=== PATIENT | female | born 1955 | race Caucasian/White ===

== ENCOUNTER 2019-11-17 12:00 | Outpatient (RCR) | payer MEDICARE, OTHER, SELFPAY ==
--- NOTE | 2019-11-17 13:41 | OTOPEVAL ---
OCCUPATIONAL THERAPY INITIAL EVALUATION 11/17/2019 Thank you for referring this patient to [facility]. La will benefit from skilled OT 1x/week for 6 weeks for deficits outlined below. Please review, sign, date and return this plan of care WHITNEY. I agree with and certify that the following plan of care is medically necessary. Referring Physician Date Referring Provider: Anjel Vail MD *OT Outpatient Evaluation Start: 11/17/19 12:37 Freq: Status: Active Protocol: Document 11/17/19 12:37 ROGER (Rec: 11/17/19 13:33 ROGER [email or web address]) Therapy Assessment Status Assessment Status Assessment Status Evaluation Outpatient Past Medical History Neurological History Hx Other Neurological Disorders Yes Cardiovascular History Hx Cardiac Catheterization Yes: 2004 Genitourinary History Hx Kidney Stones Yes Musculoskeletal History Hx Arthritis Yes: cervical and thoracic spine, left hip, B hands Hx Joint Replacement Yes: B TKA 2015 Reproductive History Hx Hysterectomy Yes: 1994 Pain History Has Past Pain Affected Your Daily Life Yes: Fibromyalgia Evaluation Information Problem Diagnosis 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 Onset 11/03/19 Prior Level of Function Activity Level (Last 3 Months) Hand Dominance Right Activity of Daily Living Ability Independent Cooking Yes Cleaning Yes Laundry Yes Shopping Yes Driving Yes Pain Assessment Timing of Pain Assessment Timing of Pain Assessment Assessment Pain Scale Pain Scale Used Numeric (1 - 10) Self Report Pain Assessment Left Thumb(s) Reported Pain Level 2 Pain Description Aching,Dull Greatest Pain Intensity 6 Pain Score Pain Score 2: Self Report Upper Extremity Range of Motion Elbow/Forearm Range of Motion Bilateral Forearm Supination - Active 85 Forearm Pronation - Active 85 Elbow/Forearm Range of Motion None Limitations Wrist Range of Motion Right Wrist Flexion - Active 65 Wrist Extension - Active 70 Wrist Radial Deviation - Active 22 Wrist Ulnar Deviation - Active 40 Left Wrist Flexion - Active 50 Wrist Extension - Active 60 Wrist Radial Deviation - Active 15 Wrist Ulnar Deviation - Active 40 Thumb Range of Motion Right Thumb MCP Flexion - Active 50 Thumb IP Flexion - Active 85 Thumb CMC Radial Abduction - Active 55 Thumb CMC Palmar Abduction - Active 50 Opposition to 5th Digit Base 0 Left
--- NOTE | 2019-12-29 15:05 | OTOPEVAL ---
OCCUPATIONAL THERAPY RE-EVALUATION AND DISCHARGE REPORT 12/29/2019 Thank you for referring La Heck to [facility]. As described below, La has achieved normal ROM and is independent with strengthening. She demonstrates good understanding of HEP. Please review, sign, date and return this D/C WHITNEY. I agree with and certify that the following plan of care is medically necessary. 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 She has progressed well with therapy, achieving normal ROM values, which are symmetrical or greater than the right side. She continues to have decreased pinch strengths, but a this time is independent with home exercises to continue to gently improve her strength over time. Subjective Information Patient reports improved Query Text:As Reported By Patient/ ability to open a jar, tie Family bows, opening containers/bags, and holding her phone. She reports being very pleased with her progress and is in agreement with discharge. She understands to continue her graded strengthening program for at least another 3 weeks. Pain Assessment Timing of Pain Assessment Timing of Pain Assessment Re-assessment Pain Scale Pain Scale Used Numeric (1 - 10) Self Report Pain Assessment Left Thumb(s) Reported Pain Level 0 Pain Score Pain Score 0: Self Report Additional Pain Score Comments No pain at rest Pain increases to 3/10 with ADLs and with home exercises Pt is independent with non- medication pain mgmt Upper Extremity Range of Motion Elbow/Forearm Range of Motion Left Reason Not Measured WNL/Left Elbow/Forearm Range of Motion Comments (L) elbow and forearm AROM remained WNL Wrist Range of Motion Left Wrist Flexion - Active 65 Wrist Extension - Active 70 Wr
== END 2019-12-29 15:33 | disposition home or self-care (01) ==
LOC: ANHOT 12:00
PROVIDERS: PCP Internal Medicine
DX: M18.0 Bilateral primary osteoarthritis of first carpometacarpal joints (principal)
CPT/HCPCS: 97018; 97110; 97140; 97165

== ENCOUNTER 2020-02-02 10:24 | Emergency (ER) | payer MEDICARE, OTHER, SELFPAY ==
[2020-02-02 10:42] VITALS: BP 172/87; PULSE 103; RESP 16; TEMP 36.8; O2SAT 97
--- NOTE | 2020-02-02 11:46 | ED.FEMALEGU ---
HPI - Female Genitourinary General Chief complaint: Urogenital-Female Stated complaint: possile UTI Time Seen by Provider: 02/02/20 11:47 Source: patient and RN notes reviewed Mode of arrival: ambulatory Limitations: no limitations History of Present Illness HPI Narrative: This is a 64 years old female presented office for evaluation of possible UTI. Symptoms began a couple days ago with lower back aches and then this morning she woke up with urinary retention, urgency, and painful with urinating. Denies fever, vomiting, abnormal vaginal discharge. Admits to history of UTI many years ago with similar symptoms. Related Data Home Medications Medication Instructions Recorded Confirmed albuterol sulfate 90 mcg/actuation 2 puff INHALATION Q4-6H PRN gm 07/25/19 02/02/20 aerosol inhaler blood sugar diagnostic #10 each 07/25/19 02/02/20 blood-glucose meter #1 each 07/25/19 02/02/20 cholecalciferol (vitamin D3) 50 2,000 unit PO DAILY 07/25/19 02/02/20 mcg (2,000 unit) tablet ferrous sulfate 325 mg (65 mg 325 mg PO DAILY 07/25/19 02/02/20 iron) tablet hydroxyzine HCl 50 mg tablet 50 mg PO TID PRN 07/25/19 02/02/20 lancets 33 gauge #100 each 07/25/19 02/02/20 multivitamin 1 tablet PO DAILY 07/25/19 02/02/20 syringe with needle, safety 3 mL #50 each 07/25/19 02/02/20 25 gauge x 1 cyanocobalamin (vitamin B-12) 1,000 mcg IM .[id number] ml 08/21/19 02/02/20 1,000 mcg/mL injection solution losartan 50 mg tablet 50 mg PO DAILY 12/30/19 02/02/20 Allergies Allergy/AdvReac Type Severity Reaction Status Date / Time No Known Allergies Allergy Verified 02/02/20 10:31 lisinopril AdvReac Intermediate Cough Verified 02/02/20 10:31 Review of Systems Review of Systems: Narrative: CONSTITUTIONAL: Denies fever or feeling ill. ENT: Denies congestion CARDIOVASCULAR: Denies chest pain RESPIRATORY: Denies dyspnea GASTROINTESTINAL: Denies abdominal pain, nausea, vomiting, diarrhea. GENITOURINARY: reports urinary pain,frequency, urgency and suprabupic pain SKIN: Denies rash MUSCULOSKELETAL: Reports lower back pain without any injury NEUROLOGIC: Denies lightheaded PMFSH Past Medical History Medical History Anxiety B12 deficiency Cholecystectomy planned Depression Diabetes mellitus Fibromyalgia GERD (gastroesophageal reflux disease) Hypercholesterolemia Hypertension Hypokalemia Insomnia RLS (restless legs syndrome) Syncope Surgical History Surgical History H/O abdominal hysterectomy H/O section H/O elbow surgery right Nerve release H/O gastric bypass H/O knee surgery Family History Family History Sibling Diabetes mellitus Mother Hypertension Father Family history of cardiovascular disease Heart disease Social History Social History Smoking status: Never smoker Alcohol intake: never Substance use: current Substance use type: marijuana Other substance usage details: Pt uses MMJ Gender identity (if verbalized by the patient): Female Comments At time of signature, I agree with nursing past medical, surgical, social and family history. There is no relevant family history pertinent to the presenting complaint. Exam Narrative: Exam Narrative: GENERAL: This is a well-nourished, well-developed patient, in no apparent distress. CARDIOVASCULAR: Regular rate and rhythm without murmurs, gallops, or rubs. RESPIRATORY: Clear to auscultation. Breath sounds equal bilaterally. No wheezes, rales, or rhonchi. GASTROINTESTINAL: Abdomen soft, non-tender, nondistended. Bowel sounds are active. No hepato-splenomegaly, or palpable masses. No guarding. SKIN: warm, intact with no suspicious lesions or rash, good texture and turgor. NEURO: awake, alert, and oriented to person, place and
== END 2020-02-02 11:55 | disposition home or self-care (01) ==
PROVIDERS: Emergency Provider Nurse Practitioner; PCP Internal Medicine
DX: N39.0 Urinary tract infection, site not specified (principal); E53.8 Deficiency of other specified B group vitamins; E11.9 Type 2 diabetes mellitus without complications; M79.7 Fibromyalgia; K21.9 Gastro-esophageal reflux disease without esophagitis; E78.00 Pure hypercholesterolemia, unspecified; G25.81 Restless legs syndrome; Z98.84 Bariatric surgery status
CPT/HCPCS: 81003; 87077; 87086; 87088; 87186; 99213; G0463

== ENCOUNTER 2020-04-12 09:11 | Outpatient (NON) | payer MEDICARE, OTHER, SELFPAY ==
[2020-04-12 19:46] LABS: SARS-CoV-2 RNA PCR Negative
== END 2020-04-12 09:12 ==
PROVIDERS: Visit Provider Clinical Nurse Specialist
DX: R53.83 Other fatigue (principal); Z20.828 Contact with and (suspected) exposure to other viral communicable diseases
CPT/HCPCS: 87635; C9803; U0003

== ENCOUNTER 2020-07-10 06:47 | Outpatient (NON) | payer MEDICARE, OTHER, SELFPAY ==
[2020-07-10 22:14] LABS: SARS-CoV-2 RNA PCR Negative
== END 2020-07-10 06:48 ==
PROVIDERS: PCP Internal Medicine; Visit Provider Nurse Practitioner
DX: Z20.828 Contact with and (suspected) exposure to other viral communicable diseases (principal); R05 Cough
CPT/HCPCS: 87635; C9803; U0003

== ENCOUNTER → 2020-07-22 14:44 | Outpatient (CLI) | payer MEDICARE, OTHER, SELFPAY ==
--- NOTE | ~2020-07-22 | XR_ITS ---
XR chest 2V DATE: 07/22/2020 15:06 INDICATION: Cough for 2 weeks TECHNIQUE: 2 views COMPARISON: 04/27/2019 portable AP chest at 2248 hours FINDINGS: There is cardiomegaly. There is rightward convex soft tissue prominence overlying the right suprahilar area on the frontal view, which may represent some prominence of the ascending aorta, pos sibly due to rotation; ascending aortic aneurysm is not excluded. Consider repeat PA chest without ro tation and CT thorax if necessary. Cardiomegaly. No pulmonary vascular congestion or pleural effusion or pneumothorax. The lungs are mod erately hyperinflated but clear of infiltrate or consolidation. Diffuse osteopenia. Degenerative spurring of the thoracic and lumbar spine. IMPRESSION: The ascending aorta appears prominent, possibly due to rotation; ascending aortic aneurys m is not excluded. Consider repeat PA chest without rotation, and CT thorax if necessary Cardiomegaly Moderate hyperinflation Diffuse osteopenia; degenerative spurring of the thoracic and lumbar spine Reviewed, dictated and finalized at location A. ETING AUTOMATION ANALYST IMPRESSION: The ascending aorta appears prominent, possibly due to rotation; as cending aortic aneurysm is not excluded. Consider repeat PA chest without rotat ion, and CT thorax if necessary Cardiomegaly Moderate hyperinflation Diffuse osteopenia; degenerative spurring of the thoracic and lumbar spine
== END ==
PROVIDERS: PCP Internal Medicine; Visit Provider Clinical Nurse Specialist
DX: R05 Cough (principal); M85.88 Other specified disorders of bone density and structure, other site; I51.7 Cardiomegaly
CPT/HCPCS: 71046

== ENCOUNTER → 2020-07-23 07:10 | Outpatient (CLI) | payer MEDICARE, OTHER, SELFPAY ==
--- NOTE | ~2020-07-23 | XR_ITS ---
EXAMINATION: XR chest 2V EXAM DATE: 07/23/2020 07:35 INDICATION: Cough. Rotation reported on yesterday's chest x-ray. TECHNIQUE: Frontal and lateral projections of the chest obtained and reviewed, no charge due to repea t from yesterday's exam. Comparison is made to prior examination from 07/22/2020, 04/27/2019. FINDINGS: The lungs are clear. There are no pleural effusions. The cardiomediastinal silhouette is within normal limits. There is no pneumothorax suspected. Patient has diffuse idiopathic skeletal h yperostosis (DISH). Mild to moderate thoracolumbar scoliosis. IMPRESSION: No acute cardiopulmonary findings. Reviewed, dictated and finalized at location A. MANAGER
== END ==
PROVIDERS: PCP Internal Medicine; Visit Provider Clinical Nurse Specialist
DX: R05 Cough (principal)
CPT/HCPCS: 99199

== ENCOUNTER 2021-06-15 09:00 | Outpatient (RCR) | payer MEDICARE, OTHER, SELFPAY ==
--- NOTE | 2021-05-25 11:40 | OTOPEVAL ---
OCCUPATIONAL THERAPY INITIAL EVALUATION 05/25/21 La presents today ~9 weeks following right thumb LRTI procedure. She has been completing active ROM with excellent compliance and has near normal ROM with some end-range deficits in the wrist and thumb. Today she was instructed in some gentle passive ROM exercises as well as progressed to light resistive singe machine operator/pinch strengthening. She demonstrates excellent understanding of the new HEP. Plan to have the patient follow up in 2 weeks to assess progress and continue to progress her resistive HEP as tolerated. It was not deemed necessary to follow up weekly as she is very compliant with all materials. Thank you for referring La Heck to [facility].? The patient is scheduled to be seen for therapy? 0-1x/week for 4 weeks. Please review, sign, date and return this plan of care WHITNEY. I agree with and certify that the following plan of care is medically necessary. Referring Physician Date Referring Provider: Dr. Anjel Vail *OT Outpatient Evaluation Start: 05/25/21 10:34 Therapy Assessment Status Assessment Status Assessment Status Evaluation Outpatient Past Medical History Neurological History Hx Other Neurological Disorders Yes: restless leg syndrome Cardiovascular History Hx Angina Yes Hx Cardiac Catheterization Yes: 2004 Hx Hypercholesterolemia Yes Hx Hypertension Yes Hx Mitral Valve Prolapse Yes Respiratory History Hx Asthma Yes Hx Sleep Apnea Yes Gastrointestinal History Hx Cholecystectomy Yes Hx Gastric Bypass Surgery Yes Hx Gastroesophageal Reflux Disease Yes Hx Gastrointestinal Bleed Yes Hx Irritable Bowel Yes Genitourinary History Hx Kidney Stones Yes Hx Other Genitourinary Disorders Yes: 2 blader suspensions and implant/removal of bladder implant Musculoskeletal History Hx Arthritis Yes: cervical and thoracic spine, left hip, B hands Hx Back Pain Yes Hx Degenerative Disk Disease Yes Hx Fibromyalgia Yes Hx Joint Replacement Yes: B TKA 2015 Hx Orthopedic Surgery Yes: elbow tendon release X 3 and left hand repair Hx Other Musculoskeletal Disorders Yes: Bilat LRTI procedures to thumbs Hematological History Hx Hematological Disorders No Significant History Endocrine History Hx Diabetes Yes: controlled with diet HEENT History Hx Sinus Problems Yes Integumentary History Hx Skin Disorders No Significant History Reproductive History Hx Section Yes Hx Hysterectomy Yes: 1994 Psychosocial History Hx Depression Yes Pain History Has Past Pain Affected Your Daily Life Yes: Fibromyalgia-uses medical marijuana
--- NOTE | 2021-06-15 10:59 | OTOPEVAL ---
OCCUPATIONAL THERAPY REASSESSMENT AND DISCHARGE SUMMARY 06/15/21 La presents today, 12 weeks post op, with return to normal ROM. She has functional strength, but does have some residual weakness for which she has HEP to continue to complete independently. Plan to d/c today with HEP. Patient is in agreement with this plan and is happy with her outcomes. Thank you for referring La Heck to [facility].? Please review, sign, date and return this Discharge Summary WHITNEY. I agree with and certify that the following plan of care is medically necessary. Referring Physician Date Referring Provider: Dr. Anjel Vail *OT Outpatient Re-Evaluation Start: 05/25/21 10:34 Diagnosis Right thumb CMC s/p LRTI procedure Onset 03/21/21 Subjective Information Patient reports that in the Query Text:As Reported By Patient/ last three weeks she has made Family a lot of progress with functional use of the hand. Noting no difficulties with ADLs and she has returned to making cards again. She does feel some soreness in the hand after prolonged use, but no pain. Pain Assessment Timing of Pain Assessment Timing of Pain Assessment Pre-Treatment Pain Scale Pain Scale Used Numeric (1 - 10) Self Report Pain Assessment Right Thumb(s) Reported Pain Level 0 Pain Description Soreness Lowest Pain Intensity 0 Greatest Pain Intensity 0 Pain Score Pain Score 0: Self Report Additional Pain Score Comments No reports of pain in the last week, just some muscle soreness from working the hand /wrist. Upper Extremity Range of Motion Wrist Range of Motion Right Wrist Flexion - Active 70 Wrist Extension - Active 70 Wrist Radial Deviation - Active 25 Wrist Ulnar Deviation - Active 40 Wrist Range of Motion Comments Wrist ROM returned to normal limits. Finger Range of Motion Right Reason Not Measured WNL/Right Finger Range of Motion Comments Hook fist, full fist, lumbricals, and interossei are WNL. Thumb Range of Motion Right Thumb MCP Flexion - Active 45 Thumb IP Flexion - Active 65 Thumb CMC Radial Abduction - Active 45 Thumb CMC Palmar Abduction - Active 50 Opposition to 2nd Digit Tip 0 Opposition to 3rd Digit Tip 0 Opposition to 4th Digit Tip 0 Opposition to 5th Digit Tip 0 Opposition to 5th Digit Base 0 Thumb Range of Motion Comments Right thumb ROM is
== END 2021-06-15 15:29 | disposition home or self-care (01) ==
LOC: ANHOT 09:00
PROVIDERS: PCP Internal Medicine
DX: M18.11 Unilateral primary osteoarthritis of first carpometacarpal joint, right hand (principal)
CPT/HCPCS: 97018; 97110; 97140; 97165

== ENCOUNTER 2021-07-17 12:44 | Emergency (ER) | payer MEDICARE, OTHER, SELFPAY ==
[2021-07-17 12:56] VITALS: BP 130/71; PULSE 105; RESP 16; TEMP 37.3; O2SAT 98
--- NOTE | 2021-07-17 13:24 | ED.URI ---
HPI - URI/Sore Throat General Chief Complaint: Upper Respiratory Infection Stated Complaint: Congestion Time Seen by Provider: 07/17/21 13:07 Source: patient and RN notes reviewed Mode of arrival: ambulatory Limitations: no limitations History of Present Illness HPI Narrative: Patient presents today with a 10-day history of cough with mild shortness of breath and fatigue. Symptoms have been worsening over the last 2 days. Denies headache, sore throat, ear pain, fever. She took a rapid COVID-19 test at home that was negative a few days ago. She has been taking some Robitussin severe without relief. History of diabetes. MD elicited complaint: cough Related Data Home Medications Medication Instructions Recorded Confirmed blood sugar diagnostic #10 each 07/25/19 07/17/21 blood-glucose meter #1 each 07/25/19 07/17/21 ferrous sulfate 325 mg (65 mg 325 mg PO DAILY 07/25/19 07/17/21 iron) tablet lancets 33 gauge #100 each 07/25/19 07/17/21 multivitamin 1 tablet PO DAILY 07/25/19 07/17/21 magnesium 30 mg tablet 30 mg PO DAILY 03/02/21 07/17/21 potassium chloride 10 mEq 10 meq PO DAILY 03/02/21 07/17/21 tablet,extended release bupropion HCl 100 mg tablet 100 mg PO BID 06/08/21 07/17/21 metformin 500 mg tablet,extended 500 mg PO BID 06/08/21 07/17/21 release 24 hr sertraline 50 mg PO DAILY 07/17/21 07/17/21 Allergies Allergy/AdvReac Type Severity Reaction Status Date / Time lisinopril AdvReac Intermediate Cough Verified 07/17/21 13:04 Review of Systems Review of Systems: CONSTITUTIONAL: Denies body aches, fever, chills, or sweats.+ Fatigue EYES: Denies visual changes, redness, or discharge. ENT: Denies rhinorrhea, sore throat, or otalgia.+ Congestion CARDIOVASCULAR: Denies chest pain, palpitations, or edema. RESPIRATORY: + Cough, mild shortness of breath GASTROINTESTINAL: Denies abdominal pain, nausea, vomiting, or diarrhea. GENITOURINARY: Denies dysuria or hematuria. SKIN: Denies rash, itching, or wounds. MUSCULOSKELETAL: Denies back pain, joint pain, or myalgia. NEUROLOGIC: Denies headache, numbness, tingling, or weakness. PSYCH: Denies depression or anxiety. [facility] Past Medical History Medical History Anxiety B12 deficiency Cholecystectomy planned Diabetes mellitus Fibromyalgia GERD (gastroesophageal reflux disease) Hypercholesterolemia Hypertension Hypokalemia Insomnia RLS (restless legs syndrome) Syncope Surgical History Surgical History H/O abdominal hysterectomy H/O section H/O elbow surgery right Nerve release H/O gastric bypass H/O knee surgery History of hand surgery left hand 10/2019 Family History Family History Sibling Diabetes mellitus Mother Hypertension Father Family history of cardiovascular disease Heart disease Social History Social History Smoking status: Never smoker Alcohol intake: current Alcohol use details: very rarely Substance use: current Substance use type: marijuana Other substance usage details: Pt uses MMJ Gender identity (if verbalized by the patient): Female Comments At time of signature, I have reviewed and agree with nursing past medical, surgical, social and family history unless otherwise noted. Please see nursing chart for further information. There is no relevant family history pertinent to the presenting complaint Exam Narrative: GENERAL: Well-appearing, well-nourished, and in no acute distress. HEAD: Normocephalic, atraumatic. EYES: EOMI. No redness or drainage. Conjunctivae normal. ENT: Mucous membranes pink and moist. Nares clear. No rhinorrhea. TMs normal bilaterally. Throat normal. Uvula midline. NECK: Normal AROM. Supple. No lymphadenopathy. CHEST: No respiratory
== END 2021-07-17 13:40 | disposition home or self-care (01) ==
PROVIDERS: Emergency Provider Nurse Practitioner; PCP Internal Medicine
DX: J40 Bronchitis, not specified as acute or chronic (principal); J01.90 Acute sinusitis, unspecified; E11.9 Type 2 diabetes mellitus without complications; M79.7 Fibromyalgia; K21.9 Gastro-esophageal reflux disease without esophagitis; E78.00 Pure hypercholesterolemia, unspecified; I10 Essential (primary) hypertension; G25.81 Restless legs syndrome; F41.9 Anxiety disorder, unspecified
CPT/HCPCS: 99213; G0463

== ENCOUNTER → 2021-08-01 14:22 | Outpatient (CLI) | payer MEDICARE, OTHER, SELFPAY ==
--- NOTE | ~2021-08-01 | XR_ITS ---
EXAMINATION: XR hip LT min 2V DATE: 08/01/2021 14:40 INDICATION: Left hip pain. TECHNIQUE: 2 views of left hip were obtained. COMPARISON: Pelvis radiographs 11/13/2014 FINDINGS: Bone alignment is normal. No acute fracture. There is an old healed fracture of left parasy mphyseal pubis. Left hip joint space is normal. IMPRESSION: 1. Normal left hip. Reviewed, dictated and finalized at location B. NING DEVELOPMENT MANAGER IMPRESSION: 1. Normal left hip.
== END ==
PROVIDERS: PCP Internal Medicine; Visit Provider Clinical Nurse Specialist
DX: M25.559 Pain in unspecified hip (principal); W19.XXXA Unspecified fall, initial encounter
CPT/HCPCS: 73502

== ENCOUNTER 2021-08-12 08:07 | Outpatient (CLI) | payer MEDICARE, OTHER, SELFPAY ==
--- NOTE | 2021-08-15 11:30 | WPDSLEEPSTUD ---
Sleep Study Date of Study: 08/12/21 <Aminah Garay, DO - Last Filed: 08/15/21 12:55> Ordering Provider: Bonilla WalkerMD <Aminah Garay, DO - Last Filed: 08/15/21 12:55> Interpreting Physician: Aminah Garay DO <Aminah Garay, DO - Last Filed: 08/15/21 12:55> Sleep Study Type: Polysomnogram <Aminah Garay DO - Last Filed: 08/15/21 12:55> Height: 1.68 m <Aminah Garay DO - Last Filed: 08/15/21 12:55> Weight: 113.398 kg <Aminah Garay DO - Last Filed: 08/15/21 12:55> Body Mass Index: 40.3 <Aminah Garay DO - Last Filed: 08/15/21 12:55> Neck Circumference (inches): 17 <Aminah Garay DO - Last Filed: 08/15/21 12:55> Florien: 9 <Aminah Garay DO - Last Filed: 08/15/21 12:55> Reason for Sleep Study The patient has a history of JENNIFER. Had gastric bypass and lost a significant amount of weight. Has started gaining weight and has poor sleep. <Aminah Garay DO - Last Filed: 08/15/21 12:55> Sleep History The patient is a 66 y/o female with HTN, Type 2 DM, RLS, Anxiety, Depression, and previously diagnosed JENNIFER that had a PSG ordered by her psychiatrist for unrefreshing sleep. The patient sleeps in a recliner. at home. She is currently on ropinirole 2 mg tid for RLS. the patient occasionally awakens from sleep short of breath. She denies awakening at night with heartburn, belching or cough. She occasionally snores but is rarely loud enough that others complain. She occasionally has trouble sleeping when she has a cold. She denies waking up gasping for air throughout the night. She denies having breathing problems at night observed by others. She denies sweating excessively at night. She occasionally has heart palpitations or irregular heartbeats during the night. She frequently falls asleep during the day but never while driving. She denies sleep paralysis, cataplexy and hypnagogic / hypnopompic hallucinations. She occasionally has thoughts racing through her mind. She frequently feels sad or depressed. She frequently feels anxious. She frequently notices parts of her body jerk. She occasionally kicks during the night. She frequently experiences crawling and aching feelings in her legs as well as leg pain during the night. She denies grinding her teeth during the night and awakening with jaw pain in the morning. She is constantly bothered by pain during the day and frequently awakened by pain during the night. She constantly wakes up feeling stiff in the morning with sore and achy muscles. She goes to bed at 11:00 p.m. on weekdays as well as weekends. It takes her 10 minutes to fall asleep. She wakes up between 3 and 4 times a night. When she awakens, she will change positions and watch television. She wakes up at 4:00 a.m. on both weekdays and weekends. She typically gets 2-3 hours of sleep per night. She does not stay in bed after awakening in the morning. She currently lives with her . She denies consuming any caffeinated beverages within 2 hours of bedtime. She does not engage in physical exercise before bedtime. He will watch television before falling asleep. She does take naps in the afternoon or the evening but they are not refreshing. She does not consume any caffeinated beverages during the day. She denies tobacco, alcohol and recreational drug use. She does use medical marijuana. <Aminah Garay DO - Last Filed: 08/15/21 12:55> [facility] Past Medical History Medical History: Medical History Anxiety B12 deficiency Cholecystectomy planned Diabetes mellitus Fibromyalgia GERD (gastroesophageal reflux disease) Hypercholesterolemia Hypertension Hypokalemia Insomnia RLS (restless legs syndrome) Syncope <Aminah Garay DO - Last Filed: 08/15/21 12:55> Surgical History Surgical History: Surgical
[2021-08-15 11:36] VITALS: BMI 40.3
== END 2021-08-13 07:18 | disposition home or self-care (01) ==
LOC: ANHCSM 08:13
PROVIDERS: PCP Internal Medicine; Visit Provider Psychiatry & Neurology Psychiatry
DX: G47.33 Obstructive sleep apnea (adult) (pediatric) (principal); G47.9 Sleep disorder, unspecified; G47.61 Periodic limb movement disorder; I47.2 Ventricular tachycardia
CPT/HCPCS: 95810

== ENCOUNTER 2022-01-05 01:03 | Day surgery (SDC) | payer MEDICARE, OTHER, SELFPAY ==
[2021-12-23 12:47] VITALS: BMI 36.3
--- NOTE | 2022-01-05 07:59 | WPDANESEPPF ---
Anes - Initial Pre Proc Eval Procedure: Operation Date: 01/05/22 10:30 Proposed Procedures p Screening Colonoscopy - Nithin Marmolejo MD Date/Time: 01/05/22 07:59 Surgeon: Nithin Marmolejo MD Pre Op Diagnosis: neoplasm screening Patient Data Age: 66 Gender: F Height: 1.68 m Weight: 102.3 kg Allergies Allergy/AdvReac Type Severity Reaction Status Date / Time lisinopril AdvReac Intermediate Cough Verified 01/05/22 09:51 Home Medications Medication Instructions Recorded Confirmed Type blood sugar diagnostic #10 each 07/25/19 12/07/21 History blood-glucose meter #1 each 07/25/19 12/07/21 History ferrous sulfate 325 mg (65 mg 325 mg PO DAILY 07/25/19 01/05/22 History iron) tablet lancets 33 gauge #100 each 07/25/19 12/07/21 History multivitamin 1 tablet PO DAILY 07/25/19 01/05/22 History albuterol sulfate 90 mcg/actuation 2 puff INHALATION Q4-6H PRN #8.5 g 07/12/20 01/05/22 Rx aerosol inhaler cholecalciferol (vitamin D3) 1,250 1,250 mcg PO WEEKLY #8 cap 08/18/20 01/05/22 Rx mcg (50,000 unit) capsule hydroxyzine HCl 50 mg tablet 50 mg PO TID PRN #90 tablet 12/01/20 01/05/22 Rx magnesium 30 mg tablet 30 mg PO DAILY 03/02/21 01/05/22 History syringe with needle, safety 3 mL #50 each 04/28/21 12/07/21 Rx 25 gauge x 1 buspirone 10 mg tablet 10 mg PO BID #180 tablet 05/23/21 01/05/22 Rx metformin 500 mg tablet,extended 500 mg PO BID 06/08/21 01/05/22 History release 24 hr cyclobenzaprine 10 mg tablet 10 mg PO BID PRN #30 tablet 08/01/21 01/05/22 Rx hydrochlorothiazide 25 mg tablet 25 mg PO DAILY 08/01/21 01/05/22 History potassium chloride 10 mEq 10 meq PO DAILY #1 cap 08/01/21 01/05/22 Rx capsule,extended release arginine HCl (L-arginine) 1,000 mg 1,000 mg PO BID tablet 09/26/21 01/05/22 History tablet furosemide 40 mg tablet 40 mg PO QAM PRN 09/26/21 01/05/22 History nitroglycerin 0.2 mg/hr 1 patch TRANSDERMAL DAILY 09/26/21 01/05/22 History transdermal 24 hour patch sacubitril 49 mg-valsartan 51 mg 1 tablet PO BID 09/26/21 01/05/22 History tablet sertraline 50 mg tablet 100 mg PO DAILY tablet 09/26/21 01/05/22 History ropinirole 2 mg tablet 2 mg PO TID #90 tablet 10/27/21 01/05/22 Rx cyanocobalamin (vitamin B-12) 1,000 mcg IM .[id number] #25 ml 12/07/21 01/05/22 Rx 1,000 mcg/mL injection solution gabapentin 300 mg capsule 300 mg PO TID #270 cap 12/07/21 01/05/22 Rx metoprolol tartrate 25 mg tablet 25 mg PO BID tablet 12/07/21 01/05/22 History rosuvastatin 10 mg tablet 10 mg PO DAILY #90 tablet 12/07/21 01/05/22 Rx trazodone 50 mg tablet 50 mg PO QHS PRN tablet 12/07/21 01/05/22 History Patient hx anesthesia problems: none Family hx anesthesia problems: none Results Review: All pre-operative results and documents have been reviewed as part of the pre-operative evaluation. FORMERLY [facility] Past Medical History Medical History (Updated 01/05/22 @ 08:01 by Wilmar Diaz MD) Anxiety Asthma B12 deficiency CAD (coronary artery disease) Cholecystectomy planned Depression Diabetes mellitus Fibromyalgia GERD (gastroesophageal reflux disease) Hypercholesterolemia Hypertension Hypokalemia Insomnia Left ventricular hypertrophy Obesity JENNIFER (obstructive sleep apnea) RLS (restless legs syndrome) Syncope Systolic heart failure ef 45% Surgical History Surgical History (Updated 01/05/22 @ 09:50 by Nithin Marmolejo MD) H/O abdominal hysterectomy H/O section H/O elbow surgery right Nerve release H/O gastric bypass H/O knee surgery History of hand surgery left hand 10/2019 Family History Family History Sibling Diabetes mellitus Mother Hypertension Father Family history of cardiovascular disease Heart disease Social History Social History Smoking status: Never smoker Alcohol intake: never Alcohol use details: very rarely Substance use: current
--- NOTE | 2022-01-05 09:48 | WPDGICN ---
Assessment and Plan Assessment and plan (1) Screening for colon cancer: Code(s): Z12.11 - Encounter for screening for malignant neoplasm of colon Status: Acute Assessment and Plan: Patient presents for screening colonoscopy. Appears to be at average risk for colon polyps. Further recommendations will be given after endoscopy. (2) Change in bowel habit: Code(s): R19.4 - Change in bowel habit Status: Acute Assessment and Plan: Patient reports occasional episodes of diarrhea after eating this may represent dumping syndrome although irritable bowel syndrome is also likely. Plan is to add fiber to her diet. (3) H/O gastric bypass: Code(s): Z98.84 - Bariatric surgery status Status: Acute GI Consult Note Consult date/time: 01/05/22 09:48 HPI: La Heck is a 66 year old female Presents for screening colonoscopy. Patient current weight appetite bowel movements are normal. She denies abdominal pain. She has had no bleeding. Patient does give a history of prior gastric bypass. She reports that occasionally after eating she will have an urgent diarrhea stool. This is improved on recently adding fiber to her diet. She denies any weight loss or abdominal pain. Family history is noncontributory. Review of Systems Review of Systems: All systems reviewed & are unremarkable except as noted in HPI and below PMFSH Past Medical History Medical History (Updated 01/05/22 @ 08:01 by Wilmar Diaz MD) Anxiety Asthma B12 deficiency CAD (coronary artery disease) Cholecystectomy planned Depression Diabetes mellitus Fibromyalgia GERD (gastroesophageal reflux disease) Hypercholesterolemia Hypertension Hypokalemia Insomnia Left ventricular hypertrophy Obesity JENNIFER (obstructive sleep apnea) RLS (restless legs syndrome) Syncope Systolic heart failure ef 45% Surgical History Surgical History (Updated 01/05/22 @ 09:50 by Nithin Marmolejo MD) H/O abdominal hysterectomy H/O section H/O elbow surgery right Nerve release H/O gastric bypass H/O knee surgery History of hand surgery left hand 10/2019 Family History Family History Sibling Diabetes mellitus Mother Hypertension Father Family history of cardiovascular disease Heart disease Social History Social History Smoking status: Never smoker Alcohol intake: never Alcohol use details: very rarely Substance use: current Substance use type: marijuana Other substance usage details: medical marijuana as needed Living arrangements: with family Gender identity (if verbalized by the patient): Female Spiritual care concerns: No Meds Home Medications and Allergies Home Medications Medication Instructions Recorded Confirmed Type blood sugar diagnostic #10 each 07/25/19 12/07/21 History blood-glucose meter #1 each 07/25/19 12/07/21 History ferrous sulfate 325 mg (65 mg 325 mg PO DAILY 07/25/19 12/23/21 History iron) tablet lancets 33 gauge #100 each 07/25/19 12/07/21 History multivitamin 1 tablet PO DAILY 07/25/19 12/23/21 History albuterol sulfate 90 mcg/actuation 2 puff INHALATION Q4-6H PRN #8.5 g 07/12/20 12/23/21 Rx aerosol inhaler cholecalciferol (vitamin D3) 1,250 1,250 mcg PO WEEKLY #8 cap 08/18/20 12/23/21 Rx mcg (50,000 unit) capsule hydroxyzine HCl 50 mg tablet 50 mg PO TID PRN #90 tablet 12/01/20 12/23/21 Rx magnesium 30 mg tablet 30 mg PO DAILY 03/02/21 12/23/21 History syringe with needle, safety 3 mL #50 each 04/28/21 12/07/21 Rx 25 gauge x 1 buspirone 10 mg tablet 10 mg PO BID #180 tablet 05/23/21 12/23/21 Rx metformin 500 mg tablet,extended 500 mg PO BID 06/08/21 12/23/21 History release 24 hr cyclobenzaprine 10 mg tablet 10 mg PO BID PRN #30 tablet 08/01/21 12/23/21 Rx hydrochlorothiazide 25 mg tablet 25 mg PO DAILY 08/01/21 12/23/21 H
[2022-01-05 09:53] VITALS: BP 114/66; PULSE 80; RESP 18; TEMP 36.2; O2SAT 100; BMI 35.0
[2022-01-05 09:53] LABS: Glucose Point of Care 113 mg/dl (65-105)
--- NOTE | 2022-01-05 09:57 | SUR.PREOP ---
Notified Dr. Daiz that patient is wearing a Nitrodur patch on her left chest.
[2022-01-05] MEDS: LACTATED RINGERS 1,000 ML 150 ML IV CONT (10:14)
[2022-01-05 11:11] VITALS: BP 87/49; PULSE 83; RESP 24; O2SAT 100
[2022-01-05 11:21] VITALS: BP 106/58; PULSE 80; RESP 20; O2SAT 100
[2022-01-05 11:31] VITALS: BP 98/55; PULSE 80; RESP 22; O2SAT 100
== END 2022-01-05 11:48 | disposition home or self-care (01) ==
PROVIDERS: PCP Internal Medicine; Visit Provider Internal Medicine Gastroenterology
PROC: 0DJD8ZZ Inspection of Lower Intestinal Tract, Via Natural or Artificial Opening Endoscopic (ICD-10-PCS; CPT 45378; principal; 2022-01-05 10:30)
DX: Z12.11 Encounter for screening for malignant neoplasm of colon (principal); D12.2 Benign neoplasm of ascending colon; K64.8 Other hemorrhoids; K57.30 Diverticulosis of large intestine without perforation or abscess without bleeding; R19.4 Change in bowel habit; Z98.84 Bariatric surgery status; I11.0 Hypertensive heart disease with heart failure; I50.20 Unspecified systolic (congestive) heart failure; I25.10 Atherosclerotic heart disease of native coronary artery without angina pectoris; E11.9 Type 2 diabetes mellitus without complications; E78.00 Pure hypercholesterolemia, unspecified; F41.8 Other specified anxiety disorders; J45.909 Unspecified asthma, uncomplicated; M79.7 Fibromyalgia; G47.33 Obstructive sleep apnea (adult) (pediatric); G25.81 Restless legs syndrome; E53.8 Deficiency of other specified B group vitamins; F12.90 Cannabis use, unspecified, uncomplicated; Z79.51 Long term (current) use of inhaled steroids; Z79.84 Long term (current) use of oral hypoglycemic drugs; E66.9 Obesity, unspecified; Z68.35 Body mass index [BMI] 35.0-35.9, adult
CPT/HCPCS: 45385; 82948; 88305; J2704; J7120

== ENCOUNTER → 2022-02-27 11:08 | Outpatient (CLI) | payer MEDICARE, OTHER, SELFPAY ==
--- NOTE | ~2022-02-27 | XR_ITS ---
XR lumbar spine min 4V DATE: 02/27/2022 11:32 INDICATION: Back pain TECHNIQUE: AP, lateral, bilateral oblique views and coned lateral lumbosacral projection COMPARISON: 08/04/2013 lumbar spine FINDINGS: Mild thoracolumbar dextroscoliosis. Prominent bridging osteophytes are noted throughout the lower thoracic and lumbar spine. There is moderate loss of interspace height at L3-4, L4-5 and L5-S1. There is degenerative changes apophyseal joints with associated grade 1 anterolisthesis at L4-5. No lumbar spine fracture or bone destruction, spondylolysis. The sacroiliac joints are intact. Surgical clips, right upper quadrant, likely due to cholecystectomy. Distal abdominal aortic, common iliac artery calcification IMPRESSION: Mild thoracolumbar dextro scoliosis Osteopenia Bridging osteophytes throughout the lower thoracic and lumbar spine Moderate degenerative disc disease mid and lower lumbar spine Grade 1 anterolisthesis at L4-5 due to degenerative change at the apophyseal joints Reviewed, dictated and finalized at location A. IMPRESSION: Mild thoracolumbar dextro scoliosis Osteopenia Bridging osteophytes throughout the lower thoracic and lumbar spine Moderate degenerative disc disease mid and lower lumbar spine Grade 1 anterolisthesis at L4-5 due to degenerative change at the apophyseal elyssa ints
== END ==
PROVIDERS: PCP Family Medicine; Visit Provider Family Medicine
DX: M54.9 Dorsalgia, unspecified (principal); G89.29 Other chronic pain; M41.85 Other forms of scoliosis, thoracolumbar region; M25.78 Osteophyte, vertebrae; M51.36 Other intervertebral disc degeneration, lumbar region; M43.16 Spondylolisthesis, lumbar region
CPT/HCPCS: 72110

== ENCOUNTER → 2022-05-01 13:18 | Outpatient (CLI) | payer MEDICARE, OTHER, SELFPAY ==
--- NOTE | ~2022-05-01 | MM_ITS ---
EXAMINATION: MM screening ev BI w giorgi HISTORY: Screening TECHNIQUE: Craniocaudal and mediolateral oblique 3-D tomosynthesis images were obtained and synthetic 2-D images were generated. CAD analysis was submitted and interpreted. COMPARISON: No prior mammogram is available for comparison at this institution. BREAST PARENCHYMAL COMPOSITION: The breasts are almost entirely fatty. FINDINGS: There is no evidence of suspicious mass, calcification, or architectural distortion to sugg est malignancy in either breast. There has been no suspicious interval change. IMPRESSION: 1. No mammographic evidence of malignancy. 2. Recommend routine screening mammography in one year. BI-RADS Category 1: Negative Reviewed, dictated and finalized at location A.
== END ==
PROVIDERS: PCP Family Medicine; Visit Provider Family Medicine
DX: Z12.31 Encounter for screening mammogram for malignant neoplasm of breast (principal)
CPT/HCPCS: 77063; 77067

== ENCOUNTER → 2022-05-30 13:53 | Outpatient (CLI) | payer MEDICARE, OTHER, SELFPAY ==
--- NOTE | ~2022-05-30 | XR_ITS ---
XR_[id number]_CR DATE: 05/30/2022 14:08 INDICATION: Stubbed fifth toe. Pain and swelling. TECHNIQUE: Standing 4 view examination COMPARISON: None FINDINGS: There is prominent posterior and minimal plantar calcaneal enthesopathy. There is prominent osteoarthritis at the first metatarsophalangeal joint. There is osteoarthritis at multiple additional interphalangeal joints. No erosive change is noted. No fracture, dislocation, periosteal reaction or bone destruction is detected. IMPRESSION: Multifocal osteophyte is Calcaneal enthesopathy No recent fracture or dislocation Reviewed, dictated and finalized at Location A. Reviewed, dictated and finalized at location B.
== END ==
PROVIDERS: PCP Family Medicine; Visit Provider Family Medicine
DX: M19.071 Primary osteoarthritis, right ankle and foot (principal); M77.31 Calcaneal spur, right foot
CPT/HCPCS: 73630

== ENCOUNTER → 2022-05-31 10:28 | Outpatient (CLI) | payer MEDICARE, OTHER, SELFPAY ==
--- NOTE | ~2022-05-31 | DEXA_ITS ---
Bone Density Report Name: QUANG SPIVEY Age: 66 Sex: Female Ethnicity: White Date of : 1955 Indication: postmenopausal; screening for osteoporosis; height loss; asthma or emphysema; end stage renal disease; hysterectomy; Referring Provider: NARGIS DOUGLAS Study: Bone densitometry was performed. Exam Date: May 31, 2022 Accession number: [id number] Bone Density: Region BMD T-score Z-score Classification AP Spine (L1, L2) 1.006 0.2 2.0 Normal Femoral Neck (Left) 0.763 -0.8 0.8 Normal Total Hip (Left) 0.978 0.3 1.6 Normal Femoral Neck (Right) 0.774 -0.7 0.9 Normal Total Hip (Right) 0.989 0.4 1.7 Normal Total Hip Mean 0.984 0.4 1.7 Normal World Health Organization criteria for BMD impression classify patients as: Normal (T-score at or above -1.0), Osteopenia (T-score between -1.0 and -2.5), or Osteoporosis (T-score at or below -2.5). 10-year Fracture Risk: FRAX not reported because: All T-scores for Spine Total, Hip Total, Femoral Neck at or above -1.0 Previous Exams: Region Exam Age BMD T-score BMD Change BMD Change Date g/cm2 vs Baseline vs Previous AP Spine(L1, L2) 05/31/2022 66 1.006 0.2 0.010 0.010 10/16/2011 56 0.996 0.2 Total Hip(Left) 05/31/2022 66 0.978 0.3 -0.041 -0.041 10/16/2011 56 1.019 0.6 Total Hip(Right) 05/31/2022 66 0.989 0.4 -0.032 -0.032 10/16/2011 56 1.021 0.6 *Denotes significance at 95% confidence level, LSC for AP Spine = 0.022 g/cm2, LSC for Total Hip = 0.027 g/cm2 Clinical Information Provided by Patient: Has used the following medications: Vitamin D, Calcium Has the following medical conditions: Asthma or Emphysema, End stage renal disease, Hysterectomy, Stage 3 kidney disease Patient maximum height was 67 Menopause Age: 54 No regular weight bearing exercise Does not regularly consume dairy products Onset of menses at age 11 Number of children 2 Impression: The patient has normal bone mass. No significant bone loss was observed. Discussion: BONE DENSITY IS ABOVE THE MINIMUM DESIRABLE LEVEL AT ALL SKELETAL SITES TESTED. This patient?s bone mineral density is above the minimum desirable level (T-score -1.0 or better) at all sites measured. The patient should follow a healthful lifestyle (good nutrition with adequate calcium and vitamin D, and appropriate weight-bearing exercise). Follow-Up: Consider repeating this s
== END ==
PROVIDERS: PCP Family Medicine; Visit Provider Family Medicine
DX: Z78.0 Asymptomatic menopausal state (principal)
CPT/HCPCS: 77080

== ENCOUNTER → 2022-06-12 10:20 | Outpatient (CLI) | payer MEDICARE, OTHER, SELFPAY ==
--- NOTE | ~2022-06-12 | MR_ITS ---
EXAMINATION: MR lumbar spine wo con DATE: 06/12/2022 10:52 INDICATION: Low back pain. TECHNIQUE: Magnetic resonance imaging (MRI) of the lumbar spine was performed without intravenous con trast. Sequences included sagittal T2-weighted FSE, sagittal T2-weighted FS FSE, sagittal T1-weighted FSE, and axial T2-weighted FSE. COMPARISON: Lumbar spine radiograph 02/27/2022 FINDINGS: There is 5 mm anterolisthesis of L4 on L5. Vertebral body heights are normal. There is mild ly decreased disc height at L2-L3, moderately decreased disc height at L3-L4, and mildly decreased di sc height at L4-L5 and L5-S1. The distal spinal cord signal intensity is normal. The conus medullaris is at T12-L1. The following disc levels are specifically discussed: L1-L2: The disc does not extend beyond the endplate margin. There is mild bilateral facet joint osteo arthritis. There is no neural foraminal stenosis. There is no central canal stenosis. L2-L3: The disc is bulging. There is mild bilateral facet joint osteoarthritis. There is mild bilater al neural foraminal stenosis. There is mild central canal stenosis. L3-L4: The disc is bulging. There is severe bilateral facet joint osteoarthritis. There is mild bilat eral neural foraminal stenosis. There is mild central canal stenosis. L4-L5: The disc does not extend beyond the endplate margin. There is severe bilateral facet joint ost eoarthritis. There is mild bilateral neural foraminal stenosis. There is mild central canal stenosis. L5-S1: The disc is bulging and has an annular fissure. There is severe bilateral facet joint osteoart hritis. There is mild right neural foraminal stenosis. There is mild central canal stenosis. IMPRESSION: 1. Moderate lumbar spondylosis. Reviewed, dictated and finalized at location B.
== END ==
PROVIDERS: PCP Family Medicine; Visit Provider Family Medicine
DX: M47.817 Spondylosis without myelopathy or radiculopathy, lumbosacral region (principal); M48.07 Spinal stenosis, lumbosacral region; G89.29 Other chronic pain
CPT/HCPCS: 72148

== ENCOUNTER 2022-07-27 19:40 | Emergency (ER) | payer MEDICARE, OTHER, SELFPAY ==
--- NOTE | ~2022-07-27 | XR_ITS ---
EXAMINATION: XR knee LT 3V DATE: 07/27/2022 20:49 INDICATION: Left knee pain, initial encounter TECHNIQUE: Three views of the left knee were obtained. COMPARISON: None. FINDINGS: There are changes of total knee arthroplasty. There is a transverse, comminuted fractures o f the distal femoral shaft just above the arthroplasty. There is varus angulation at the fracture sit e the distal fracture fragment is laterally displaced approximately 10 mm. IMPRESSION: 1. Comminuted and displaced transverse fracture of the distal femur. Reviewed, dictated and finalized at location F. F TENDER
--- NOTE | ~2022-07-27 | XR_ITS ---
EXAMINATION: XR hip LT 2V w AP pelvis INDICATION: Left hip pain after fall TECHNIQUE: AP view the pelvis and two views of the left hip are obtained. COMPARISON: 08/01/2020 FINDINGS: Bone alignment is normal. There is no fracture. There is mild osteoarthritis of the hips. IMPRESSION: 1. No acute osseous abnormality. Reviewed, dictated and finalized at location F. ALL OPERATOR
[2022-07-27 19:35] VITALS: BP 160/87; PULSE 96; RESP 22; TEMP 36.6; O2SAT 100
--- NOTE | 2022-07-27 19:55 | ED.LOWEXIN ---
HPI - Extremity Injury (Lower) General Chief Complaint: Extremity Injury, Lower Stated Complaint: FALL, KNEE INJURY Time Seen by Provider: 07/27/22 19:43 History of Present Illness HPI Narrative: 67-year-old female here for evaluation of left knee pain after a fall earlier today. Patient states that she was carrying several boxes going down steps when she lost her footing, causing her to land directly on the left knee. Patient was unable to get up off the ground by herself and required EMS assistance. Since then she is complaining of left knee and left hip pain. Patient states she was in her usual state of health prior to the fall and denied preceding dizziness no nausea or emesis, fevers, chest pain or shortness of breath. Has not taken any medicine for her pain. Has a history of knee replacement. Sees Dr. Riley, orthpedist at [facility]. Related Data Home Medications Medication Instructions Recorded Confirmed blood sugar diagnostic #10 ea 07/25/19 07/12/22 blood-glucose meter #1 ea 07/25/19 07/12/22 ferrous sulfate 325 mg (65 mg 325 mg PO DAILY 07/25/19 07/12/22 iron) tablet lancets 33 gauge (BD Ultra Fine #100 ea 07/25/19 07/12/22 Lancets) multivitamin 1 tablet PO DAILY 07/25/19 07/12/22 magnesium 30 mg tablet 30 mg PO DAILY 03/02/21 07/12/22 arginine HCl (L-arginine) 1,000 mg 1,000 mg PO BID 09/26/21 07/12/22 tablet nitroglycerin 0.2 mg/hr 1 patch transdermal DAILY 09/26/21 07/12/22 transdermal 24 hour patch sacubitril 49 mg-valsartan 51 mg 1 tablet PO BID 09/26/21 07/12/22 tablet (Entresto) sertraline 50 mg tablet 100 mg PO DAILY 09/26/21 07/12/22 metoprolol tartrate 25 mg tablet 12.5 mg PO BID 02/22/22 07/12/22 trazodone 50 mg tablet 100 mg PO QHS PRN Insomnia 02/22/22 07/12/22 vibegron 75 mg tablet (Gemtesa) 75 mg PO DAILY 04/20/22 07/12/22 Allergies Allergy/AdvReac Type Severity Reaction Status Date / Time lisinopril AdvReac Intermediate Cough Verified 07/27/22 19:52 NSAIDS (Non-Steroidal AdvReac Kidney Verified 07/27/22 19:52 Anti-Inflamma damage Review of Systems Review of Systems: Gen: Denies fevers or chills Eyes: Denies eye pain or visual change ENT: Denies congestion Respiratory: Denies shortness of breath or cough CV: Denies chest pain or palpitations GI: Denies abdominal pain nausea, emesis or diarrhea : denies burning, urgency, frequency or hematuria Musculoskeletal: Reports right knee pain and hip pain. Neuro: Denies numbness, tingling, weakness or focal weakness Skin: Denies rash Except as documented, all other systems reviewed and negative FOR[facility]LY [facility] Past Medical History Medical History Anxiety Asthma B12 deficiency CAD (coronary artery disease) Cholecystectomy planned Depression Diabetes mellitus Fibromyalgia GERD (gastroesophageal reflux disease) Hypercholesterolemia Hypertension Hypokalemia Insomnia Left ventricular hypertrophy Obesity JENNIFER (obstructive sleep apnea) RLS (restless legs syndrome) Syncope Systolic heart failure ef 45% Surgical History Surgical History H/O abdominal hysterectomy H/O section H/O elbow surgery right Nerve release H/O gastric bypass H/O knee surgery History of hand surgery left hand 10/2019 Family History Family History Sibling Diabetes mellitus Mother Hypertension Father Family history of cardiovascular disease Heart disease Social History Social History Smoking status: Never smoker Alcohol intake: never Alcohol use details: very rarely Substance use: current Substance use type: marijuana Other substance usage details: medical marijuana as needed Gender identity (if verbalized by the patient): Female Spiritual care concerns: No Exam Narrative: APPEARAN
--- NOTE | 2022-07-27 19:58 | ECG_ITS ---
Measurements Intervals [place] Rate: 89 P: 23 NM: 157 QRS: -55 QRSD: 105 T: 65 QT: 383 QTc: 467 Interpretive Statements SINUS RHYTHM ATRIAL PREMATURE COMPLEXES LEFT ANTERIOR FASCICULAR BLOCK BORDERLINE ST-T WAVE ABNORMALITY- HIGH LATERAL LEADS BASELINE ARTIFACT- I, II, III, AVR, AVL, AVF, V1 ABNORMAL ECG COMPARED TO ECG 04/27/2019 22:58:12 SINUS RHYTHM NOW PRESENT LEFT ANTERIOR FASCICULAR BLOCK NOW PRESENT Electronically Signed On 07-27-2022 20:48:32 [employer]ATOR [employer] by Michael Garza D.O.
--- NOTE | 2022-07-27 19:59 | PC.NURSE ---
Patient began complaining of chest heaviness . EKG order placed. Provider aware
[2022-07-27] MEDS: fentaNYL CITRATE INJ (*CRX) 100 MCG/2 ML VIAL 50 MCG IV PUSH (20:08)
[2022-07-27 20:10] VITALS: BP 155/105; PULSE 86; RESP 12; O2SAT 100
[2022-07-27 20:48] LABS: Basophils Absolute Auto 0.1 K/mm3 (0.0-0.1); Eosinophils Absolute Auto 0.2 K/mm3 (0-0.3); Eosinophils Percent Auto 2.4 % (0-4.4); Hematocrit 41.2 % (37.0-47.0); Hemoglobin 13.6 g/dL (12.0-15.0); Immature Granulocyte Absolute 0.03 K/mm3 (0.00-0.031); Immature Granulocyte Percent A 0.5 % (0-0.5); Lymphocytes Absolute Auto 1.25 K/mm3 (0.9-3.2); Lymphocytes Percent Auto 20.3 % (18.3-44.2); Mean Corpuscular Hemoglobin 29.6 pg (26-34); Mean Corpuscular Volume 89.6 fl (80-100); Mean Platelet Volume 10.2 fl (7.4-10.4); Monocytes Absolute Auto 0.4 K/mm3 (0.1-0.6); Monocytes Percent Auto 6.2 % (2.6-8.5); Neutrophils Absolute Auto 4.3 K/mm3 (1.3-6.7); Neutrophils Percent Auto 69.6 % (45.5-73.1); Platelet Count Result 201 k/mm3 (150-375); Red Cell Distribution Width 12.7 % (11.5-14.5); White Blood Count 6.2 K/mm3 (4.5-10.0)
[2022-07-27] MEDS: fentaNYL CITRATE INJ (*CRX) 100 MCG/2 ML VIAL 25 MCG IV PUSH (20:57)
[2022-07-27 21:03] LABS: Alanine Aminotransferase 20 U/L (6-35); Alkaline Phosphatase 149 U/L (38-126); Anion Gap 12 mmol/L (8-16); Aspartate Amino Transferase 30 U/L (14-36); Bilirubin,Total 0.5 mg/dL (0.2-1.3); Blood Urea Nitrogen 20 mg/dL (7-17); Calcium 9.8 mg/dL (8.4-10.2); Carbon Dioxide 24 mmol/L (22-30); Chloride 103 mmol/L (98-107); Estimated CRCL calculation 57 ml/min; Estimated Glomerular Filt Rate > 60; Glucose 106 mg/dL (65-110); Potassium 3.8 mmol/L (3.4-5.0); Sodium 139 mmol/L (137-145)
[2022-07-27 21:15] LABS: Troponin I < 0.012 ng/mL (0.000-0.034)
[2022-07-27] MEDS: MORPHINE SULFATE (*CRX) 2 MG/ML INJ IV PUSH ×2 (22:11→23:56)
[2022-07-28 00:16] VITALS: BP 114/68; PULSE 94; RESP 15; O2SAT 97
[2022-07-28] MEDS: ONDANSETRON INJ 4 MG/2 ML VIAL IV PUSH (00:53)
[2022-07-28] MEDS: MORPHINE SULFATE (*CRX) 2 MG/ML INJ IV PUSH (00:53)
--- NOTE | 2022-07-28 02:25 | PC.NURSE ---
update called to tan CHANDLER
== END 2022-07-28 02:34 | disposition short-term general hospital (02) ==
PROVIDERS: Physician Assistant; Emergency Provider Emergency Medicine; PCP Family Medicine
DX: S72.402A Unspecified fracture of lower end of left femur, initial encounter for closed fracture (principal); M97.12XA Periprosthetic fracture around internal prosthetic left knee joint, initial encounter; R94.31 Abnormal electrocardiogram [ECG] [EKG]; F41.9 Anxiety disorder, unspecified; J45.909 Unspecified asthma, uncomplicated; I25.10 Atherosclerotic heart disease of native coronary artery without angina pectoris; F32.9 Major depressive disorder, single episode, unspecified; E11.9 Type 2 diabetes mellitus without complications; K21.9 Gastro-esophageal reflux disease without esophagitis; I11.0 Hypertensive heart disease with heart failure; I50.9 Heart failure, unspecified; W10.9XXA Fall (on) (from) unspecified stairs and steps, initial encounter
CPT/HCPCS: 36415; 73502; 73562; 80053; 84484; 85025; 93005; 96374; 96375; 96376; 99285; J2270; J2405; J3010

== ENCOUNTER → 2022-11-15 13:37 | Outpatient (CLI) | payer MEDICARE, OTHER, SELFPAY ==
--- NOTE | ~2022-11-15 | US_ITS ---
Renal-Bladder ultrasound Clinical History: Renal stones Technique: Real-time sonographic imaging of the kidneys and urinary bladder was performed. Findings: The right kidney measures 9.9 cm in length and the left kidney measures 9.9 cm. There is no hydronephrosis or renal calculus identified. Renal cortical echogenicity is within normal limits. No renal mass lesion is identified. The urinary bladder is not clearly visualized. Impression: Unremarkable ultrasound of the kidneys. Urinary bladder not adequately visualized to assess. Reviewed, dictated and finalized at location . [employer] P[employer] SE[employer]ER Impression: Unremarkable ultrasound of the kidneys. Urinary bladder not adequately visualized to assess.
== END ==
PROVIDERS: PCP Family Medicine; Visit Provider Urology
DX: Z87.442 Personal history of urinary calculi (principal)
CPT/HCPCS: 76770

== ENCOUNTER 2023-04-10 17:58 | Inpatient (IN) | payer MEDICARE, OTHER, SELFPAY ==
[2023-04-10] VITALS (9 sets, daily range): BP systolic 120–151; BP diastolic 71–95; PULSE 86–119; RESP 11–25; TEMP 36.3–36.9; O2SAT 98–100; BMI 35.8
--- NOTE | ~2023-04-10 | MR_ITS ---
EXAMINATION: MR MRCP wo/w con/w 3D wo ind DATE: 04/11/2023 13:22 INDICATION: Pancreatitis. TECHNIQUE: Magnetic resonance imaging (MRI) of the abdomen was performed without and with 18 mL Multi Nick intravenous contrast. Sequences included coronal T2-weighted FS FSE, coronal T2-weighted FSE, a xial T1-weighted LAVA, coronal FS FIESTA, axial dual-echo T1-weighted SPGR, coronal lava-FLEX, sagitt al T2-weighted FSE, axial T2-weighted FSE, and axial DWI. Thick-slab T2-weighted FSE images were obta ined for magnetic resonance cholangiopancreatography (MRCP). Maximum intensity projection 3-D reconst ructions of the volumetric data were created by the technologist. Postcontrast sequences included cor onal LAVA-flex and time course of axial T1-weighted LAVA. COMPARISON: CT abdomen and pelvis 04/10/2023 FINDINGS: ABDOMEN MRI: The liver is normal. There are changes of cholecystectomy. The spleen, pancreas, and adr enal glands are normal. There are cysts in the kidneys measuring up to 2.2 cm on the right. There is fat stranding inferior to the liver. There are no dilated loops of bowel. There are changes of gastri c bypass procedure. There are no pathologically enlarged lymph nodes. There is no ascites. ABDOMEN MRCP: The common duct is normal and measures 10 mm. No choledocholithiasis. IMPRESSION: 1. Fat stranding inferior to the liver, consistent with inflammation versus edema. 2. No choledocholithiasis. Reviewed, dictated and finalized at location B. IMPRESSION: 1. Fat stranding inferior to the liver, consistent with inflammation versus velvet ma. 2. No choledocholithiasis.
--- NOTE | ~2023-04-10 | CT_ITS ---
Clinical Indication: Chest pain CT Scan of the Chest with Contrast: Technique: Contiguous sections were acquired throughout the chest after intravenous administration of 100 cc of Omnipaque 350. Dose reduction technique was used on this scan by utilizing automated expos ure control and iterative reconstruction technique. The dose-length product (DLP) was 616.30 mGy-cm. Findings: There is no evidence of any significant mediastinal, hilar or axillary lymphadenopathy. There is no f illing defect in the pulmonary arterial tree to suggest pulmonary embolus. There is no evidence of ao rtic dissection or aneurysm. There is no evidence of pleural or pericardial effusion. The lungs are clear. No pulmonary nodules or infiltrates are noted. Images through the upper abdomen reveal evidence of prior bariatric surgery. There is DISH of the tho racic spine. Impression: No evidence of pulmonary embolus, aortic dissection, or aortic aneurysm. Clear lungs. Reviewed, dictated and finalized at [facility]. Impression: No evidence of pulmonary embolus, aortic dissection, or aortic aneurysm. Clear lungs.
--- NOTE | ~2023-04-10 | CT_ITS ---
EXAMINATION: CT abdomen pelvis w con DATE: 04/10/2023 19:16 INDICATION: obstruction TECHNIQUE: Computed tomography (CT) of the abdomen and pelvis was performed with 100 mL Omnipaque-350 intravenous contrast. Automated exposure control and iterative reconstruction technique were employe d. The dose-length product was 1184.99 mGy-cm. COMPARISON: 03/24/2014. FINDINGS: Lower thorax: Aortic valve and coronary artery calcification. Bilateral dependent scar/atelectasis. Liver: No mass. Ill-defined stranding/fluid along the anterior liver surface as well as very small vo lume perihepatic fluid. Biliary/Gallbladder: Gallbladder is absent. Mild intra and extrahepatic bile duct dilation, likely se condary to cholecystectomy. Pancreas: No mass or duct dilation. Spleen: Normal. Adrenals:No mass. Kidneys: Moderate left atrophy. Nonobstructing 5 mm left lower pole calcification. Left upper pole cy st and multiple hypodensities are too small to characterize but most likely represent cysts. Exophyti c right midpole cyst. GI tract: Moderate hiatal hernia. Gastric bypass surgery. Similar mild dilation of the small bowel an astomosis without proximal obstruction. Mild distal esophageal and gastric wall edema. No small or la rge bowel dilation. Normal appendix. Diverticulosis without diverticulitis. Mesentery/Peritoneum: No ascites, mass, or free air. Retroperitoneum: No mass. Atherosclerotic abdominal aortic and/or arterial calcifications. Pelvis: Mild bladder wall thickening in a partially distended urinary bladder. Uterus is surgically a bsent. Soft Tissues: Soft tissues and body wall unremarkable. Bones: No acute osseous finding. Partially visualized uncomplicated appearing left femoral hardware. IMPRESSION: Mild esophagitis/gastritis. Small volume perihepatic fluid and inflammatory stranding, both nonspecific findings. Correlate for c linical findings of hepatitis or recent upper abdominal trauma. Cystitis versus incomplete urinary bladder distention. Reviewed, dictated and finalized at location K. IMPRESSION: Mild esophagitis/gastritis. Small volume perihepatic fluid and inflammatory stranding, both nonspecific fin dings. Correlate for clinical findings of hepatitis or recent upper abdominal t rauma. Cystitis versus incomplete urinary bladder distention.
[2023-04-10 18:53] LABS: Basophils Absolute Auto 0.1 K/mm3 (0.0-0.1); Basophils Percent Auto 0.6 % (0.2-1.2); Eosinophils Absolute Auto 0.2 K/mm3 (0-0.3); Eosinophils Percent Auto 2.9 % (0-4.4); Hematocrit 37.9 % (37.0-47.0); Hemoglobin 12.3 g/dL (12.0-15.0); Immature Granulocyte Absolute 0.03 K/mm3 (0.00-0.031); Immature Granulocyte Percent A 0.4 % (0-0.5); Lymphocytes Absolute Auto 1.05 K/mm3 (0.9-3.2); Lymphocytes Percent Auto 13.4 % (18.3-44.2); Mean Corpuscular HGB Conc 32.5 g/dl (32-36); Mean Corpuscular Hemoglobin 30.7 pg (26-34); Mean Corpuscular Volume 94.5 fl (80-100); Mean Platelet Volume 9.5 fl (7.4-10.4); Monocytes Absolute Auto 0.7 K/mm3 (0.1-0.6); Monocytes Percent Auto 8.9 % (2.6-8.5); Neutrophils Absolute Auto 5.8 K/mm3 (1.3-6.7); Neutrophils Percent Auto 73.8 % (45.5-73.1); Platelet Count Result 210 k/mm3 (150-375); Red Blood Count 4.01 M/mm3 (4.2-5.4); White Blood Count 7.8 K/mm3 (4.5-10.0)
[2023-04-10 19:00] LABS: Alanine Aminotransferase 22 U/L (6-35); Alkaline Phosphatase 136 U/L (38-126); Anion Gap 3 mmol/L (8-16); Aspartate Amino Transferase 30 U/L (14-36); Bilirubin,Total 0.3 mg/dL (0.2-1.3); Blood Urea Nitrogen 13 mg/dL (7-17); Calcium 8.6 mg/dL (8.4-10.2); Carbon Dioxide 28 mmol/L (22-30); Chloride 103 mmol/L (98-107); Estimated Glomerular Filt Rate > 60; Glucose 100 mg/dL (65-110); Potassium 3.8 mmol/L (3.4-5.0); Sodium 134 mmol/L (137-145)
[2023-04-10 19:12] LABS: Lipase 2241 U/L (23-300)
--- NOTE | 2023-04-10 19:40 | ED.GENADULT ---
HPI - General Adult General Chief complaint: Abdominal Pain Stated complaint: RLQ pain Time Seen by Provider: 04/10/23 18:04 History of Present Illness HPI narrative: Patient is a 67-year-old female who presents to the ER with abdominal pain. Right-sided. Ongoing for last 5 days. Reports she was doing physical therapy with [employer] and marching when she developed sudden pain in her right abdomen. No direct trauma to her abdomen. Reports over the last 3 days she has had worsening pain to the abdomen. She feels bloated. She is passing gas and has not been vomiting. She has had a gastric bypass in the past. She is also had a cholecystectomy. No fevers or chills or sweats. Pain is worse with lying back. No alleviating factors. Related Data Home Medications Medication Instructions Recorded Confirmed ferrous sulfate 325 mg (65 mg 325 mg PO DAILY 07/25/19 01/19/23 iron) tablet multivitamin 1 tablet PO DAILY 07/25/19 01/19/23 arginine HCl (L-arginine) 1,000 mg 1,000 mg PO BID 09/26/21 01/19/23 tablet sacubitril 49 mg-valsartan 51 mg 0.5 tablet PO BID 09/19/22 01/19/23 tablet (Entresto) cannabidiol 100 mg/mL oral solution PO 11/13/22 01/19/23 cholecalciferol (vitamin D3) 25 25 mcg PO DAILY 11/30/22 01/19/23 mcg (1,000 unit) capsule ropinirole 2 mg tablet 2 mg PO TID 01/19/23 01/19/23 sertraline 100 mg tablet 100 mg PO DAILY 01/19/23 01/19/23 budesonide 200 mcg/actuation See Rx Instructions inhalation BID 02/27/23 breath activated powder inhaler Allergies Allergy/AdvReac Type Severity Reaction Status Date / Time lisinopril AdvReac Intermediate Cough Verified 04/10/23 17:58 NSAIDS (Non-Steroidal AdvReac Kidney Verified 04/10/23 17:58 Anti-Inflamma damage Review of Systems Review of Systems: All systems reviewed & are unremarkable except as noted in HPI and below Constitutional: Constitutional: Denies chills, Denies fatigue and Denies fever(s) ENT: Denies nasal congestion and Denies sore throat Cardiovascular: Cardiovascular: Denies chest pain, Denies rapid heart rate and Denies radiating jaw, neck or arm pain Respiratory: Respiratory: Denies cough and Denies dyspnea Gastrointestinal: Gastrointestinal: Reports abdominal pain, Denies constipation, Denies diarrhea, Denies nausea and Denies vomiting Genitourinary: Genitourinary: Denies nocturia, Reports dysuria and Denies flank pain PMFSH Past Medical History Medical History (Updated 04/10/23 @ 20:34 by Sb Tadeo MD) Anxiety Asthma B12 deficiency CAD (coronary artery disease) Cholecystectomy planned Depression Diabetes mellitus Fibromyalgia GERD (gastroesophageal reflux disease) Hypercholesterolemia Hypertension Hypokalemia Insomnia Left ventricular hypertrophy Obesity JENNIFER (obstructive sleep apnea) RLS (restless legs syndrome) Syncope Systolic heart failure ef 45% Surgical History Surgical History (Updated 04/10/23 @ 20:22 by Sb Tadeo MD) H/O abdominal hysterectomy H/O section H/O elbow surgery right Nerve release H/O gastric bypass H/O knee surgery History of cholecystectomy History of hand surgery left hand 10/2019 Family History Family History Sibling Diabetes mellitus Mother Hypertension Father Family history of cardiovascular disease Heart disease Social History Social History Social History: Caffeine-none Smoking status: Never smoker Alcohol intake: current Alcohol use details: very rarely Substance use: current Substance use type: marijuana Other substance usage details: medical marijuana as needed Lack of Transportation: No Lack of Food: Never True Current Housing: I Have Housing Concerned About Future Housing: No Difficulty Paying Gas/Electric Bills: No Difficulty Paying for Meds: No Currently Unemployed: No Education: [employer]
[2023-04-10 20:05] LABS: Appearance Urine Cloudy (Clear); Bacteria Urine 1+ /hpf; Bilirubin Urine Negative (Negative); Blood Urine Negative (Negative); Color Urine Yellow (Yellow); Glucose Urine UA Negative (Negative); Ketones Urine Negative (Negative); Leukocyte Esterase Ur 2+ LEU/UL (Negative); Need Manual Microscopic Reviewed; Nitrate Urine Negative (Negative); Non Pathogenic Casts 0-2; Protein Urine Negative (Negative); Specific Grav Ur 1.016 (1.001-1.035); Squamous Epithelial Cell Urine None seen /hpf (Few); pH Urine 6.5 (5.0-9.0)
[2023-04-10 20:13] LABS: Add Urine Microscopic? YES
[2023-04-10] MEDS: SODIUM CHLORIDE 0.9% IV 1,000 ML 999 ML IV CONT (20:24)
[2023-04-10] MEDS: MORPHINE SULFATE (*CRX) 4 MG/ML INJ IV PUSH (20:25)
[2023-04-10] MEDS: PANTOPRAZOLE SODIUM IV 40 MG VIAL IV PUSH (20:46)
--- NOTE | 2023-04-10 20:48 | PM.IMHP ---
H&P: HPI History of Present Illness Date/Time: 04/10/23 20:48 Chief Complaint: Abdominal pain and bloating Narrative: 67-year-old female with a past medical history of nonischemic cardiomyopathy EF of 45%, type 2 diabetes mellitus, hyperlipidemia hypertension, obstructive sleep apnea, gastric bypass surgery and cholecystectomy who presented to the ER with abdominal pain and bloating. She reports that her pain started afternoon following her physical therapy. She was working on some core strengthening. Initially she thought the pain was due to the exercises that she had performed. However today her abdominal pain that was mostly in the right upper quadrant when from a dull achy and relatively mild to type pain to more severe and sharp and stabbing pain. She reports that her pain is currently a 6 or 7/10 despite receiving morphine approximately 1.5 hours ago. She denies any associated nausea or vomiting. Her pain is not worse after eating. She does report some pleuritic chest pain. She has also had some accompanying shortness of breath. She reports that she did have a history of asthma when she was young. She has not had issues with it in many years until about 6 months ago. In that time she has started developing some intermittent wheezing. However over the last couple of days she has had increased cough. Her cough is nonproductive. She denies any so she did fevers or chills. She does report that her abdominal pain is pleuritic in nature and worse with deep breathing. She was noted to be mildly tachycardic in the ER. She does admit that she did not take her evening dose of Coreg. She thought initially that her symptoms could be due to her recent change in her heart medications she has been on Entresto for a couple of years. Her med Toprol was recently changed to Coreg. She was put beyond 6.25 mg for 2 weeks and then transition up to 12.5 mg in the next day or 2. She denies any current palpitations. She does have history of nonsustained V-tach noted on sleep study December 2020. She had an outpatient echocardiogram yesterday which demonstrated improved ejection fraction from 45% up to 51% she denies any palpitations. Her UA in the ER was suspicious for possible UTI. She does report having chronic urge incontinence. She reports she recently had Botox in her bladder which initially was helping. But has had increased urge frequency and intensity over the last couple of days. She denies any dysuria. She denies any fevers or chills. She denies any associated nausea or vomiting. CT of the abdomen pelvis with contrast demonstrated mild esophagitis/gastritis small-bowel volume of perihepatic fluid and inflammatory stranding which are nonspecific findings. Correlate for hepatitis or recent upper abdominal trauma. Cystitis versus incomplete urinary bladder distention. The patient denies any trauma. She denies any GERD symptoms, reflux symptoms. She does report a distant history of a duodenal ulcer over 20 or 30 years ago. She only rarely drinks alcohol in small amounts and has not had any alcohol consumption recently. She had weight loss surgery in 2007. She lost over 100 lb but gained about 80 lb back. She reports that recently she started doing weight watchers and has subsequently lost 60-70 lb of her prior gain. She reports that when she broke her femur in July she had trouble eating and drinking. However, her appetite has returned to baseline. She reported that she recently gained about 10 lb because she has not been paying attention to her diet as much as she had been previously. Source of information is external medical records, patient report and family member report. The patient's case was discussed with her who is at bedside with the patient's permission. All questions were answered they were agreeable with plan. Review of Systems Review of Systems: 12 systems were reviewed with pertinent positives and negatives per HPI.
--- NOTE | 2023-04-10 21:22 | ADMGEN ---
This patient, La Heck, was admitted to [facility] Surg Room 306-01 at 2120. Patient/family oriented to hospital policies and general routines including ID bracelet, bed and alarms, visiting hours, pain management, procedures, bathroom and other care routines, personal items, smoking policy, room service/diet, and visiting hours. Information on how to activate the Rapid Response Team has been discussed. Patient/Family are encouraged to report perceived risks to care and to ask questions if they do not understand what they are told or what they should do.
--- NOTE | 2023-04-10 22:05 | ECG_ITS ---
Measurements Intervals [place] Rate: 94 P: -18 MI: 154 QRS: -44 QRSD: 90 T: 24 QT: 357 QTc: 448 Interpretive Statements SINUS RHYTHM WITH OCCASIONAL SUPRAVENTRICULAR PREMATURE COMPLEXES LEFT ANTERIOR SUPERIOR HEMIBLOCK POOR R-WAVE PROGRESSION ABNORMAL ECG ] COMPARED TO ECG 07/27/2022 20:01:01 THERE IS NO SIGNIFICANT CHANGE Electronically Signed On 04-11-2023 7:48:19 CDT by Davy Rock M.D.
[2023-04-10] MEDS: SODIUM CHLORIDE 0.9% IV 1,000 ML 150 ML IV CONT (22:51)
[2023-04-10] MEDS: KETOROLAC 15 MG/ML VIAL (*BKC) IV PUSH (22:51)
[2023-04-10] MEDS: carvediloL 6.25 MG TABLET PO (22:54)
[2023-04-10] MEDS: GABAPENTIN 300 MG CAPSULE PO (22:55)
[2023-04-10] MEDS: ATORVASTATIN 40 MG TABLET PO (22:55)
[2023-04-10] MEDS: rOPINIRole HCL 1 MG TABLET 2 MG PO (22:56)
[2023-04-10 23:26] LABS: D Dimer 2.02 ug/mL (<0.48)
[2023-04-11] VITALS (10 sets, daily range): BP systolic 103–147; BP diastolic 43–77; PULSE 69–85; RESP 16; TEMP 36.2–37.1; O2SAT 96–98
[2023-04-11] MEDS: MORPHINE SULFATE (*CRX) 4 MG/ML INJ IV PUSH (03:30)
[2023-04-11] MEDS: rOPINIRole HCL 1 MG TABLET 2 MG PO ×3 (05:10→21:28)
[2023-04-11] MEDS: KETOROLAC 15 MG/ML VIAL (*BKC) IV PUSH (05:11)
[2023-04-11] MEDS: SODIUM CHLORIDE 0.9% IV 1,000 ML 150 ML IV CONT ×3 (05:19→21:37)
[2023-04-11 06:30] LABS: Basophils Percent Auto 0.8 % (0.2-1.2); Eosinophils Absolute Auto 0.2 K/mm3 (0-0.3); Eosinophils Percent Auto 4.2 % (0-4.4); Hematocrit 33.3 % (37.0-47.0); Hemoglobin 10.6 g/dL (12.0-15.0); Immature Granulocyte Absolute 0.01 K/mm3 (0.00-0.031); Immature Granulocyte Percent A 0.2 % (0-0.5); Lymphocytes Absolute Auto 1.18 K/mm3 (0.9-3.2); Lymphocytes Percent Auto 23.5 % (18.3-44.2); Mean Corpuscular HGB Conc 31.8 g/dl (32-36); Mean Corpuscular Hemoglobin 30.6 pg (26-34); Mean Corpuscular Volume 96.2 fl (80-100); Mean Platelet Volume 9.6 fl (7.4-10.4); Monocytes Absolute Auto 0.5 K/mm3 (0.1-0.6); Monocytes Percent Auto 9.5 % (2.6-8.5); Neutrophils Absolute Auto 3.1 K/mm3 (1.3-6.7); Neutrophils Percent Auto 61.8 % (45.5-73.1); Platelet Count Result 170 k/mm3 (150-375); Red Blood Count 3.46 M/mm3 (4.2-5.4)
[2023-04-11 06:41] LABS: Alanine Aminotransferase 19 U/L (6-35); Albumin Level 3.3 g/dL (3.5-5.1); Alkaline Phosphatase 125 U/L (38-126); Anion Gap 2 mmol/L (8-16); Aspartate Amino Transferase 25 U/L (14-36); Bilirubin,Total 0.4 mg/dL (0.2-1.3); Blood Urea Nitrogen 10 mg/dL (7-17); Calcium 8.1 mg/dL (8.4-10.2); Carbon Dioxide 28 mmol/L (22-30); Chloride 104 mmol/L (98-107); Estimated CRCL calculation 60 ml/min; Estimated Glomerular Filt Rate > 60; Glucose 99 mg/dL (65-110); Lipase 185 U/L (23-300); Sodium 134 mmol/L (137-145)
[2023-04-11] MEDS: CYANOCOBALAMIN INJ 1,000 MCG/ML VIAL 1000 MCG IM (10:12)
[2023-04-11] MEDS: FERROUS SULFATE 325 MG TABLET DR PO (10:13)
[2023-04-11] MEDS: SACUBITRIL/VALSARTAN 24-26 MG TABLET 1 TAB PO (10:13)
[2023-04-11] MEDS: PANTOPRAZOLE SODIUM IV 40 MG VIAL IV PUSH (10:13)
[2023-04-11] MEDS: GABAPENTIN 300 MG CAPSULE PO ×3 (10:13→18:13)
[2023-04-11] MEDS: SERTRALINE HCL 50 MG TABLET 100 MG PO (10:14)
[2023-04-11] MEDS: FAMOTIDINE 20 MG/2 ML VIAL IV PUSH ×2 (10:14→21:33)
[2023-04-11] MEDS: MORPHINE SULFATE (*CRX) 2 MG/ML INJ IV PUSH (12:30)
--- NOTE | 2023-04-11 13:38 | PCCCNOTE ---
On 04/11/23, the student, [Tiffanie Aguilera ], provided care and completed [facility] on this patient. I have reviewed the student's documentation and agree with the findings.
--- NOTE | 2023-04-11 14:47 | PM.IMPN ---
Progress Note: A&P Assessment and Plan (1) Acute pancreatitis: Qualifiers: Acute pancreatitis complication: no infection or necrosis Pancreatitis type: unspecified pancreatitis type Qualified Code(s): K85.90 - Acute pancreatitis without necrosis or infection, unspecified Code(s): K85.90 - Acute pancreatitis without necrosis or infection, unspecified Status: Acute Assessment and Plan: The patient symptoms seem most consistent with acute pancreatitis With an elevated lipase of 2241.Possibly biliary in nature although LFTs are currently normal. LFTs within normal limits. CT abdomen pelvis revealing small volume perihepatic fluid and inflammatory stranding correlate clinical findings of hepatitis or recent upper abdominal trauma. MRCP showing fat stranding inferior to the liver consistent with inflammation versus edema. Trend lipase, now within normal limits. MRCP did not reveal evidence of choledocholithiasis. Advance diet as tolerated. Will place patient on GI prophylaxis with Pepcid b.i.d. given the patient does have evidence of esophagitis and possible gastritis in history of prior gastric bypass. Analgesics And antiemetics as needed. (2) Acute UTI: Code(s): N39.0 - Urinary tract infection, site not specified Status: Acute Assessment and Plan: Patient was started on antibiotic therapy for possible UTI. Ascending cholangitis is less likely given patient does not have elevated white count, fever or elevated transaminases. Patient started on Rocephin. Urine culture pending. Tailor antibiotic therapy to culture results. (3) Esophagitis: Code(s): K20.90 - Esophagitis, unspecified without bleeding Status: Acute Assessment and Plan: GI prophylaxis added. (4) Type 2 diabetes mellitus: Qualifiers: Diabetes mellitus buttermaker helper insulin use: without buttermaker helper use Diabetes mellitus complication status: without complication Qualified Code(s): E11.9 - Type 2 diabetes mellitus without complications Code(s): E11.9 - Type 2 diabetes mellitus without complications Status: Acute Assessment and Plan: Patient does have diet-controlled type 2 diabetes mellitus with an A1c of 5.7. She is currently euglycemic. Will add Accu-Cheks if patient develops hyperglycemia. Plan Patient is having mild tachycardia and pleuritic chest pain. Mildly elevated at 2. The patient's pleuritic chest pain is likely due to referred pain from her abdomen with ascites and likely pancreatitis with hepatitis less likely. CTA of the chest no evidence of pulmonary embolism. A specially in the setting of patient having shortness of breath and intermittent tachypnea. The patient's tachycardia is likely due to her not receiving her evening dose Coreg. Will restart the patient's Coreg. Will increase the patient's dose of Coreg up to 12.5 in the morning. Subjective Date/time seen: 04/11/23 14:47 Interval history: Patient continues to complain of right upper quadrant abdominal pain. She does feel better since arrival to the hospital but her symptoms have not completely resolved. She denies any nausea vomiting. Continue to treat for UTI. She does have a history of chronic UTIs was recently treated February for 1. She sees Urology as an outpatient and has received Botox for her bladder. Review of Systems Review of Systems: All systems reviewed & are unremarkable except as noted in HPI and below Exam Narrative: GENERAL: Comfortable, no acute distress HENMT: moist mucous membranes EYES: EOM intact b/l NECK: no lymphadenopathy RESPIRATORY: clear to auscultation CARDIO: RRR GI: soft, Right upper quadrant tenderness, bowel sounds present SKIN: no rashes EXTREMITIES: no edema, jaundice, redness or tenderness Objective Data Vital Signs Vital Signs: Vital Signs - 24 hr 04/10/23 17:59 04/10/23 18:09 04/10/23 18:32 Temperature 98.5 F P
[2023-04-11] MEDS: HYDROcodone/acetaminophen (*CRX) 5-325 MG TABLET 1 TAB PO ×2 (15:38→21:29)
[2023-04-11] MEDS: MELATONIN 5 MG TABLET PO (21:28)
[2023-04-11] MEDS: ATORVASTATIN 40 MG TABLET PO (21:28)
[2023-04-11] MEDS: FLUTICASONE PROP 44 MCG (*SP) 10.6 GM 2 PUFF INHALATION (23:49)
[2023-04-12] VITALS (16 sets, daily range): BP systolic 126–164; BP diastolic 60–98; PULSE 58–91; RESP 12–22; TEMP 36.2–36.6; O2SAT 97–100
[2023-04-12] MEDS: HYDROcodone/acetaminophen (*CRX) 5-325 MG TABLET 1 TAB PO ×2 (03:15→11:42)
[2023-04-12] MEDS: SODIUM CHLORIDE 0.9% IV 1,000 ML 150 ML IV CONT (04:56)
[2023-04-12] MEDS: rOPINIRole HCL 1 MG TABLET 2 MG PO ×3 (05:00→21:19)
[2023-04-12 06:51] LABS: Hematocrit 32.3 % (37.0-47.0); Hemoglobin 10.2 g/dL (12.0-15.0); Mean Corpuscular HGB Conc 31.6 g/dl (32-36); Mean Corpuscular Hemoglobin 30.4 pg (26-34); Mean Corpuscular Volume 96.4 fl (80-100); Mean Platelet Volume 9.6 fl (7.4-10.4); Platelet Count Result 171 k/mm3 (150-375); Red Blood Count 3.35 M/mm3 (4.2-5.4); White Blood Count 3.9 K/mm3 (4.5-10.0)
[2023-04-12 07:05] LABS: Alanine Aminotransferase 18 U/L (6-35); Albumin Level 3.3 g/dL (3.5-5.1); Alkaline Phosphatase 116 U/L (38-126); Anion Gap 4 mmol/L (8-16); Aspartate Amino Transferase 23 U/L (14-36); Bilirubin,Total 0.2 mg/dL (0.2-1.3); Blood Urea Nitrogen 10 mg/dL (7-17); Calcium 8.1 mg/dL (8.4-10.2); Carbon Dioxide 25 mmol/L (22-30); Chloride 109 mmol/L (98-107); Estimated CRCL calculation 67 ml/min; Estimated Glomerular Filt Rate > 60; Glucose 104 mg/dL (65-110); Potassium 3.8 mmol/L (3.4-5.0); Sodium 138 mmol/L (137-145)
[2023-04-12] MEDS: FAMOTIDINE 20 MG/2 ML VIAL IV PUSH ×2 (10:38→21:17)
[2023-04-12] MEDS: SERTRALINE HCL 50 MG TABLET 100 MG PO (10:38)
[2023-04-12] MEDS: FERROUS SULFATE 325 MG TABLET DR PO (10:38)
[2023-04-12] MEDS: PANTOPRAZOLE SODIUM IV 40 MG VIAL IV PUSH (10:38)
[2023-04-12] MEDS: SACUBITRIL/VALSARTAN 24-26 MG TABLET 1 TAB PO (10:38)
[2023-04-12] MEDS: GABAPENTIN 300 MG CAPSULE PO ×2 (10:38→17:39)
[2023-04-12] MEDS: ALBUTEROL SULFATE (*SP) AEROSOL 1 PUFF 2 PUFF INHALATION (10:47)
[2023-04-12] MEDS: DULoxetine HCL 60 MG CAPSULE.DR PO (11:45)
--- NOTE | 2023-04-12 11:50 | WPDGICN ---
Assessment and Plan Assessment and plan (1) Right upper quadrant abdominal pain: Code(s): R10.11 - Right upper quadrant pain Status: Acute Assessment and Plan: CT scan shows, among other things: Liver: No mass. Ill-defined stranding/fluid along the anterior liver surface as well as very small volume perihepatic fluid.? Biliary/Gallbladder: Gallbladder is absent. Mild intra and extrahepatic bile duct dilation, likely secondary to cholecystectomy. Pancreas: No mass or duct dilation. Spleen: Normal. Adrenals:No mass. Kidneys: Moderate left atrophy. Nonobstructing 5 mm left lower pole calcification. Left upper pole cyst and multiple hypodensities are too small to characterize but most likely represent cysts. Exophytic right midpole cyst. GI tract: Moderate hiatal hernia. Gastric bypass surgery. Similar mild dilation of the small bowel anastomosis without proximal obstruction. Mild distal esophageal and gastric wall edema. No small or large bowel dilation. Normal appendix. Diverticulosis without diverticulitis. Mesentery/Peritoneum: No ascites, mass, or free air. Retroperitoneum: No mass. Atherosclerotic abdominal aortic and/or arterial calcifications. (2) Acute pancreatitis: Qualifiers: Acute pancreatitis complication: no infection or necrosis Pancreatitis type: unspecified pancreatitis type Qualified Code(s): K85.90 - Acute pancreatitis without necrosis or infection, unspecified Code(s): K85.90 - Acute pancreatitis without necrosis or infection, unspecified Status: Acute Assessment and Plan: the pancreas was not inflamed on imaging studies. Etiology remains unknown. She had 1 recent medication change which may have played a factor. There is also slight possibility she has biliary sludge. If so, time will tell. (3) Esophagitis: Code(s): K20.90 - Esophagitis, unspecified without bleeding Status: Acute Assessment and Plan: Because of abnormality seen on CT scan will schedule her for EGD today. Scan showed esophageal and gastric edema. She Has had a previous gastric bypass. She is not on acid reducing medications. She does periodically get some heartburn. Plan It appears that her pancreatitis was transient. Imaging studies do not show any active inflammation or pseudocyst. Lipase has been normal since the very 1st day. Will do EGD and hopefully Be able to start advancing her diet. GI Consult Note Consult date/time: 04/12/23 11:50 HPI: La Heck is a 67 year old female admitted a couple days ago with pain in the right upper quadrant. Was constant and always worse with a deep breath or cough. She did have a CT angiogram which was negative for pulmonary embolism. She was found on imaging to have fluid in the perihepatic area. Initially his lipase was elevated has returned to normal. She has never had pancreatitis in the past. Her gallbladder is out. She does not drink alcohol. Her triglyceride level was normal. The only new medication is that she has been started on is .... her lipase on admission was greater than 2200. By yesterday was down to normal. Also her LFTs were normal except for very slight initial elevation of alkaline phosphatase. CT scan did not show any evidence of pancreatitis. MRCP is has been done and shows no evidence of choledocholithiasis. She has never had pancreatitis in the past. She does not drink alcohol. Review of Systems Review of Systems: All systems reviewed & are unremarkable except as noted in HPI and below PMFSH Past Medical History Medical History (Updated 04/12/23 @ 13:20 by Danny Fraser MD) Anxiety Asthma B12 deficiency CAD (coronary artery disease) Chronic back pain Depression Diabetes mellitus Currently diet controlled with A1c of 5.7% Fibromyalgia GERD (gastroesophageal reflux disease) Hypercholesterolemia Hypertension Hypokalemia Insomnia Left ventricular hypertrophy Nonischemic cardiomyopat
[2023-04-12] MEDS: LACTATED RINGERS 1,000 ML 150 ML IV CONT (12:55)
--- NOTE | 2023-04-12 13:06 | WPDANESEPPF ---
Anes - Initial Pre Proc Eval Procedure: Operation Date: 04/12/23 15:00 Proposed Procedures p Esophagogastroduodenoscopy - Danny Fraser MD Date/Time: 04/12/23 13:06 Surgeon: Azul Khan DO Pre Op Diagnosis: Pancreatitis Patient Data Age: 67 Gender: F Height: 1.63 m Weight: 94.6 kg Last Vital Signs Temp 97.2 F L 04/12/23 12:52 Pulse 87 04/12/23 12:52 Resp 18 04/12/23 12:52 BP 164/98 H 04/12/23 12:52 Pulse Ox 99 04/12/23 12:52 O2 Del Method Room Air 04/12/23 12:52 Allergies Allergy/AdvReac Type Severity Reaction Status Date / Time lisinopril AdvReac Intermediate Cough Verified 04/12/23 12:50 NSAIDS (Non-Steroidal AdvReac Kidney Verified 04/12/23 12:50 Anti-Inflamma damage Home Medications Medication Instructions Recorded Confirmed Type ferrous sulfate 325 mg (65 mg 325 mg PO DAILY 07/25/19 04/10/23 History iron) tablet arginine HCl (L-arginine) 1,000 mg 1,000 mg PO BID 09/26/21 04/10/23 History tablet cyanocobalamin (vitamin B-12) 1,000 mcg IM .i2colxn #25 mL 12/07/21 04/10/23 Rx 1,000 mcg/mL injection solution syringe with needle, safety 3 mL #50 ea 08/09/22 04/10/23 Rx 25 gauge x 1 (BD Integra Syringe) aspirin 81 mg chewable tablet 81 mg PO BID #30 tabs 08/12/22 04/10/23 Rx (Children's Aspirin) atorvastatin 40 mg tablet 40 mg PO QHS #90 tabs 09/08/22 04/10/23 Rx cannabidiol 100 mg/mL oral solution 100 mg PO BID PRN fibromyalgia 11/13/22 04/10/23 History gabapentin 300 mg capsule 300 mg PO TID #270 caps 11/20/22 04/10/23 Rx cholecalciferol (vitamin D3) 25 50,000 unit PO WEEKLY 11/30/22 04/10/23 History mcg (1,000 unit) capsule cyclobenzaprine 10 mg tablet 10 mg PO BID PRN Muscle Spasm #180 01/02/23 04/10/23 Rx tabs ropinirole 2 mg tablet 2 mg PO TID 01/19/23 04/10/23 History sertraline 100 mg tablet 100 mg PO DAILY 01/19/23 04/10/23 History eszopiclone 2 mg tablet (Lunesta) 2 mg PO QHS #30 tabs 02/09/23 04/10/23 Rx albuterol sulfate 90 mcg/actuation 2 puff inhalation Q4-6H PRN 02/22/23 04/10/23 Rx aerosol inhaler (Ventolin HFA) Shortness Of Breath #8.5 grams budesonide 200 mcg/actuation See Rx Instructions inhalation BID 02/27/23 04/10/23 History breath activated powder inhaler budesonide 200 mcg/actuation 200 mcg inhalation BID asthma 04/10/23 04/10/23 History breath activated powder inhaler nitroglycerin 0.1 mg/hr 0.1 mg transdermal DAILY 04/10/23 04/11/23 History transdermal 24 hour patch sacubitril 24 mg-valsartan 26 mg 1 tablet PO DAILY 04/10/23 04/10/23 History tablet (Entresto) duloxetine 60 mg capsule,delayed 60 mg PO DAILY 04/11/23 04/11/23 History release Laboratory Tests 04/12/23 06:37 WBC 3.9 L K/mm3 (4.5-10.0) RBC 3.35 L M/mm3 (4.2-5.4) Hgb 10.2 L g/dL (12.0-15.0) Hct 32.3 L % (37.0-47.0) MCV 96.4 fl (80-100) MCH 30.4 pg (26-34) MCHC 31.6 L g/dl (32-36) RDW 12.0 % (11.5-14.5) Plt Count 171 k/mm3 (150-375) MPV 9.6 fl (7.4-10.4) Sodium 138 mmol/L (137-145) Potassium 3.8 mmol/L (3.4-5.0) Chloride 109 H mmol/L (98-107) Carbon Dioxide 25 mmol/L (22-30) Anion Gap 4 L mmol/L (8-16) BUN 10 mg/dL (7-17) Creatinine 0.80 mg/dL (0.7-1.0) Estim Creat Clear Calc 67 ml/min Estimated GFR > 60 (59 - ) Glucose 104 mg/dL (65-110) Calcium 8.1 L mg/dL (8.4-10.2) Total Bilirubin 0.2 mg/dL (0.2-1.3) Direct Bilirubin 0.0 mg/dL (0-0.3) AST 23 U/L (14-36) ALT 18 U/L (6-35) Alkaline Phosphatase 116 U/L (38-126) Total Protein 6.0 L g/dL (6.3-8.2) Albumin 3.3 L g/dL (3.5-5.1) Patient hx anesthesia problems: none Family hx anesthesia problems: none Results Review: All pre-operative results and documents have been reviewed as part of the pre-operative evaluation. [facility] Past Medical History Medical History (Updated 04/10/23 @ 22:55 by Azul Khan
--- NOTE | 2023-04-12 16:12 | PM.IMPN ---
Progress Note: A&P Assessment and Plan (1) Acute pancreatitis: Qualifiers: Acute pancreatitis complication: no infection or necrosis Pancreatitis type: unspecified pancreatitis type Qualified Code(s): K85.90 - Acute pancreatitis without necrosis or infection, unspecified Code(s): K85.90 - Acute pancreatitis without necrosis or infection, unspecified Status: Acute Assessment and Plan: The patient symptoms seem most consistent with acute pancreatitis With an elevated lipase of 2241.Possibly biliary in nature although LFTs are currently normal. LFTs within normal limits. CT abdomen pelvis revealing small volume perihepatic fluid and inflammatory stranding correlate clinical findings of hepatitis or recent upper abdominal trauma. MRCP showing fat stranding inferior to the liver consistent with inflammation versus edema. Trend lipase, now within normal limits. MRCP did not reveal evidence of choledocholithiasis. GI consulted due to fat stranding around the liver. They have released patient from their service and okay to advance diet. Advance diet as tolerated. Will place patient on GI prophylaxis with Pepcid b.i.d. given the patient does have evidence of esophagitis and possible gastritis in history of prior gastric bypass. Analgesics And antiemetics as needed. (2) Acute UTI: Code(s): N39.0 - Urinary tract infection, site not specified Status: Acute Assessment and Plan: Patient was started on antibiotic therapy for possible UTI. Ascending cholangitis is less likely given patient does not have elevated white count, fever or elevated transaminases. Patient started on Rocephin. Urine culture no growth to date Tailor antibiotic therapy to culture results. (3) Esophagitis: Code(s): K20.90 - Esophagitis, unspecified without bleeding Status: Acute Assessment and Plan: GI prophylaxis added. (4) Type 2 diabetes mellitus: Qualifiers: Diabetes mellitus senior care insulin use: without senior care use Diabetes mellitus complication status: without complication Qualified Code(s): E11.9 - Type 2 diabetes mellitus without complications Code(s): E11.9 - Type 2 diabetes mellitus without complications Status: Acute Assessment and Plan: Patient does have diet-controlled type 2 diabetes mellitus with an A1c of 5.7. She is currently euglycemic. Will add Accu-Cheks if patient develops hyperglycemia. Subjective Date/time seen: 04/12/23 16:12 Interval history: Patient doing well today. She continues to have right upper quadrant abdominal pain. GI was consulted due to hepatic fat stranding and edema. GI released patient from their care and okay to advance diet. If patient tolerates this diet well she will likely be discharge tomorrow. She denies any nausea vomiting, body aches and chills, chest pain shortness a breath. Review of Systems Review of Systems: All systems reviewed & are unremarkable except as noted in HPI and below Exam Narrative: GENERAL: Comfortable, no acute distress HENMT: moist mucous membranes EYES: EOM intact b/l NECK: no lymphadenopathy RESPIRATORY: clear to auscultation CARDIO: RRR GI: soft, Nontender, bowel sounds present SKIN: no rashes EXTREMITIES: no edema, jaundice, redness or tenderness Objective Data Vital Signs Vital Signs: Vital Signs - 24 hr 04/11/23 20:00 04/11/23 21:06 04/11/23 20:00 Temperature 97.6 F Pulse Rate 76 82 Respiratory Rate 16 Blood Pressure 125/77 Pulse Oximetry 98 Oxygen Delivery Room Air 04/12/23 00:00 04/11/23 20:30 04/12/23 04:00 Temperature Pulse Rate 58 L 73 Respiratory Rate Blood Pressure Pulse Oximetry 98 Oxygen Delivery Room Air 04/12/23 05:38 04/12/23 08:24 04/12/23 08:24 Temperature 97.3 F L Pulse Rate 90 76 Respiratory Rate 16 20 Blood Pressure 144/72 H Pulse Oximetry 98 98 Oxygen Delive
[2023-04-12] MEDS: MELATONIN 5 MG TABLET PO (21:17)
[2023-04-12] MEDS: ATORVASTATIN 40 MG TABLET PO (21:18)
[2023-04-12] MEDS: CYCLOBENZAPRINE HCL 10 MG TABLET PO (21:18)
[2023-04-12] MEDS: KETOROLAC 15 MG/ML VIAL (*BKC) IV PUSH (21:19)
[2023-04-13] VITALS: PULSE 76
[2023-04-13 04:00] VITALS: PULSE 78
[2023-04-13 04:39] LABS: Basophils Percent Auto 0.6 % (0.2-1.2); Eosinophils Absolute Auto 0.2 K/mm3 (0-0.3); Eosinophils Percent Auto 4.3 % (0-4.4); Hematocrit 35.2 % (37.0-47.0); Hemoglobin 11.4 g/dL (12.0-15.0); Immature Granulocyte Absolute 0.02 K/mm3 (0.00-0.031); Immature Granulocyte Percent A 0.4 % (0-0.5); Lymphocytes Absolute Auto 1.05 K/mm3 (0.9-3.2); Lymphocytes Percent Auto 21.7 % (18.3-44.2); Mean Corpuscular HGB Conc 32.4 g/dl (32-36); Mean Corpuscular Volume 92.6 fl (80-100); Mean Platelet Volume 9.2 fl (7.4-10.4); Monocytes Absolute Auto 0.4 K/mm3 (0.1-0.6); Monocytes Percent Auto 7.5 % (2.6-8.5); Neutrophils Absolute Auto 3.2 K/mm3 (1.3-6.7); Neutrophils Percent Auto 65.5 % (45.5-73.1); Platelet Count Result 195 k/mm3 (150-375); Red Cell Distribution Width 11.9 % (11.5-14.5); White Blood Count 4.8 K/mm3 (4.5-10.0)
[2023-04-13 04:51] LABS: Alanine Aminotransferase 21 U/L (6-35); Albumin Level 3.7 g/dL (3.5-5.1); Alkaline Phosphatase 135 U/L (38-126); Anion Gap 5 mmol/L (8-16); Aspartate Amino Transferase 32 U/L (14-36); Bilirubin,Total 0.3 mg/dL (0.2-1.3); Blood Urea Nitrogen 12 mg/dL (7-17); Calcium 8.7 mg/dL (8.4-10.2); Carbon Dioxide 28 mmol/L (22-30); Chloride 104 mmol/L (98-107); Estimated CRCL calculation 60 ml/min; Estimated Glomerular Filt Rate > 60; Glucose 91 mg/dL (65-110); Potassium 3.8 mmol/L (3.4-5.0); Sodium 137 mmol/L (137-145)
[2023-04-13 05:26] LABS: Vancomycin Trough < 5.0 ug/mL (10.0-20.0)
[2023-04-13] MEDS: rOPINIRole HCL 1 MG TABLET 2 MG PO (05:59)
[2023-04-13 06:24] VITALS: BP 157/91; PULSE 90; RESP 16; TEMP 36.6; O2SAT 98
[2023-04-13] MEDS: SERTRALINE HCL 50 MG TABLET 100 MG PO (08:49)
[2023-04-13] MEDS: PANTOPRAZOLE SODIUM IV 40 MG VIAL IV PUSH (08:49)
[2023-04-13] MEDS: FAMOTIDINE 20 MG/2 ML VIAL IV PUSH (08:49)
[2023-04-13 08:50] VITALS: PULSE 81
[2023-04-13] MEDS: GABAPENTIN 300 MG CAPSULE PO ×2 (08:50→12:20)
[2023-04-13] MEDS: SACUBITRIL/VALSARTAN 24-26 MG TABLET 1 TAB PO (08:50)
[2023-04-13] MEDS: DULoxetine HCL 60 MG CAPSULE.DR PO (08:50)
[2023-04-13] MEDS: FERROUS SULFATE 325 MG TABLET DR PO (08:50)
[2023-04-13] MEDS: ACETAMINOPHEN 325 MG TABLET PO (09:00)
[2023-04-13] MEDS: polyethylene glycoL 3350 17 GM POWD.PACK PO (09:01)
[2023-04-13 12:00] VITALS: PULSE 105
--- NOTE | 2023-04-13 13:14 | PM.DS ---
DS: Admitting Diagnosis Discharge Date 04/13/23 Admitting Diagnosis pancreatitis DS: Discharge Diagnosis Discharge Diagnosis (1) Acute pancreatitis: Qualifiers: Acute pancreatitis complication: no infection or necrosis Pancreatitis type: unspecified pancreatitis type Qualified Code(s): K85.90 - Acute pancreatitis without necrosis or infection, unspecified Code(s): K85.90 - Acute pancreatitis without necrosis or infection, unspecified Status: Acute Assessment and Plan: The patient symptoms seem most consistent with acute pancreatitis With an elevated lipase of 2241.Possibly biliary in nature although LFTs are currently normal. LFTs within normal limits. CT abdomen pelvis revealing small volume perihepatic fluid and inflammatory stranding correlate clinical findings of hepatitis or recent upper abdominal trauma. MRCP showing fat stranding inferior to the liver consistent with inflammation versus edema. Trend lipase, now within normal limits. MRCP did not reveal evidence of choledocholithiasis. GI consulted due to fat stranding around the liver. They have released patient from their service and okay to advance diet. Advance diet as tolerated. Will place patient on GI prophylaxis with Pepcid b.i.d. given the patient does have evidence of esophagitis and possible gastritis in history of prior gastric bypass. Analgesics And antiemetics as needed. (2) Acute UTI: Code(s): N39.0 - Urinary tract infection, site not specified Status: Acute Assessment and Plan: Patient was started on antibiotic therapy for possible UTI. Ascending cholangitis is less likely given patient does not have elevated white count, fever or elevated transaminases. Patient started on Rocephin. Urine culture no growth to date Tailor antibiotic therapy to culture results. (3) Esophagitis: Code(s): K20.90 - Esophagitis, unspecified without bleeding Status: Acute Assessment and Plan: GI prophylaxis added. (4) Type 2 diabetes mellitus: Qualifiers: Diabetes mellitus intermediate insulin use: without vermin exterminator use Diabetes mellitus complication status: without complication Qualified Code(s): E11.9 - Type 2 diabetes mellitus without complications Code(s): E11.9 - Type 2 diabetes mellitus without complications Status: Acute Assessment and Plan: Patient does have diet-controlled type 2 diabetes mellitus with an A1c of 5.7. She is currently euglycemic. Will add Accu-Cheks if patient develops hyperglycemia. DS: Summary Hospital Course Hospital Course: this is a 67-year-old female with a past medical history nonischemic cardiomyopathy, diabetes, hyperlipidemia, hypertension, JENNIFER, gastric bypass surgery and cholecystectomy presented to the ER with abdominal pain and bloating. CT abdomen pelvis with contrast demonstrated esophagitis cell-gastritis small volume of perihepatic fluid and inflammatory stranding. LFTs were within normal range. Hepatitis panel room which was negative. She was also found to have an elevated lipase and was started on IV fluids. UA in the ER suspicious for possible UTI . Patient was started on Rocephin and vancomycin for coverage of possible ascending cholangitis. MRCP ordered. She was tachycardic on presentation and D-dimer was slightly elevated. CTA of the chest was ordered and pulmonary embolism was ruled out. MRCP did not reveal any evidence of choledocholithiasis / cholecystitis and vancomycin was discontinued. MRCP did show fat stranding inferior to the liver consistent with inflammation versus edema. GI consulted. GI okayed patient to start advancing diet. Patient did well with her diet. Patient's lipase returned to normal after IV fluids were given. Her LFTs remained within normal limits. Will not continue antibiotics at discharge due to patient receiving 3 days of Rocephin which is sufficient for non complicated UTI. Pat
--- NOTE | 2023-04-13 13:20 | WPDGIPROGNO ---
Progress Note: A&P Assessment and Plan (1) Right upper quadrant abdominal pain: Code(s): R10.11 - Right upper quadrant pain Status: Acute Assessment and Plan: CT scan shows, among other things: Liver: No mass. Ill-defined stranding/fluid along the anterior liver surface as well as very small volume perihepatic fluid.? Biliary/Gallbladder: Gallbladder is absent. Mild intra and extrahepatic bile duct dilation, likely secondary to cholecystectomy. Pancreas: No mass or duct dilation. Spleen: Normal. Adrenals:No mass. Kidneys: Moderate left atrophy. Nonobstructing 5 mm left lower pole calcification. Left upper pole cyst and multiple hypodensities are too small to characterize but most likely represent cysts. Exophytic right midpole cyst. GI tract: Moderate hiatal hernia. Gastric bypass surgery. Similar mild dilation of the small bowel anastomosis without proximal obstruction. Mild distal esophageal and gastric wall edema. No small or large bowel dilation. Normal appendix. Diverticulosis without diverticulitis. Mesentery/Peritoneum: No ascites, mass, or free air. Retroperitoneum: No mass. Atherosclerotic abdominal aortic and/or arterial calcifications. (2) Acute pancreatitis: Qualifiers: Acute pancreatitis complication: no infection or necrosis Pancreatitis type: unspecified pancreatitis type Qualified Code(s): K85.90 - Acute pancreatitis without necrosis or infection, unspecified Code(s): K85.90 - Acute pancreatitis without necrosis or infection, unspecified Status: Acute Assessment and Plan: the pancreas was not inflamed on imaging studies. Etiology remains unknown. She had 1 recent medication change which may have played a factor. There is also slight possibility she has biliary sludge. If so, time will tell. 04/13/2023 lipase returned to normal quickly. She is tolerating her diet. From my perspective she can be discharged (3) Esophagitis: Code(s): K20.90 - Esophagitis, unspecified without bleeding Status: Acute Assessment and Plan: Because of abnormality seen on CT scan will schedule her for EGD today. Scan showed esophageal and gastric edema. She Has had a previous gastric bypass. She is not on acid reducing medications. She does periodically get some heartburn. 04/13/2023 she did not have any significant esophagitis but has a weak lower esophageal sphincter. Plan It appears that her pancreatitis was transient. Imaging studies do not show any active inflammation or pseudocyst. Lipase has been normal since the very 1st day. From my perspective can be discharged today Subjective Date/time seen: 04/13/23 13:20 She has no complaints today. She is tolerating her diet. Denies nausea or vomiting. She has a slight residual discomfort in the right upper quadrant but not localized. She is hopeful of going home today. I told her that she should try to stay on a low-fat diet for couple weeks. I told her there is no guarantee that she will get pancreatitis again but certainly to let us know if she has any recurrence of the symptoms that she had. Exam Const: General: alert Orientation/consciousness: patient oriented x3 HENMT: Head: normal to inspection Ears: hearing grossly normal bilaterally Mouth: Yes Normal oral and palatal mucosa present Eyes: General: appearance normal, both eyes and all related structures Neck: Neck: normal visual inspection Chest: Chest palpation & inspection: normal inspection of the chest Resp: Effort & Inspection: normal respiratory effort Auscultation: clear to auscultation bilaterally Cardio: Rate: regular rate Rhythm: regular rhythm GI: Inspection: normal to inspection GI Palp: Yes Soft to palpation, No Guarding due to palpation present (GI) and No Ascites present Auscultation: normal bowel sounds Skin: General skin exam: normal color and no jaundice Neuro: General: patient oriented x3 Speech: normal speech Objective Data
[2023-04-13 14:00] VITALS: BP 150/92; PULSE 92; RESP 16; TEMP 35.8; O2SAT 97
== END 2023-04-13 14:37 | disposition home or self-care (01) | DRG 439 ==
LOC: ANHED 20:34 → ANH3MEDSUR 21:15
PROVIDERS: Internal Medicine Gastroenterology; Admitting Provider Internal Medicine; Emergency Provider Emergency Medicine; PCP Family Medicine; Visit Provider Internal Medicine Critical Care Medicine
PROC: 0DJ08ZZ Inspection of Upper Intestinal Tract, Via Natural or Artificial Opening Endoscopic (ICD-10-PCS; CPT 43235; principal; 2023-04-12 15:00)
DX: K85.90 Acute pancreatitis without necrosis or infection, unspecified (principal); I42.8 Other cardiomyopathies; I50.22 Chronic systolic (congestive) heart failure; N39.0 Urinary tract infection, site not specified; I11.0 Hypertensive heart disease with heart failure; K29.70 Gastritis, unspecified, without bleeding; K21.00 Gastro-esophageal reflux disease with esophagitis, without bleeding; Z98.84 Bariatric surgery status; G47.33 Obstructive sleep apnea (adult) (pediatric); E78.5 Hyperlipidemia, unspecified; F41.9 Anxiety disorder, unspecified; I25.10 Atherosclerotic heart disease of native coronary artery without angina pectoris; E11.9 Type 2 diabetes mellitus without complications; M79.7 Fibromyalgia; E87.6 Hypokalemia; E66.9 Obesity, unspecified; G25.81 Restless legs syndrome; Z90.49 Acquired absence of other specified parts of digestive tract; Z68.35 Body mass index [BMI] 35.0-35.9, adult; Z90.710 Acquired absence of both cervix and uterus; Z98.42 Cataract extraction status, left eye; Z98.41 Cataract extraction status, right eye; Z96.1 Presence of intraocular lens; Z96.653 Presence of artificial knee joint, bilateral
CPT/HCPCS: 36415; 71275; 74177; 74183; 76376; 80053; 80202; 81001; 81025; 82248; 83690; 85025; 85027; 85380; 87077; 87081; 87086; 87088; 93005; 94640; 96361; 96365; 96375; 96376; 99285; A9270; A9577; C9113; G0378; J0696; J1885; J2270; J2704; J3370; J3420; J7030; J7120; Q9967

== ENCOUNTER 2023-09-18 10:26 | Inpatient (IN) | payer MEDICARE, OTHER, SELFPAY ==
[2023-09-18] VITALS (22 sets, daily range): BP systolic 97–167; BP diastolic 44–109; PULSE 71–111; RESP 16–26; TEMP 36–38.8; O2SAT 88–99; BMI 37.0
--- NOTE | ~2023-09-18 | XR_ITS ---
EXAMINATION: XR abdomen/kub 1V DATE: 09/18/2023 13:09 INDICATION: Left flank pain. TECHNIQUE: A supine view of the abdomen on 2 radiographs was obtained. COMPARISON: CT abdomen and pelvis 09/18/2023 FINDINGS: There are no dilated loops of bowel. There is a 6 mm stone in proximal left ureter. There a re phleboliths in the pelvis. There is internal fixation of left femur. Surgical clips in the right u pper quadrant are likely from cholecystectomy. IMPRESSION: 1. 6 mm stone in proximal left ureter. Reviewed, dictated and finalized at location A.
--- NOTE | ~2023-09-18 | XR_ITS ---
EXAMINATION: XR stent kub - surgery DATE: 09/18/2023 14:30 INDUSTRIAL CAFETERIA MANAGER INDICATION: CYSTO, LEFT STENT . TECHNIQUE: 2 fluoroscopic images of the left abdomen and pelvis were obtained during cystography and stent placement performed by the surgeon. I was not present in the operating room. Fluoroscopy exposu re time was 9.9 seconds. Air Kerma 5.46 mGy. DAP [id number] mGym2. COMPARISON: CT abdomen pelvis 09/18/2023. FINDINGS: Hyperdensity projecting over the proximal left ureter likely the previously described stone. Post anibal nt deployment the proximal coil ejects over the renal pelvis, the distal coil projects over the urina ry bladder. IMPRESSION: Fluoroscopic documentation of cystography and stent placement. Please refer to the operative note for complete procedural details . Reviewed, dictated and finalized at location K. STRIAL CAFETERIA MANAGER
--- NOTE | ~2023-09-18 | CT_ITS ---
Non-contrast CT scan of the Abdomen and Pelvis Clinical indication: Flank pain Technique: 2.5 mm axial scans were obtained through the abdomen and pelvis without intravenous or or al contrast. Dose reduction technique was used on this scan by utilizing automated exposure control a nd iterative reconstruction technique. The dose-length product (DLP) was 677.05 mGy-cm. COMPARISON: 04/10/2023 Findings: Images through the lung bases reveal probable mild interstitial edema. There is a 6 mm proximal left ureteral stone with mild left hydronephrosis and prominent left perinep hric stranding. No right renal or right ureteral stone. No right hydronephrosis. The liver, spleen, pancreas, and adrenals appear normal. Cholecystectomy clips are present. There is no aortic aneurysm. There is no evidence of bowel obstruction. There is evidence of prior bariatric surgery. Images through the pelvis were performed. There is no evidence of ascites or lymphadenopathy. Urinary bladder unremarkable. No pelvic mass seen. No ascites. Impression: 6 mm proximal left ureteral stone with mild hydronephrosis. Prominent left perinephric collection is present, which can indicate underlying calyceal rupture. Reviewed, dictated and finalized at [facility]. O VISUAL PROJECT MANAGER Impression: 6 mm proximal left ureteral stone with mild hydronephrosis. Prominent left catrachita nephric collection is present, which can indicate underlying calyceal rupture.
--- NOTE | 2023-09-18 11:44 | ED.ABDPAIN ---
HPI - Abdominal Pain General Chief Complaint: Abdominal Pain Stated Complaint: lower abd Time Seen by Provider: 09/18/23 11:14 Source: patient Mode of arrival: ambulatory Limitations: no limitations History of Present Illness HPI narrative: Patient is a 68-year-old female who presents the ED with report of left-sided abdominal pain. Patient reports pain began this morning and has been constant since then. Pain present in her left lower abdomen, radiating around to her left lower back. Patient has not taken anything for pain. History of kidney stones, states pain feels similar. Denies nausea, vomiting, diarrhea, constipation, dysuria, hematuria. Patient does report she was treated for UTI several weeks ago. She also notes she receives Botox injections for urinary incontinence under Dr. Santiago and over the last week or so has had difficulty starting her urinary stream. Related Data Home Medications Medication Instructions Recorded Confirmed ferrous sulfate 325 mg (65 mg 325 mg PO DAILY 07/25/19 09/18/23 iron) tablet arginine HCl (L-arginine) 1,000 mg 1,000 mg PO BID 09/26/21 09/18/23 tablet cannabidiol 100 mg/mL oral solution 100 mg PO BID PRN fibromyalgia 11/13/22 09/18/23 cholecalciferol (vitamin D3) 25 50,000 unit PO WEEKLY 11/30/22 09/18/23 mcg (1,000 unit) capsule budesonide 200 mcg/actuation See Rx Instructions inhalation BID 02/27/23 09/18/23 breath activated powder inhaler budesonide 200 mcg/actuation 200 mcg inhalation BID asthma 04/10/23 09/18/23 breath activated powder inhaler nitroglycerin 0.1 mg/hr 0.1 mg transdermal DAILY 04/10/23 09/18/23 transdermal 24 hour patch sacubitril 24 mg-valsartan 26 mg 1 tablet PO DAILY 04/10/23 09/18/23 tablet (Entresto) Allergies Allergy/AdvReac Type Severity Reaction Status Date / Time lisinopril AdvReac Intermediate Cough Verified 09/18/23 14:11 NSAIDS (Non-Steroidal AdvReac Kidney Verified 09/18/23 14:11 Anti-Inflamma damage Review of Systems Review of Systems: CONSTITUTIONAL: Denies fever, chills, or sweats. GASTROINTESTINAL: See HPI. GENITOURINARY: Denies dysuria or hematuria. MUSCULOSKELETAL: See HPI. NEUROLOGIC: Denies headache, dizziness, numbness, or weakness. All systems reviewed & are unremarkable except as noted in HPI and below PMFSH Past Medical History Medical History Anxiety Asthma B12 deficiency CAD (coronary artery disease) Chronic back pain Depression Diabetes mellitus Currently diet controlled with A1c of 5.7% Fibromyalgia GERD (gastroesophageal reflux disease) Hypercholesterolemia Hypertension Hypokalemia Insomnia Left ventricular hypertrophy Nonischemic cardiomyopathy Cardiac catheterization 03/27/2021 with no evidence of coronary disease Cardiac MRI 2020 EF 45% Echocardiogram demonstrated LVH with grade 1 diastolic dysfunction last echo 2020 Obesity JENNIFER (obstructive sleep apnea) Not using CPAP since she is sleeping in recliner. Polysomnogram while sleeping in a recliner demonstrated index of 3.5 RLS (restless legs syndrome) Syncope Systolic heart failure ef 45% Surgical History Surgical History H/O abdominal hysterectomy (~1994) Due to dysfunctional uterine bleeding H/O section X2 H/O elbow surgery right Nerve release History of cholecystectomy (~1986) History of hand surgery left hand 10/2019 History of Lakisha-en-Y gastric bypass History of total bilateral knee replacement Left September 2015 right December 2015 S/P implantation of urinary electronic stimulator device (~2007) Bladder stimulator placed in 2003 with subsequent removal 2014 Status post cataract extraction of both eyes with insertion of intraocular lens Status post open reduction with internal fixation of fracture (07/2022) Left femur fracture Family History Family History (Reviewed 09/18/23 @ 14:19 by
[2023-09-18 11:48] LABS: Basophils Absolute Auto 0.1 K/mm3 (0.0-0.1); Basophils Percent Auto 1.1 % (0.2-1.2); Eosinophils Absolute Auto 0.3 K/mm3 (0-0.3); Eosinophils Percent Auto 5.2 % (0-4.4); Hematocrit 40.6 % (37.0-47.0); Hemoglobin 12.9 g/dL (12.0-15.0); Immature Granulocyte Absolute 0.03 K/mm3 (0.00-0.031); Immature Granulocyte Percent A 0.5 % (0-0.5); Lymphocytes Absolute Auto 0.53 K/mm3 (0.9-3.2); Lymphocytes Percent Auto 9.4 % (18.3-44.2); Mean Corpuscular HGB Conc 31.8 g/dl (32-36); Mean Corpuscular Hemoglobin 29.5 pg (26-34); Mean Corpuscular Volume 92.9 fl (80-100); Mean Platelet Volume 9.6 fl (7.4-10.4); Monocytes Percent Auto 0.5 % (2.6-8.5); Neutrophils Absolute Auto 4.7 K/mm3 (1.3-6.7); Neutrophils Percent Auto 83.3 % (45.5-73.1); Platelet Count Result 165 k/mm3 (150-375); Red Blood Count 4.37 M/mm3 (4.2-5.4); Red Cell Distribution Width 12.6 % (11.5-14.5); White Blood Count 5.6 K/mm3 (4.5-10.0)
[2023-09-18] MEDS: ONDANSETRON INJ 4 MG/2 ML VIAL IV PUSH (11:53)
[2023-09-18] MEDS: MORPHINE SULFATE (*CRX) 4 MG/ML INJ IV PUSH ×4 (11:53→23:29)
[2023-09-18] MEDS: SODIUM CHLORIDE 0.9% IV 1,000 ML 999 ML IV CONT (11:53)
[2023-09-18 11:59] LABS: Add Urine Microscopic? YES; Appearance Urine Cloudy (Clear); Bacteria Urine 4+ /hpf; Bilirubin Urine Negative (Negative); Blood Urine 1+ (Negative); Color Urine Yellow (Yellow); Glucose Urine UA Negative (Negative); Ketones Urine Negative (Negative); Leukocyte Esterase Ur 3+ LEU/UL (Negative); Need Manual Microscopic Reviewed; Nitrate Urine Positive (Negative); Non Pathogenic Casts 0-2; Protein Urine Trace mg/dL (Negative); Specific Grav Ur 1.018 (1.001-1.035); Squamous Epithelial Cell Urine None seen /hpf (Few); WBC Urine >100 /hpf; pH Urine 6.5 (5.0-9.0)
[2023-09-18 12:02] LABS: Alanine Aminotransferase 18 U/L (6-35); Albumin Level 4.3 g/dL (3.5-5.1); Alkaline Phosphatase 149 U/L (38-126); Anion Gap 10 mmol/L (8-16); Aspartate Amino Transferase 24 U/L (14-36); Bilirubin,Total 0.7 mg/dL (0.2-1.3); Blood Urea Nitrogen 15 mg/dL (7-17); Carbon Dioxide 25 mmol/L (22-30); Chloride 105 mmol/L (98-107); Estimated Glomerular Filt Rate 55; Glucose 110 mg/dL (65-110); Lipase 195 U/L (23-300); Potassium 4.3 mmol/L (3.4-5.0); Sodium 140 mmol/L (137-145)
[2023-09-18] MEDS: HYDROmorphone HCL INJ (*CRX) 1 MG/ML SYR 0.5 MG IV PUSH (12:21)
[2023-09-18] MEDS: LACTATED RINGERS 1,000 ML 30 ML IV CONT ×2 (13:30→15:15)
--- NOTE | 2023-09-18 13:57 | WPDURCON ---
Assessment and Plan Assessment and plan (1) Calculus of proximal left ureter: Code(s): N20.1 - Calculus of ureter Status: Acute (2) UTI (urinary tract infection): Qualifiers: Hematuria presence: with hematuria Urinary tract infection type: acute cystitis Qualified Code(s): N30.01 - Acute cystitis with hematuria Code(s): N39.0 - Urinary tract infection, site not specified Status: Acute Assessment and Plan: Will plan cystoscopy with left ureteral stent placement today. She should be admitted for broad-spectrum antibiotics pending culture results. Will needl need definitive stone intervention ( either ESWL or ureteroscopy) once infection has been thoroughly treated, as an outpatient Urology Consult Note HPI Date Seen: 09/18/23 Requesting Physician: Reji Hurst MD Primary Care Provider: Aminah Garay DO Consult Narrative Narrative: aL Heck is a 68 year old female who is known to have urolithiasis in the past that have required ESWL. She presents to the emergency department with left flank pain radiating to her left lower quadrant. Imaging demonstrates a 5 mm obstructing left proximal ureteral stone. Her urine appears infected. Although denying fever at home she was having shaking chills when I evaluated her in the ED. after discussion of options she is agreeable to cysto with placement of left ureteral stent today followed by definitive intervention ( likely ESWL ) in the future, once the infection has been adequately treated. Review of Systems Cardiovascular: Cardiovascular: Denies chest pain, Denies lightheadedness, Denies palpitations and Denies dyspnea Respiratory: Respiratory: Denies dyspnea Gastrointestinal: Gastrointestinal: Denies diarrhea, Denies nausea and Denies vomiting Genitourinary: Genitourinary: Denies hematuria and Denies dysuria Endocrine: Endocrine: Denies palpitations [facility] Past Medical History Medical History Anxiety Asthma B12 deficiency CAD (coronary artery disease) Chronic back pain Depression Diabetes mellitus Currently diet controlled with A1c of 5.7% Fibromyalgia GERD (gastroesophageal reflux disease) Hypercholesterolemia Hypertension Hypokalemia Insomnia Left ventricular hypertrophy Nonischemic cardiomyopathy Cardiac catheterization 03/27/2021 with no evidence of coronary disease Cardiac MRI 2020 EF 45% Echocardiogram demonstrated LVH with grade 1 diastolic dysfunction last echo 2020 Obesity JENNIFER (obstructive sleep apnea) Not using CPAP since she is sleeping in recliner. Polysomnogram while sleeping in a recliner demonstrated index of 3.5 RLS (restless legs syndrome) Syncope Systolic heart failure ef 45% Surgical History Surgical History H/O abdominal hysterectomy (~1994) Due to dysfunctional uterine bleeding H/O section X2 H/O elbow surgery right Nerve release History of cholecystectomy (~1986) History of hand surgery left hand 10/2019 History of Lakisha-en-Y gastric bypass History of total bilateral knee replacement Left September 2015 right December 2015 S/P implantation of urinary electronic stimulator device (~2007) Bladder stimulator placed in 2003 with subsequent removal 2014 Status post cataract extraction of both eyes with insertion of intraocular lens Status post open reduction with internal fixation of fracture (07/2022) Left femur fracture Family History Family History Sibling Diabetes mellitus Cardiomyopathy Mother , 66 years old Hypertension COPD (chronic obstructive pulmonary disease) Father Cardiomyopathy Social History Social History Social History: She lives with her of 46 years. They raised 2 sons. They h
[2023-09-18] MEDS: fentaNYL CITRATE INJ (*CRX) 100 MCG/2 ML VIAL 50 MCG IV PUSH (14:00)
--- NOTE | 2023-09-18 14:00 | WPDHPUPDATE1 ---
History and Physical Update Update Date/Time: 09/18/23 14:00 History and Physical has been reviewed, including an updated exam of the patient. There are NO changes in the patient's condition. Risks, benefits, and alternatives have been discussed and questions answered. Patient agrees to proceed with procedure.
--- NOTE | 2023-09-18 14:06 | WPDANESEPPF ---
Anes - Initial Pre Proc Eval Procedure: Operation Date: 09/18/23 14:30 Proposed Procedures p Cystoscopy, Left Stent Placement(Left) - Reji Hurst MD Date/Time: 09/18/23 14:06 Surgeon: Reji Hurst MD Pre Op Diagnosis: lower abd Patient Data Age: 68 Gender: F Height: Weight: Last Vital Signs Temp 36.6 C 09/18/23 12:38 Pulse 71 09/18/23 12:38 Resp 16 09/18/23 12:38 BP 160/91 H 09/18/23 13:01 Pulse Ox 91 09/18/23 13:01 O2 Del Method Room Air 09/18/23 10:37 Allergies Allergy/AdvReac Type Severity Reaction Status Date / Time lisinopril AdvReac Intermediate Cough Verified 07/23/23 20:21 NSAIDS (Non-Steroidal AdvReac Kidney Verified 07/23/23 20:21 Anti-Inflamma damage Home Medications Medication Instructions Recorded Confirmed Type ferrous sulfate 325 mg (65 mg 325 mg PO DAILY 07/25/19 05/16/23 History iron) tablet arginine HCl (L-arginine) 1,000 mg 1,000 mg PO BID 09/26/21 05/16/23 History tablet cyanocobalamin (vitamin B-12) 1,000 mcg IM .u3prurn #25 mL 12/07/21 05/16/23 Rx 1,000 mcg/mL injection solution cannabidiol 100 mg/mL oral solution 100 mg PO BID PRN fibromyalgia 11/13/22 05/16/23 History cholecalciferol (vitamin D3) 25 50,000 unit PO WEEKLY 11/30/22 05/16/23 History mcg (1,000 unit) capsule albuterol sulfate 90 mcg/actuation 2 puff inhalation Q4-6H PRN 02/22/23 05/03/23 Rx aerosol inhaler (Ventolin HFA) Shortness Of Breath #8.5 grams budesonide 200 mcg/actuation See Rx Instructions inhalation BID 02/27/23 05/16/23 History breath activated powder inhaler budesonide 200 mcg/actuation 200 mcg inhalation BID asthma 04/10/23 05/16/23 History breath activated powder inhaler nitroglycerin 0.1 mg/hr 0.1 mg transdermal DAILY 04/10/23 05/16/23 History transdermal 24 hour patch sacubitril 24 mg-valsartan 26 mg 1 tablet PO DAILY 04/10/23 05/16/23 History tablet (Entresto) gabapentin 300 mg capsule 300 mg PO TID #270 caps 06/11/23 Rx duloxetine 60 mg capsule,delayed 60 mg PO DAILY #5 caps 07/19/23 Rx release eszopiclone 2 mg tablet (Lunesta) 2 mg PO QHS #5 tabs 07/19/23 Rx sertraline 100 mg tablet 150 mg PO DAILY #8 tabs 07/19/23 Rx cyclobenzaprine 10 mg tablet 10 mg PO BID PRN Muscle Spasm #180 07/24/23 Rx tabs pantoprazole 40 mg tablet,delayed 40 mg PO QAM #90 tabs 08/08/23 Rx release nirmatrelvir 300 mg (150 mg See Rx Instructions PO .COMPLEX 08/14/23 Rx x2)-ritonavir 100 mg tablet,dose #30 ea pack (Paxlovid) ropinirole 2 mg tablet 2 mg PO TID #270 tabs 08/29/23 Rx syringe with needle, safety 3 mL #50 ea 08/29/23 Rx 25 gauge x 1 (BD Integra Syringe) atorvastatin 40 mg tablet 40 mg PO QHS #90 tabs 09/11/23 Rx Laboratory Tests 09/18/23 11:40 WBC 5.6 K/mm3 (4.5-10.0) RBC 4.37 M/mm3 (4.2-5.4) Hgb 12.9 g/dL (12.0-15.0) Hct 40.6 % (37.0-47.0) MCV 92.9 fl (80-100) MCH 29.5 pg (26-34) MCHC 31.8 L g/dl (32-36) RDW 12.6 % (11.5-14.5) Plt Count 165 k/mm3 (150-375) MPV 9.6 fl (7.4-10.4) Immature Gran % (Auto) 0.5 % (0-0.5) Neut % (Auto) 83.3 H % (45.5-73.1) Lymph % (Auto) 9.4 L % (18.3-44.2) [place] % (Auto) 0.5 L % (2.6-8.5) Eos % (Auto) 5.2 H % (0-4.4) Baso % (Auto) 1.1 % (0.2-1.2) Lymph # (Auto) 0.53 L K/mm3 (0.9-3.2) [place] # (Auto) 0.0 L K/mm3 (0.1-0.6) Eos # (Auto) 0.3 K/mm3 (0-0.3) Baso # (Auto) 0.1 K/mm3 (0.0-0.1) Abs Immat Gran (auto) 0.03 K/mm3 (0.00-0.031) Absolute Neuts (auto) 4.7 K/mm3 (1.3-6.7) Absolute Nucleated RBC 0.0 K/mm3 (0.0-0.012) Nucleated RBC % 0.0 % (0.0-0.2) Sodium 140 mmol/L (137-145) Potassium 4.3 mmol/L (3.4-5.0) Chloride 105 mmol/L (98-107) Carbon Dioxide 25 mmol/L (22-30) Anion Gap 10 mmol/L (8-16) BUN 15 mg/dL (7-17) Creatinine 1.00 mg/dL (0.7-1.0) Estim Creat Clear Calc Not Reportable
--- NOTE | 2023-09-18 15:01 | P.OP_ITS ---
Procedure Note - Detailed Date of Procedure 09/18/23 Pre-op Diagnosis Left ureteral stone Post-op Diagnosis Same Procedure Performed Cystoscopy, left ureteral stent placement Surgeon Reji Hurst MD Anesthesia MAC Description of Procedure The patient was brought to the operative suite where she was prepped and draped in a routine sterile fashion while in the dorsal lithotomy position. A 19 F rigid cystoscope was placed in her bladder and the bladder was circumferentially inspected. The bladder neck and urethra were endoscopically normal. The bladder mucosa was without hyperemia. There was no intravesical foreign body or neoplasm. There was a single orthotopic ureteral orifice bilaterally. I adv anced .035 glidewire into the left renal pelvis under fluoroscopy. A 4.8F variable length ureteral stent was positioned with the proximal coil in the renal pelvis and the distal coil in the bladder. Scopes and wires were removed after emptying the patient's bladder. Urine Output 100 Drains Yes Packing No Pathology None sent Complications No immediate complications Condition Stable
[2023-09-18 15:06] LABS: Glucose Point of Care 121 mg/dl (65-105)
--- NOTE | 2023-09-18 16:37 | ADMGEN ---
This patient, La Heck, was admitted to -. Patient/family oriented to hospital policies and general routines including ID bracelet, bed and alarms, visiting hours, pain management, procedures, bathroom and other care routines, personal items, smoking policy, room service/diet, and visiting hours. Information on how to activate the Rapid Response Team has been discussed. Patient/Family are encouraged to report perceived risks to care and to ask questions if they do not understand what they are told or what they should do.
[2023-09-18] MEDS: ATORVASTATIN 40 MG TABLET PO (20:12)
[2023-09-18] MEDS: CYCLOBENZAPRINE HCL 10 MG TABLET PO (20:12)
[2023-09-18] MEDS: ACETAMINOPHEN 325 MG TABLET 650 MG PO (20:12)
--- NOTE | 2023-09-18 21:41 | PM.IMHP ---
H&P: HPI History of Present Illness Date/Time: 09/18/23 21:41 Chief Complaint: Left lower abdominal pain Narrative: 68-year-old female with a past medical history of nephrolithiasis with prior lithotripsy, hypertrophic cardiomyopathy, nonischemic cardiomyopathy, type 2 diabetes mellitus, hyperlipidemia, hypertension, obstructive sleep apnea, gastric bypass procedure, prior cholecystectomy and recent diagnosis of UTI who presented to the ER with left lower quadrant abdominal pain that started this a.m.. The pain was severe in intensity and radiated to the back. Was similar to pain she has had with prior kidney stones. She had been having some increased urinary urgency but then would only dribble urine. She denies any dysuria or hematuria. She reports she was treated last month for urinary tract infection. External medication history indicates this was treated with Bactrim. She did complete her antibiotic therapy. She follows with Dr. Santiago, from [facility] due to her history of kidney stones and history of bladder stimulated replacement and subsequent removal. She reports he had planned on doing an outpatient CT scan of the abdomen pelvis in the next month or so with her next follow-up. However she came into the ER due to the symptoms today her pain was also accompanied by fever at home. Temperature was greater than 101. She denies any associated nausea, vomiting or loss of appetite. She reports having normal bowel movements. Review of Systems Review of Systems: 12 systems were reviewed with pertinent positives and negatives per HPI. Except as documented in the HPI, all other systems were reviewed and are negative. [facility] Past Medical History Medical History (Updated 09/19/23 @ 01:23 by Azul Khan DO) Anxiety Asthma B12 deficiency CAD (coronary artery disease) Chronic back pain Depression Diabetes mellitus Currently diet controlled with A1c of 5.7% Fibromyalgia GERD (gastroesophageal reflux disease) Hypercholesterolemia Hypertension Hypokalemia Insomnia Left ventricular hypertrophy Nonischemic cardiomyopathy Cardiac catheterization 03/27/2021 with no evidence of coronary disease Cardiac MRI 2020 EF 45% Echocardiogram demonstrated LVH with grade 1 diastolic dysfunction last echo 2020 Obesity JENNIFER (obstructive sleep apnea) Not using CPAP since she is sleeping in recliner. Polysomnogram while sleeping in a recliner demonstrated index of 3.5 Recurrent nephrolithiasis RLS (restless legs syndrome) Syncope Systolic heart failure ef 45% Surgical History Surgical History H/O abdominal hysterectomy (~1994) Due to dysfunctional uterine bleeding H/O section X2 H/O elbow surgery right Nerve release History of cholecystectomy (~1986) History of hand surgery left hand 10/2019 History of Lakisha-en-Y gastric bypass History of total bilateral knee replacement Left September 2015 right December 2015 S/P implantation of urinary electronic stimulator device (~2007) Bladder stimulator placed in 2003 with subsequent removal 2014 Status post cataract extraction of both eyes with insertion of intraocular lens Status post open reduction with internal fixation of fracture (07/2022) Left femur fracture Family History Family History Sibling Diabetes mellitus Cardiomyopathy Mother , 66 years old Hypertension COPD (chronic obstructive pulmonary disease) Father Cardiomyopathy Social History Social History Social History: She lives with her of 46 years. They raised 2 sons. They have 4 grandsons. She has been on disability due to her fibromyalgia since 2009. 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 She is a lifelong nonsmoker and only drinks small amounts of alcohol very rarely. She did has use marijuana for her fib
[2023-09-19] VITALS (9 sets, daily range): BP systolic 97–116; BP diastolic 46–64; PULSE 81–98; RESP 16–20; TEMP 36.4–37.5; O2SAT 93–100
[2023-09-19] MEDS: carvediloL 12.5 MG TABLET PO ×3 (01:05→20:58)
[2023-09-19] MEDS: MORPHINE SULFATE (*CRX) 4 MG/ML INJ IV PUSH ×3 (05:04→17:29)
[2023-09-19 05:21] LABS: Hematocrit 37.4 % (37.0-47.0); Hemoglobin 11.3 g/dL (12.0-15.0); Mean Corpuscular HGB Conc 30.2 g/dl (32-36); Mean Corpuscular Hemoglobin 29.7 pg (26-34); Mean Corpuscular Volume 98.4 fl (80-100); Mean Platelet Volume 9.9 fl (7.4-10.4); Platelet Count Result 140 k/mm3 (150-375); Red Cell Distribution Width 13.2 % (11.5-14.5); White Blood Count 13.7 K/mm3 (4.5-10.0)
[2023-09-19 05:59] LABS: Anion Gap 7 mmol/L (8-16); Blood Urea Nitrogen 23 mg/dL (7-17); Carbon Dioxide 27 mmol/L (22-30); Chloride 100 mmol/L (98-107); Estimated CRCL calculation 44 ml/min; Estimated Glomerular Filt Rate 41; Glucose 123 mg/dL (65-110); Sodium 134 mmol/L (137-145)
--- NOTE | 2023-09-19 08:24 | WPDUROPN2 ---
Progress Note: A&P Assessment and Plan (1) Calculus of proximal left ureter: Code(s): N20.1 - Calculus of ureter Status: Acute (2) UTI (urinary tract infection): Qualifiers: Urinary tract infection type: acute pyelonephritis Qualified Code(s): N10 - Acute pyelonephritis Code(s): N39.0 - Urinary tract infection, site not specified Status: Acute Assessment and Plan: Ceftriaxone pending blood and urine cultures Left ESWL in approx. 2 weeks. Subjective Subjective Date/Time Seen: 09/19/23 08:24 Interval history: Comfortable, tolerating stent with minimal discomfort but, overall, pain dramatically improved. Review of Systems Cardiovascular: Cardiovascular: Denies chest pain, Denies lightheadedness, Denies palpitations and Denies dyspnea Respiratory: Respiratory: Denies dyspnea Gastrointestinal: Gastrointestinal: Denies diarrhea, Denies nausea and Denies vomiting Genitourinary: Genitourinary: Denies hematuria and Denies dysuria Endocrine: Endocrine: Denies palpitations Exam Const: General: no acute distress Resp: Effort & Inspection: normal respiratory effort GI: Inspection: non-distended GI Palp: No abdominal tenderness and No Guarding due to palpation present (GI) Auscultation: normal bowel sounds Objective Data Vital Signs Vital Signs: Vital Signs - 24 hr 09/18/23 10:37 09/18/23 11:57 09/18/23 12:38 Temperature 98.1 F 97.6 F 97.9 F Pulse Rate 100 100 71 Respiratory Rate 16 18 16 Blood Pressure 155/109 H 160/100 H 167/101 H Pulse Oximetry 96 98 97 Oxygen Delivery Room Air Oxygen Flow Rate 09/18/23 12:11 09/18/23 13:00 09/18/23 13:01 Temperature Pulse Rate Respiratory Rate Blood Pressure 160/91 H Pulse Oximetry 96 93 91 Oxygen Delivery Oxygen Flow Rate 09/18/23 13:30 09/18/23 14:53 09/18/23 15:05 Temperature 101.9 F H 98.6 F Pulse Rate 111 H 100 108 H Respiratory Rate 16 26 H 26 H Blood Pressure 163/79 H 97/53 L 124/68 Pulse Oximetry 90 99 98 Oxygen Delivery Room Air Simple Face Mask Simple Face Mask Oxygen Flow Rate 6 6 09/18/23 15:20 09/18/23 15:25 09/18/23 15:35 Temperature Pulse Rate 103 H 98 Respiratory Rate 22 H 18 Blood Pressure 125/72 129/76 Pulse Oximetry 98 88 L 98 Oxygen Delivery Room Air Nasal Cannula Nasal Cannula Oxygen Flow Rate 2 2 09/18/23 16:05 09/18/23 15:50 09/18/23 17:26 Temperature 99.2 F 96.8 F L Pulse Rate 108 H 109 H 104 H Respiratory Rate 18 18 18 Blood Pressure 121/60 112/92 H 105/44 L Pulse Oximetry 97 98 96 Oxygen Delivery Nasal Cannula Nasal Cannula Oxygen Flow Rate 2 2 09/18/23 18:33 09/18/23 19:36 09/18/23 19:48 Temperature 101.0 F H 100.7 F H Pulse Rate 107 H Respiratory Rate 20 Blood Pressure 117/57 L Pulse Oximetry 96 98 Oxygen Delivery Nasal Cannula Oxygen Flow Rate 2 09/18/23 20:12 09/18/23 21:20 09/18/23 21:28 Temperature 100.7 F H 98.4 F 98.4 F Pulse Rate Respiratory Rate Blood Pressure Pulse Oximetry Oxygen Delivery Oxygen Flow Rate 09/18/23 20:00 09/19/23 03:50 09/19/23 07:44 Temperature 98.3 F 97.9 F Pulse Rate 98 89 96 Respiratory Rate 18 20 16 Blood Pressure 97/46 L 116/57 L Pulse Oximetry 94 100 97 Oxygen Delivery Nasal Cannula Oxygen Flow Rate 2 Intake/Output Intake/Output: Intake & Output 09/16/23 09/17/23 09/18/23 09/19/23 23:59 23:59 23:59 23:59 Intake Total 2510 1999 Output Total 250 300 Balance 2260 1700 Meds/Results Medications: Active Medications Generic Name Dose Route Start Last Admin Trade Name Freq PRN Reason Stop Dose Admin Acetaminophen 650 mg 09/18/23 13:52 09/18/23 20:12 Acetaminophen 325 Mg Tablet PO 650 mg Q4H PRN Administration Mild Pain (1-3) or Fever Albuterol 2 puff 09/18/23 18:55 Albuterol Sulfate (*Sp) Aerosol 1 Puff INHALATION Q4HRT PRN Shortness Of Breath Atorvastatin Calcium 40 mg
[2023-09-19] MEDS: SERTRALINE HCL 50 MG TABLET 150 MG PO (08:34)
[2023-09-19] MEDS: SACUBITRIL/VALSARTAN 24-26 MG TABLET 1 TAB PO (08:35)
[2023-09-19] MEDS: rOPINIRole HCL 1 MG TABLET 2 MG PO ×3 (08:35→17:29)
[2023-09-19] MEDS: DULoxetine HCL 60 MG CAPSULE.DR PO (08:35)
[2023-09-19] MEDS: PANTOPRAZOLE 40 MG TABLET PO (08:35)
[2023-09-19] MEDS: GABAPENTIN 300 MG CAPSULE PO ×3 (08:35→17:29)
[2023-09-19] MEDS: FERROUS SULFATE 325 MG TABLET DR PO (08:36)
[2023-09-19] MEDS: ACETAMINOPHEN 325 MG TABLET 650 MG PO ×2 (08:46→20:58)
--- NOTE | 2023-09-19 11:40 | PM.IMPN ---
Progress Note: A&P Assessment and Plan (1) Sepsis: Qualifiers: Sepsis type: sepsis due to unspecified organism Sepsis acute organ dysfunction status: without acute organ dysfunction Qualified Code(s): A41.9 - Sepsis, unspecified organism Code(s): A41.9 - Sepsis, unspecified organism Status: Acute (2) Calculus of proximal left ureter: Code(s): N20.1 - Calculus of ureter Status: Acute (3) UTI (urinary tract infection): Qualifiers: Urinary tract infection type: acute pyelonephritis Qualified Code(s): N10 - Acute pyelonephritis Code(s): N39.0 - Urinary tract infection, site not specified Status: Acute (4) Perinephric fluid collection: Code(s): N28.89 - Other specified disorders of kidney and ureter Status: Acute Plan Sepsis -Secondary to UTI and obstructing calculus -empiric IV antibiotic therapy -Monitor lactic acid levels q6hr. -Repeat CBC, CMP. -Two sets of blood cultures pending -urine cultures pending Calculus Left ureter -Urology following -Stent placement 09/18/2023 -failed PO ABX O/P -Urine and blood cultures pending -mild leukocytosis trend -antipyretics for fever -Holding if fluids due to HX of CMP -monitor renal function -ESWL post discharge 2 weeks O/P UTI -Urine cultures and blood cultures -Continue IV hydration. -Monitor CBC, CMP watch for sepsis. -Monitor vital signs. -Start antibiotics. -Start probiotics to prevent antibiotic induced diarrhea -Monitor for obstructive uropathy and pyelonephritis Code status: Full code per patient DVT prophylaxis: SCD Stress ulcer prophylaxis: Protonix 40 daily PT/OT notes: ambulatory Disposition: Patient admitted to the medical-surgical unit post day 2 from ureter stent placement left patient failed O/P abx therapy for UTI currently waiting on urine cultures then can discharge home and follow-up with urology x 2 weeks for EWSL was infection has cleared -Patient's previous records reviewed on admission -ER notes reviewed in detail on admission -discussed all findings and current treatment plan with patient/Family/POA -Consultations reviewed for recommendations -Patient's disposition for safe discharge discussed with director of casework services Dictation performed by [employer] direct speech recognition software, therefore document management specialist variants and typographical errors may occur. Time Spent With Patient Time with patient: 15 - 25 minutes Subjective Date/time seen: 09/19/23 11:40 Interval history: 68-year-old female with a past medical history of nephrolithiasis with prior lithotripsy, hypertrophic cardiomyopathy, nonischemic cardiomyopathy, type 2 diabetes mellitus, hyperlipidemia, hypertension, obstructive sleep apnea, gastric bypass procedure, prior cholecystectomy and recent diagnosis of UTI who presented to the ER with left lower quadrant abdominal pain that started this a.m..? The pain was severe in intensity and radiated to the back.? Was similar to pain she has had with prior kidney stones.? She had been having some increased urinary urgency but then would only dribble urine.? She denies any dysuria or hematuria.? She reports she was treated last month for urinary tract infection.? External medication history indicates this was treated with Bactrim.? She did complete her antibiotic therapy.? She follows with Dr. Santiago, from [facility] due to her history of kidney stones and history of bladder stimulated replacement and subsequent removal.? She reports he had planned on doing an outpatient CT scan of the abdomen pelvis in the next month or so with her next follow-up.? However she came into the ER due to the symptoms today her pain was also accompanied by fever at home.? Temperature was greater than 101.? She denies any associated nausea, vomiting or loss of appetite.? She reports having normal bowel movements. 09/19/2023: Patient resting comfortably in no acute dis
[2023-09-19] MEDS: CYANOCOBALAMIN INJ 1,000 MCG/ML VIAL 1000 MCG IM (13:52)
[2023-09-19] MEDS: ATORVASTATIN 40 MG TABLET PO (20:58)
[2023-09-19] MEDS: CYCLOBENZAPRINE HCL 10 MG TABLET PO (20:58)
--- NOTE | 2023-09-19 23:18 | PCRCNOTE ---
Pt's inhaler tx was not given due to inhaler not available. Inhaler was not refilled by pharmacy in time for her 1999 tx. It became available after administration period had passed. Pt will receive her 0800 tx in the morning.
[2023-09-20 03:50] VITALS: BP 105/58; PULSE 86; RESP 18; TEMP 36.8; O2SAT 96
--- NOTE | 2023-09-20 07:26 | WPDUROPN2 ---
Progress Note: A&P Assessment and Plan (1) Calculus of proximal left ureter: Code(s): N20.1 - Calculus of ureter Status: Acute Assessment and Plan: Urine cx: GNR / Blood cx.: NG thus far. Home anytime (when cultures complete) from my standpoint. Will schedule left ESWL for 2-weeks. Subjective Subjective Date/Time Seen: 09/20/23 07:26 Interval history: Feeling well, tolerating stent, - essentially no complaints Review of Systems Cardiovascular: Cardiovascular: Denies chest pain, Denies lightheadedness, Denies palpitations and Denies dyspnea Respiratory: Respiratory: Denies dyspnea Gastrointestinal: Gastrointestinal: Denies diarrhea, Denies nausea and Denies vomiting Genitourinary: Genitourinary: Denies hematuria and Denies dysuria Endocrine: Endocrine: Denies palpitations Exam Const: General: no acute distress Resp: Effort & Inspection: normal respiratory effort GI: Inspection: non-distended GI Palp: No abdominal tenderness and No Guarding due to palpation present (GI) Auscultation: normal bowel sounds Objective Data Vital Signs Vital Signs: Vital Signs - 24 hr 09/19/23 07:44 09/19/23 08:35 09/19/23 08:00 Temperature 97.9 F Pulse Rate 96 95 Respiratory Rate 16 Blood Pressure 116/57 L Pulse Oximetry 97 97 Oxygen Delivery Room Air 09/19/23 13:44 09/19/23 19:42 09/19/23 20:58 Temperature 97.5 F L 99.5 F Pulse Rate 81 98 94 Respiratory Rate 16 17 Blood Pressure 108/58 L 103/54 L Pulse Oximetry 95 94 Oxygen Delivery 09/19/23 20:00 09/19/23 23:53 09/20/23 03:50 Temperature 98.0 F 98.3 F Pulse Rate 90 87 86 Respiratory Rate 16 18 18 Blood Pressure 114/64 105/58 L Pulse Oximetry 95 93 96 Oxygen Delivery Room Air Intake/Output Intake/Output: Intake & Output 09/17/23 09/18/23 09/19/23 09/20/23 23:59 23:59 23:59 23:59 Intake Total 2510 3680 100 Output Total 250 1350 300 Balance 2260 2330 -200 Meds/Results Medications: Active Medications Generic Name Dose Route Start Last Admin Trade Name Freq PRN Reason Stop Dose Admin Acetaminophen 650 mg 09/18/23 13:52 09/19/23 20:58 Acetaminophen 325 Mg Tablet PO 650 mg Q4H PRN Administration Mild Pain (1-3) or Fever Albuterol 2 puff 09/18/23 18:55 Albuterol Sulfate (*Sp) Aerosol 1 Puff INHALATION Q4HRT PRN Shortness Of Breath Atorvastatin Calcium 40 mg 09/18/23 21:00 09/19/23 20:58 Atorvastatin 40 Mg Tablet PO 40 mg QHS CONSTANCE Administration Carvedilol 12.5 mg 09/19/23 01:10 09/19/23 20:58 Carvedilol 12.5 Mg Tablet PO 12.5 mg Q12HR CONSTANCE Administration Cyanocobalamin 1,000 mcg 09/19/23 09:00 09/19/23 13:52 Cyanocobalamin Inj 1,000 Mcg/Ml Vial IM 1,000 mcg [id number] CONSTANCE Administration Cyclobenzaprine HCl 10 mg 09/18/23 18:55 09/19/23 20:58 Cyclobenzaprine Hcl 10 Mg Tablet PO 10 mg BID PRN Administration Muscle Spasm Duloxetine HCl 60 mg 09/19/23 09:00 09/19/23 08:35 Duloxetine Hcl 60 Mg Capsule.Dr PO 60 mg DAILY CONSTANCE Administration Ferrous Sulfate 325 mg 09/19/23 09:00 09/19/23 08:36 Ferrous Sulfate [address] PO 10/19/23 08:59 325 mg DAILY CONSTANCE Administration Fluticasone Propionate 2 puff 09/19/23 08:00 09/19/23 22:15 Fluticasone Prop 44 Mcg Inhaler 1 Puff INHALATION Not Given Q12HRT [facility] Gabapentin 300 mg 09/19/23 09:00 09/19/23 17:29 Gabapentin 300 Mg Capsule PO 300 mg TID CONSTANCE Administration Hydromorphone HCl 0.5 mg 09/18/23 13:52 Hydromorphone Hcl Inj (*Crx) 1 Mg/Ml Syr IV PUSH Q4H PRN Pain Rated 7-10 Ceftriaxone Sodium 1 gm in 50 mls @ 100 mls/hr 09/19/23 09:00 09/19/23 08:36 Rocephin 1 Gm/Ns 50 Ml IVPB 100 mls/hr Q24H CONSTANCE Administration Morphine Sulfate 4 mg 09/18/23 13:52 09/19/23 17:29 Morphine Sulfate (*Crx) 4 Mg/Ml Inj IV PUSH 4 mg Q2H PRN Administration Pain Rated 4-6 Ondansetron HCl 4 mg 01
[2023-09-20 07:28] LABS: Hematocrit 31.2 % (37.0-47.0); Hemoglobin 9.8 g/dL (12.0-15.0); Mean Corpuscular HGB Conc 31.4 g/dl (32-36); Mean Corpuscular Volume 95.4 fl (80-100); Mean Platelet Volume 10.1 fl (7.4-10.4); Platelet Count Result 104 k/mm3 (150-375); Red Blood Count 3.27 M/mm3 (4.2-5.4); Red Cell Distribution Width 13.2 % (11.5-14.5); White Blood Count 7.5 K/mm3 (4.5-10.0)
[2023-09-20 07:41] LABS: Alanine Aminotransferase 24 U/L (6-35); Albumin Level 3.2 g/dL (3.5-5.1); Alkaline Phosphatase 101 U/L (38-126); Anion Gap 8 mmol/L (8-16); Aspartate Amino Transferase 30 U/L (14-36); Bilirubin,Total 0.6 mg/dL (0.2-1.3); Blood Urea Nitrogen 26 mg/dL (7-17); Calcium 8.1 mg/dL (8.4-10.2); Carbon Dioxide 25 mmol/L (22-30); Chloride 99 mmol/L (98-107); Estimated CRCL calculation 48 ml/min; Estimated Glomerular Filt Rate 45; Glucose 92 mg/dL (65-110); Potassium 3.9 mmol/L (3.4-5.0); Sodium 132 mmol/L (137-145)
[2023-09-20 08:19] VITALS: O2SAT 96
[2023-09-20 08:31] VITALS: PULSE 86
[2023-09-20] MEDS: MORPHINE SULFATE (*CRX) 4 MG/ML INJ IV PUSH (08:31)
[2023-09-20] MEDS: ACETAMINOPHEN 325 MG TABLET 650 MG PO (08:31)
[2023-09-20] MEDS: SACUBITRIL/VALSARTAN 24-26 MG TABLET 1 TAB PO (08:31)
[2023-09-20] MEDS: SERTRALINE HCL 50 MG TABLET 150 MG PO (08:31)
[2023-09-20] MEDS: carvediloL 12.5 MG TABLET PO (08:31)
[2023-09-20] MEDS: rOPINIRole HCL 1 MG TABLET 2 MG PO ×2 (08:32→12:29)
[2023-09-20] MEDS: GABAPENTIN 300 MG CAPSULE PO ×2 (08:32→12:29)
[2023-09-20] MEDS: PANTOPRAZOLE 40 MG TABLET PO (08:32)
[2023-09-20] MEDS: DULoxetine HCL 60 MG CAPSULE.DR PO (08:32)
[2023-09-20] MEDS: FERROUS SULFATE 325 MG TABLET DR PO (08:32)
--- NOTE | 2023-09-20 09:43 | PM.IMPN ---
Progress Note: A&P Assessment and Plan (1) Sepsis: Qualifiers: Sepsis type: sepsis due to unspecified organism Sepsis acute organ dysfunction status: without acute organ dysfunction Qualified Code(s): A41.9 - Sepsis, unspecified organism Code(s): A41.9 - Sepsis, unspecified organism Status: Acute (2) Calculus of proximal left ureter: Code(s): N20.1 - Calculus of ureter Status: Acute (3) UTI (urinary tract infection): Qualifiers: Urinary tract infection type: acute pyelonephritis Qualified Code(s): N10 - Acute pyelonephritis Code(s): N39.0 - Urinary tract infection, site not specified Status: Acute (4) Perinephric fluid collection: Code(s): N28.89 - Other specified disorders of kidney and ureter Status: Acute Plan Sepsis -Secondary to UTI and obstructing calculus-RESOLVED -empiric IV antibiotic therapy -Monitor lactic acid levels q6hr. -Repeat CBC, CMP. -Two sets of blood cultures NGTD -urine cultures Gram negative bacilli pending sensitivity Calculus Left ureter -Urology following -Stent placement 09/18/2023 -failed PO ABX O/P -urine cultures Gram negative bacilli pending sensitivity -blood cultures NGTD -mild leukocytosis trend -antipyretics for fever -Holding if fluids due to HX of CMP -monitor renal function -ESWL post discharge 2 weeks O/P UTI -urine cultures Gram negative bacilli pending sensitivity -Continue IV hydration. -Monitor CBC, CMP watch for sepsis. -Monitor vital signs. -Start antibiotics. -Start probiotics to prevent antibiotic induced diarrhea -Monitor for obstructive uropathy and pyelonephritis Code status: Full code per patient DVT prophylaxis: SCD Stress ulcer prophylaxis: Protonix 40 daily PT/OT notes: ambulatory Disposition: Patient admitted to the medical-surgical unit post day 2 from ureter stent placement left patient failed O/P abx therapy for UTI currently waiting on urine cultures then can discharge home and follow-up with urology x 2 weeks for EWSL was infection has cleared -Patient's previous records reviewed on admission -ER notes reviewed in detail on admission -discussed all findings and current treatment plan with patient/Family/POA -Consultations reviewed for recommendations -Patient's disposition for safe discharge discussed with case finishing machine adjuster Dictation performed by [employer] Fluency direct speech recognition software, therefore mobility specialist variants and typographical errors may occur. Time Spent With Patient Time with patient: 15 - 25 minutes Subjective Date/time seen: 09/20/23 09:43 Interval history: 68-year-old female with a past medical history of nephrolithiasis with prior lithotripsy, hypertrophic cardiomyopathy, nonischemic cardiomyopathy, type 2 diabetes mellitus, hyperlipidemia, hypertension, obstructive sleep apnea, gastric bypass procedure, prior cholecystectomy and recent diagnosis of UTI who presented to the ER with left lower quadrant abdominal pain that started this a.m..? The pain was severe in intensity and radiated to the back.? Was similar to pain she has had with prior kidney stones.? She had been having some increased urinary urgency but then would only dribble urine.? She denies any dysuria or hematuria.? She reports she was treated last month for urinary tract infection.? External medication history indicates this was treated with Bactrim.? She did complete her antibiotic therapy.? She follows with Dr. Santiago, from [facility] due to her history of kidney stones and history of bladder stimulated replacement and subsequent removal.? She reports he had planned on doing an outpatient CT scan of the abdomen pelvis in the next month or so with her next follow-up.? However she came into the ER due to the symptoms today her pain was also accompanied by fever at home.? Temperature was greater than 101.? She denies any associated nausea, vomiting or loss of a
[2023-09-20] MEDS: HYDROcodone/acetaminophen (*CRX) 5-325 MG TABLET 1 TAB PO (12:29)
[2023-09-20 14:20] VITALS: BP 98/50; PULSE 74; RESP 18; TEMP 36.4; O2SAT 94
--- NOTE | 2023-09-20 14:33 | PM.DS ---
DS: Admitting Diagnosis Discharge Date 09/20/2023 Admitting Diagnosis Calculus of Left Ureter with UTI DS: Discharge Diagnosis Discharge Diagnosis (1) Sepsis: Qualifiers: Sepsis type: sepsis due to unspecified organism Sepsis acute organ dysfunction status: without acute organ dysfunction Qualified Code(s): A41.9 - Sepsis, unspecified organism Code(s): A41.9 - Sepsis, unspecified organism Status: Acute (2) Calculus of proximal left ureter: Code(s): N20.1 - Calculus of ureter Status: Acute (3) UTI (urinary tract infection): Qualifiers: Urinary tract infection type: acute pyelonephritis Qualified Code(s): N10 - Acute pyelonephritis Code(s): N39.0 - Urinary tract infection, site not specified Status: Acute (4) Perinephric fluid collection: Code(s): N28.89 - Other specified disorders of kidney and ureter Status: Acute Plan Calculus -Stent placed LT Ureter -Follow-up Urology (Dr. Hurst) as scheduled for EWSL -Pain medication prescribed -Increase oral hydration UTI -Klebsiella -Ciprofloxacin x 14 days take full therapy as described -increase oral hydration DS: Summary Hospital Course Reason for hospitalization: Calculus Left Ureter UTI Hospital Course: 68-year-old female with a past medical history of nephrolithiasis with prior lithotripsy, hypertrophic cardiomyopathy, nonischemic cardiomyopathy, type 2 diabetes mellitus, hyperlipidemia, hypertension, obstructive sleep apnea, gastric bypass procedure, prior cholecystectomy and recent diagnosis of UTI who presented to the ER with left lower quadrant abdominal pain that started this a.m..? The pain was severe in intensity and radiated to the back.? Was similar to pain she has had with prior kidney stones.? She had been having some increased urinary urgency but then would only dribble urine.? She denies any dysuria or hematuria.? She reports she was treated last month for urinary tract infection.? External medication history indicates this was treated with Bactrim.? She did complete her antibiotic therapy.? She follows with Dr. Santiago, from [facility] due to her history of kidney stones and history of bladder stimulated replacement and subsequent removal.? She reports he had planned on doing an outpatient CT scan of the abdomen pelvis in the next month or so with her next follow-up.? However she came into the ER due to the symptoms today her pain was also accompanied by fever at home.? Temperature was greater than 101.? She denies any associated nausea, vomiting or loss of appetite.? She reports having normal bowel movements. CT ABD showed a 6mm proximal left ureteral stone with mild hydronephrosis and perinephric collection. Patient was then taken to surgery for stent placement to the left ureter which there were no complication during or post intervention. 09/19/2023:??Patient resting comfortably in no acute distress, some mild diaphoresis noted patient denies any fevers however does report some chills overnight.? Leukocytosis 13.5 continue with IV therapy pending urine cultures.? Blood cultures still pending 09/20/2023:? Patient up in chair reports mild LT CVA tenderness, urinating appropriately with some dysuria to be expected.? WBC WNL today currently just waiting on final culture reports with sensitivity then patient can discharge to home. Patient culture resulted and showed klebsiella. Patient was then discharged home on Ciprofloxacin and will follow-up with urology in 2 weeks for removal of stent. Status at Discharge Functional status at discharge: independent ambulation Time Spent with Patient Time attestation: Total time spent providing and/or coordinating discharge services: Time spent: Greater than 30 minutes Exam Narrative: Physical Exam: - GENERAL: Alert and oriented x 3. No acute distress. Well-nourished. - EYES: EOMI. No scleral icterus. PERRLA. - HEENT: Moist mucous membranes. No cervical
--- NOTE | 2023-09-22 21:22 | PC.NURSE ---
Positive blood culture resulted from Lab. Patient discharged from inpatient, so result was called to PMD, Dr. Aminah Garay. Dr. Garay advised that she will be in touch with the patient.
== END 2023-09-20 15:55 | disposition home or self-care (01) | DRG 854 ==
LOC: ANHED 13:11 → ANHSURGERY 13:24 → ANH2MED 16:44
PROVIDERS: Internal Medicine; Urology; Admitting Provider Internal Medicine; Emergency Provider Physician Assistant; PCP Family Medicine; Visit Provider Nurse Practitioner Family
PROC: 0T778DZ Dilation of Left Ureter with Intraluminal Device, Via Natural or Artificial Opening Endoscopic (ICD-10-PCS; CPT 52352; principal; 2023-09-18 14:30)
DX: A41.89 Other specified sepsis (principal); I42.2 Other hypertrophic cardiomyopathy; N13.6 Pyonephrosis; I50.22 Chronic systolic (congestive) heart failure; N28.89 Other specified disorders of kidney and ureter; B96.1 Klebsiella pneumoniae [K. pneumoniae] as the cause of diseases classified elsewhere; I25.10 Atherosclerotic heart disease of native coronary artery without angina pectoris; K21.9 Gastro-esophageal reflux disease without esophagitis; M79.7 Fibromyalgia; E66.9 Obesity, unspecified; G47.33 Obstructive sleep apnea (adult) (pediatric); G25.81 Restless legs syndrome; Z96.653 Presence of artificial knee joint, bilateral; Z68.37 Body mass index [BMI] 37.0-37.9, adult; Z90.710 Acquired absence of both cervix and uterus; Z96.1 Presence of intraocular lens; Z98.42 Cataract extraction status, left eye; Z98.41 Cataract extraction status, right eye; Z98.84 Bariatric surgery status; Z90.49 Acquired absence of other specified parts of digestive tract
CPT/HCPCS: 36415; 74018; 74176; 80048; 80053; 81001; 82948; 83690; 85025; 85027; 87040; 87077; 87086; 87186; 94640; 96361; 96365; 96375; 99285; A9270; C1769; C2617; G0378; J0696; J1170; J2270; J2405; J2704; J3010; J3420; J7030; J7120

== ENCOUNTER 2023-10-02 08:15 | Outpatient (CLI) | payer MEDICARE, OTHER, SELFPAY ==
[2023-10-02 08:47] LABS: Hematocrit 36.2 % (37.0-47.0)
[2023-10-02 09:00] LABS: INR 1.1; Prothrombin Time 14.8 Seconds (11.1-14.7)
[2023-10-02 09:01] LABS: Partial Thromboplastin Time 31.9 SECONDS (22.3-36.8)
== END 2023-10-02 08:16 | disposition home or self-care (01) ==
PROVIDERS: Anesthesiology; PCP Family Medicine; Visit Provider Urology
DX: Z01.818 Encounter for other preprocedural examination (principal); N20.0 Calculus of kidney; Z78.9 Other specified health status
CPT/HCPCS: 36415; 85014; 85018; 85610; 85730; 87086; 87088

== ENCOUNTER 2023-10-05 01:03 | Day surgery (SDC) | payer MEDICARE, OTHER, SELFPAY ==
--- NOTE | 2023-09-24 14:29 | PC.NURSE ---
Report to the Outpatient Waiting Room, entrance under the green pavilion located off [facility], at time _0600 on date _10/05/23 . Planned Procedure Time: _0730 . Time changes happen often and if your time is changed the preop area will call you the afternoon before. - You and your visitor will be asked to self-screen and do not enter if you have any COVID symptoms. - A mask is optional within the hospital at this time. Patients may have clear liquids (water, carbonated beverages, clear teas, apple juice) until 3 hours prior to surgery( 4:30 AM) with a maximum of 20 ounces. - No food from midnight until time of surgery - Infants may have breast milk until 4 hours before surgery, infant formula 6 hours prior to surgery. - Children will be allowed to drink immediately following surgery. If applicable, please bring a bottle or sippy cup to assist with drinking. Juice, water, soda, and popsicles are readily available. For infants on formula, please bring formula the day of surgery. Pacifiers are allowed. Take the following medications with a SIP of water the morning of surgery: ___BUDESONIDE INHALER,CARVEDILOL,DULOXETINE,GABAPENTIN, AND SERTRALINE DO NOT STOP ANY OF YOUR OTHER PRESCRIPTION MEDICATIONS PRIOR TO SURGERY ?EXCEPT THE FOLLOWING Medications to discontinue per physician ALL VITAMINS AND SUPPLEMENTS 3 DAYS PRE OP .LAST DOSE 10/01/23 Please no make-up, nail kiswahili, hairspray, perfume, deodorant, or body powder the day of surgery. No jewelry (including any body piercings) or valuables the day of surgery, leave them at home. Please take a shower or bath the night before, or the morning of, surgery with an antibacterial soap. Wear comfortable, loose fitting clothing. Children are encouraged to wear pajamas. - Jewelry must be removed prior to entering the operating room. Rings and piercings that are not removed may be cut off. - The hospital will not accept responsibility for valuables. - Please leave all valuables, including medications, at home the day of surgery. If you are going home after surgery, a licensed bus driver school must drive you home. - NO public transportation without another adult if you receive anesthesia. - We recommend that an adult stay with you for 24 hours following discharge. - We also recommend that you do not drive, make important decision, drink alcoholic beverages, or take any drugs that were not prescribed by your health care provider for at least 24 hours after your discharge time. For Pediatric surgeries, we recommend two adults accompany the child home. Follow any additional instructions given to you from your surgeon. If you or anyone in your household have experienced Covid symptoms in the past week, please notify your surgeon or the nurse liaison at the phone number below for possible testing. Telephone instructions given to __PATIENT and asked if any additional questions and then verbalized understanding. Patient advised to call surgeon office or pre surgery nurse liaison [phone] if any additional questions.
[2023-09-24 14:43] VITALS: BMI 34.9
--- NOTE | 2023-09-28 07:45 | PM.HPGS ---
History of Present Illness History of Present Illness Consent: Risks, benefits, and alternatives have been discussed and questions answered. Patient agrees to proceed with procedure. Chief complaint: left kidney stone Narrative: La Heck is a 68 year old female without prior significant history of urolithiasis until she presented to the emergency department approximately 2 weeks ago with a painful obstructing 5 mm left proximal ureteral stone and febrile urinary tract infection. A ureteral stent was placed, her infection has been thoroughly treated and in his she now presents for definitive left ESWL. I will plan to remove her stent simultaneously. She is aware of the risks including, but not limited to, need for additional procedures, hematuria and perinephric hematoma. Review of Systems Review of Systems: All systems reviewed & are unremarkable except as noted in HPI and below PMFSH Past Medical History Medical History (Updated 09/19/23 @ 01:23 by Azul Khan DO) Anxiety Asthma B12 deficiency CAD (coronary artery disease) Chronic back pain Depression Diabetes mellitus Currently diet controlled with A1c of 5.7% Fibromyalgia GERD (gastroesophageal reflux disease) Hypercholesterolemia Hypertension Hypokalemia Insomnia Left ventricular hypertrophy Nonischemic cardiomyopathy Cardiac catheterization 03/27/2021 with no evidence of coronary disease Cardiac MRI 2020 EF 45% Echocardiogram demonstrated LVH with grade 1 diastolic dysfunction last echo 2020 Obesity JENNIFER (obstructive sleep apnea) Not using CPAP since she is sleeping in recliner. Polysomnogram while sleeping in a recliner demonstrated index of 3.5 Recurrent nephrolithiasis RLS (restless legs syndrome) Syncope Systolic heart failure ef 45% Surgical History Surgical History H/O abdominal hysterectomy (~1994) Due to dysfunctional uterine bleeding H/O section X2 H/O elbow surgery right Nerve release History of cholecystectomy (~1986) History of hand surgery left hand 10/2019 History of Lakisha-en-Y gastric bypass History of total bilateral knee replacement Left September 2015 right December 2015 S/P implantation of urinary electronic stimulator device (~2007) Bladder stimulator placed in 2003 with subsequent removal 2014 Status post cataract extraction of both eyes with insertion of intraocular lens Status post open reduction with internal fixation of fracture (07/2022) Left femur fracture Family History Family History Sibling Diabetes mellitus Cardiomyopathy Mother , 66 years old Hypertension COPD (chronic obstructive pulmonary disease) Father Cardiomyopathy Social History Social History Social History: She lives with her of 46 years. They raised 2 sons. They have 4 grandsons. She has been on disability due to her fibromyalgia since 2009. 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 She is a lifelong nonsmoker and only drinks small amounts of alcohol very rarely. She did has use marijuana for her fibromyalgia. Code status: Full code Surrogate decision maker: Smoking status: Never smoker Alcohol intake: current Alcohol use details: very rarely Substance use: current Substance use type: marijuana Other substance usage details: medical marijuana as needed Do You Feel Safe in your Home?: Yes Lack of Transportation: No Lack of Food: Never True Current Housing: I Have Housing Concerned About Future Housing: No Difficulty Paying Gas/Electric Bills: No Difficulty Paying for Meds: No Currently Unemployed: No Education: Bachelor's Degree Difficulty w/ Childcare or Family Care: No Living arrangements: with family Gender identity (if verbalized by the patient): Female Spiritual care con
--- NOTE | ~2023-10-05 | XR_ITS ---
XR abdomen/kub 1V 10/05/2023 07:53 Indication: Renal stones Procedure: KUB Comparison: 12/23/2012 Findings: Bowel gas pattern nonobstructive. Moderate colonic fecal loading. Left internal ureteral st ent in expected position. There are cholecystectomy clips. There are left renal stones obscured by noemi wel content. Moderate lumbar spondylosis with scoliosis. Impression: 1: Left nephrolithiasis. Left internal ureteral stent in expected position. Reviewed, dictated and finalized at location B. OTYPIST Impression: 1: Left nephrolithiasis. Left internal ureteral stent in expected position.
--- NOTE | 2023-10-05 06:32 | WPDHPUPDATE1 ---
History and Physical Update Update Date/Time: 10/05/23 06:32 History and Physical has been reviewed, including an updated exam of the patient. There are NO changes in the patient's condition. Risks, benefits, and alternatives have been discussed and questions answered. Patient agrees to proceed with procedure.
--- NOTE | 2023-10-05 08:31 | WPDANESEPPF ---
Anes - Initial Pre Proc Eval Procedure: Operation Date: 10/05/23 09:45 Proposed Procedures p Left Extracorporeal Shock Wave Lithotripsy - Reji Hurst MD s Cystoscopy with Left Stent Removal - Reji Hurst MD Date/Time: 10/05/23 08:31 Surgeon: Reji Hurst MD Pre Op Diagnosis: left kidney stone Patient Data Age: 68 Gender: F Height: 1.65 m Weight: 95.35 kg Allergies Allergy/AdvReac Type Severity Reaction Status Date / Time lisinopril AdvReac Intermediate Cough Verified 09/24/23 14:12 NSAIDS (Non-Steroidal AdvReac Kidney Verified 09/24/23 14:12 Anti-Inflamma damage Home Medications Medication Instructions Recorded Confirmed Type ferrous sulfate 325 mg (65 mg 325 mg PO DAILY 07/25/19 09/24/23 History iron) tablet arginine HCl (L-arginine) 1,000 mg 1,000 mg PO BID 09/26/21 09/24/23 History tablet cyanocobalamin (vitamin B-12) 1,000 mcg IM .b1wvoly #25 mL 12/07/21 09/24/23 Rx 1,000 mcg/mL injection solution cholecalciferol (vitamin D3) 25 50,000 unit PO WEEKLY 11/30/22 09/24/23 History mcg (1,000 unit) capsule albuterol sulfate 90 mcg/actuation 2 puff inhalation Q4-6H PRN 02/22/23 09/24/23 Rx aerosol inhaler (Ventolin HFA) Shortness Of Breath #8.5 grams budesonide 200 mcg/actuation 200 mcg inhalation BID asthma 04/10/23 09/24/23 History breath activated powder inhaler nitroglycerin 0.1 mg/hr 0.1 mg transdermal PRN PRN Chest 04/10/23 09/24/23 History transdermal 24 hour patch Pain sacubitril 24 mg-valsartan 26 mg 1 tablet PO DAILY 04/10/23 09/24/23 History tablet (Entresto) gabapentin 300 mg capsule 300 mg PO TID #270 caps 06/11/23 09/24/23 Rx eszopiclone 2 mg tablet (Lunesta) 2 mg PO QHS #5 tabs 07/19/23 09/24/23 Rx sertraline 100 mg tablet 150 mg PO DAILY #8 tabs 07/19/23 09/24/23 Rx cyclobenzaprine 10 mg tablet 10 mg PO BID PRN Muscle Spasm #180 07/24/23 09/24/23 Rx tabs pantoprazole 40 mg tablet,delayed 40 mg PO QAM #90 tabs 08/08/23 09/24/23 Rx release ropinirole 2 mg tablet 2 mg PO TID #270 tabs 08/29/23 09/24/23 Rx syringe with needle, safety 3 mL #50 ea 08/29/23 09/18/23 Rx 25 gauge x 1 (BD Integra Syringe) atorvastatin 40 mg tablet 40 mg PO QHS #90 tabs 09/11/23 09/24/23 Rx carvedilol 12.5 mg tablet (Coreg) 12.5 mg PO BID 09/18/23 09/24/23 History ciprofloxacin HCl 500 mg tablet 500 mg PO Q12H 14 days #28 tabs 09/20/23 09/24/23 Rx hydrocodone 5 mg-acetaminophen 325 1 tablet PO Q6H PRN Pain Rated 4-6 09/20/23 09/24/23 Rx mg tablet #20 tabs duloxetine 60 mg capsule,delayed 60 mg PO DAILY #90 caps 09/28/23 Rx release Patient hx anesthesia problems: none Family hx anesthesia problems: none Results Review: All pre-operative results and documents have been reviewed as part of the pre-operative evaluation. [facility] Past Medical History Medical History Anxiety Asthma B12 deficiency CAD (coronary artery disease) Chronic back pain Depression Diabetes mellitus Currently diet controlled with A1c of 5.7% Fibromyalgia GERD (gastroesophageal reflux disease) Hypercholesterolemia Hypertension Hypokalemia Insomnia Left ventricular hypertrophy Nonischemic cardiomyopathy Cardiac catheterization 03/27/2021 with no evidence of coronary disease Cardiac MRI 2020 EF 45% Echocardiogram demonstrated LVH with grade 1 diastolic dysfunction last echo 2020 Obesity JENNIFER (obstructive sleep apnea) Not using CPAP since she is sleeping in recliner. Polysomnogram while sleeping in a recliner demonstrated index of 3.5 Recurrent nephrolithiasis RLS (restless legs syndrome) Syncope Systolic heart failure ef 45% Surgical History Surgical History H/O abdominal hysterectomy (~1994) Due to dysfunctional uterine bleeding H/O section X2 H/O elbow surgery right Nerve release History of cholecystectomy (~1986) History of hand surgery l
[2023-10-05 08:59] VITALS: BP 128/61; PULSE 98; RESP 14; TEMP 36.4; O2SAT 99
[2023-10-05 08:59] LABS: Glucose Point of Care 112 mg/dl (65-105)
[2023-10-05] MEDS: LACTATED RINGERS 1,000 ML 30 ML IV CONT (09:06)
[2023-10-05] MEDS: ceFAZolin 2 GM/D5W 50 ML 2 GM/50 ML BAG IVPB (09:31)
--- NOTE | 2023-10-05 09:52 | P.OP_ITS ---
Procedure Note - Detailed Date of Procedure 10/05/23 Pre-op Diagnosis Left kidney stone Post-op Diagnosis Same Procedure Performed Cystoscopy, left ureteral stent removal, left ESWL Surgeon Reji Hurst MD Anesthesia General Description of Procedure The patient was brought to the operative suite where she was placed in the frog- legged position on the Dornier lithotripter table. Flexible cystoscopy was undertaken with a 16F flexible cystoscopy. The tip of the indwelling stent was grasped and the stent was removed with ease. The patient was then repositioned in the supine position and the focal point of the lithotriptor was placed at a 6mm left renal stone which had been pushed back into her kidney with prior stent placement. A total of 2500 shocks were delivered at a power setting of 4. There appeared to be good fragmentation of the stone. The patient tolerated the procedure well and was taken to the recovery room in good condition. Urine Output 0 Drains No Packing Yes Pathology None sent Complications No immediate complications Condition Stable
[2023-10-05 10:17] VITALS: BP 101/80; PULSE 90; RESP 14; TEMP 36.8; O2SAT 100
[2023-10-05 10:30] VITALS: BP 130/75; PULSE 114; RESP 19; O2SAT 98
[2023-10-05 10:43] VITALS: BP 135/86; PULSE 91; RESP 11; O2SAT 97
[2023-10-05 10:50] VITALS: BP 96/57; PULSE 97; RESP 16
[2023-10-05 11:20] VITALS: BP 112/53; PULSE 98; RESP 16
== END 2023-10-05 11:40 | disposition home or self-care (01) ==
PROVIDERS: PCP Family Medicine; Visit Provider Urology
PROC: (CPT 50590; principal; 2023-10-05 09:45)
PROC: (CPT 52310; 2023-10-05 09:45)
DX: N20.0 Calculus of kidney (principal); I42.8 Other cardiomyopathies; I50.20 Unspecified systolic (congestive) heart failure; E11.9 Type 2 diabetes mellitus without complications; G47.33 Obstructive sleep apnea (adult) (pediatric); J45.909 Unspecified asthma, uncomplicated; F41.9 Anxiety disorder, unspecified; E53.8 Deficiency of other specified B group vitamins; F32.A Depression, unspecified; K21.9 Gastro-esophageal reflux disease without esophagitis; E78.00 Pure hypercholesterolemia, unspecified; Z79.51 Long term (current) use of inhaled steroids; I25.10 Atherosclerotic heart disease of native coronary artery without angina pectoris; G25.81 Restless legs syndrome; Z98.84 Bariatric surgery status; M79.7 Fibromyalgia; F12.90 Cannabis use, unspecified, uncomplicated; E66.9 Obesity, unspecified; Z68.36 Body mass index [BMI] 36.0-36.9, adult
CPT/HCPCS: 50590; 52310; 74018; 82948; J0690; J1100; J2250; J2405; J2704; J3010; J7120

== ENCOUNTER 2023-10-15 07:30 | Outpatient (CLI) | payer MEDICARE, OTHER, SELFPAY ==
[2023-10-15 08:26] LABS: Erythrocyte Sedimentation Rate 53 mm/hr (0-20)
[2023-10-15 08:37] LABS: CRP < 0.5 mg/dL (<1.0)
== END 2023-10-15 07:31 | disposition home or self-care (01) ==
PROVIDERS: PCP Family Medicine
DX: Z96.652 Presence of left artificial knee joint (principal)
CPT/HCPCS: 36415; 85652; 86140

== ENCOUNTER 2023-10-24 08:28 | Outpatient (CLI) | payer MEDICARE, OTHER, SELFPAY ==
--- NOTE | ~2023-10-24 | XR_ITS ---
EXAMINATION: XR abdomen/kub 1V DATE: 10/24/2023 08:52 INDICATION: Left kidney stone. TECHNIQUE: A supine view of the abdomen on 2 radiographs was obtained. COMPARISON: Abdomen radiographs 10/05/2023, CT abdomen and pelvis 09/18/2023 FINDINGS: There are no dilated loops of bowel. There is a small volume of stool in the colon. There i s a 6 mm stone in left kidney. Surgical clips in the right upper quadrant are likely from cholecystec ki. There is internal fixation of left femur. IMPRESSION: 1. 6 mm stone in left kidney. Reviewed, dictated and finalized at location A. STRIAL ILLUMINATING ENGINEER
== END 2023-10-24 08:29 | disposition home or self-care (01) ==
LOC: ANHIMG 08:31
PROVIDERS: PCP Family Medicine; Visit Provider Urology
DX: N20.0 Calculus of kidney (principal)
CPT/HCPCS: 74018

== ENCOUNTER 2024-01-03 07:25 | Outpatient (CLI) | payer MEDICARE, OTHER, SELFPAY ==
--- NOTE | 2024-01-03 07:39 | ECG_ITS ---
SEE SCANNED COPY FOR CONFIRMED REPORT MTDD
== END 2024-01-03 07:26 | disposition home or self-care (01) ==
LOC: ANHCARD 07:29
PROVIDERS: PCP Family Medicine; Visit Provider Internal Medicine Cardiovascular Disease
DX: R07.89 Other chest pain (principal); R94.31 Abnormal electrocardiogram [ECG] [EKG]
CPT/HCPCS: 93005

== ENCOUNTER 2024-01-17 08:05 | Outpatient (CLI) | payer MEDICARE, OTHER, SELFPAY ==
--- NOTE | ~2024-01-17 | MR_ITS ---
MRI of the lumbar spine Clinical History: Radiculopathy Technique: Axial T2-weighted images, and sagittal T1-weighted, T2-weighted, and T2 fat-sat images wer e acquired. COMPARISON: 06/12/2022 Findings: There is a 6 mm anterolisthesis of L4 over L5. No fracture seen. No suspicious bone marrow signal reality seen. At L1-L2, there is mild degenerative change. No disc bulge or herniation. There is moderate facet art hropathy. No central canal stenosis or neural foraminal narrowing. At L2-L3, there is minimal disc bulge with moderate to advanced facet arthropathy. No central canal s tenosis or neural foraminal narrowing. At L3-L4, there is mild degenerative disc narrowing. There is minimal disc bulge with advanced facet arthropathy. No central canal stenosis or neural foraminal narrowing. At L4-L5, there is disc bulge/uncovering with severe facet arthropathy. There is mild central canal s tenosis. Bilateral neural foramina are preserved. At L5-S1, there is mild disc bulge with advanced facet arthropathy. No central canal stenosis or neur al foraminal narrowing. Paravertebral soft tissues are unremarkable. Impression: Mild degenerative spondylosis, as above. 6 mm anterolisthesis of L4 over L5. Reviewed, dictated and finalized at [facility]. Impression: Mild degenerative spondylosis, as above. 6 mm anterolisthesis of L4 over L5.
== END 2024-01-17 08:06 ==
LOC: GOSHIMG 08:06
PROVIDERS: PCP Family Medicine; Visit Provider Nurse Practitioner Family
DX: M43.06 Spondylolysis, lumbar region (principal)
CPT/HCPCS: 72148

== ENCOUNTER 2024-01-28 13:24 | Emergency (ER) | payer MEDICARE, OTHER, SELFPAY ==
[2024-01-28 13:35] VITALS: BP 146/84; PULSE 88; RESP 18; TEMP 36.7; O2SAT 100
--- NOTE | 2024-01-28 14:25 | ED.URI ---
HPI - URI/Sore Throat General Chief Complaint: Upper Respiratory Infection Stated Complaint: cough,tired Time Seen by Provider: 01/28/24 14:17 Source: patient and RN notes reviewed Mode of arrival: ambulatory Limitations: no limitations History of Present Illness HPI Narrative: Patient presents today complaining of 5 day history of nasal congestion, cough, postnasal drip, body aches and fatigue. She also reports some mild shortness of breath. Wheezing started this morning. Denies fever. She has tried some Mucinex without relief. She is having knee surgery in 2 weeks. She states her PCP in 2 days for clearance for surgery. Patient has history of asthma as well and has been using her albuterol inhaler and scheduled inhaler as well. States the albuterol does help at times. Related Data Home Medications Medication Instructions Recorded Confirmed ferrous sulfate 325 mg (65 mg 325 mg PO DAILY 07/25/19 01/28/24 iron) tablet arginine HCl (L-arginine) 1,000 mg 1,000 mg PO BID 09/26/21 01/28/24 tablet budesonide 200 mcg/actuation 200 mcg inhalation BID asthma 04/10/23 01/28/24 breath activated powder inhaler nitroglycerin 0.1 mg/hr 0.1 mg transdermal PRN PRN Chest 04/10/23 01/28/24 transdermal 24 hour patch Pain sacubitril 24 mg-valsartan 26 mg 1 tablet PO DAILY 04/10/23 01/28/24 tablet (Entresto) carvedilol 12.5 mg tablet (Coreg) 12.5 mg PO BID 09/18/23 01/28/24 Botox injection IM 11/14/23 11/18/23 vibegron 75 mg tablet (Gemtesa) 75 mg PO DAILY 11/14/23 01/28/24 Allergies Allergy/AdvReac Type Severity Reaction Status Date / Time lisinopril AdvReac Intermediate Cough Verified 01/28/24 13:26 NSAIDS (Non-Steroidal AdvReac Kidney Verified 01/28/24 13:26 Anti-Inflamma damage Review of Systems Review of Systems: CONSTITUTIONAL: + body aches, fatigue EYES: Denies visual changes, redness, or discharge. ENT: Denies rhinorrhea, sore throat, or otalgia.+ congestion CARDIOVASCULAR: Denies chest pain, palpitations, or edema. RESPIRATORY: + cough, wheezing, shortness of breath GASTROINTESTINAL: Denies abdominal pain, nausea, vomiting, or diarrhea. GENITOURINARY: Denies dysuria or hematuria. SKIN: Denies rash, itching, or wounds. MUSCULOSKELETAL: Denies back pain, joint pain, or myalgia. NEUROLOGIC: Denies headache, numbness, tingling, or weakness. PSYCH: Denies depression or anxiety. [facility] Past Medical History Medical History Anxiety Asthma B12 deficiency CAD (coronary artery disease) Chronic back pain Depression Diabetes mellitus Currently diet controlled with A1c of 5.7% Fibromyalgia GERD (gastroesophageal reflux disease) Hypercholesterolemia Hypertension Hypokalemia Insomnia Kidney stones Left ventricular hypertrophy Nonischemic cardiomyopathy Cardiac catheterization 03/27/2021 with no evidence of coronary disease Cardiac MRI 2020 EF 45% Echocardiogram demonstrated LVH with grade 1 diastolic dysfunction last echo 2020 Obesity JENNIFER (obstructive sleep apnea) Not using CPAP since she is sleeping in recliner. Polysomnogram while sleeping in a recliner demonstrated index of 3.5 Recurrent nephrolithiasis RLS (restless legs syndrome) Syncope Systolic heart failure ef 45% Surgical History Surgical History H/O abdominal hysterectomy (~1994) Due to dysfunctional uterine bleeding H/O section X2 H/O elbow surgery right Nerve release History of cholecystectomy (~1986) History of hand surgery left hand 10/2019 History of Lakisha-en-Y gastric bypass History of total bilateral knee replacement Left September 2015 right December 2015 S/P implantation of urinary electronic stimulator device (~2007) Bladder stimulator placed in 2003 with subsequent removal 2014 Status post cataract extraction of both eyes with insertion of intraocular lens Status post open reduction with internal fixa
== END 2024-01-28 14:38 | disposition home or self-care (01) ==
PROVIDERS: Emergency Provider Nurse Practitioner; PCP Family Medicine
DX: J06.9 Acute upper respiratory infection, unspecified (principal); F12.90 Cannabis use, unspecified, uncomplicated; I25.10 Atherosclerotic heart disease of native coronary artery without angina pectoris; E11.9 Type 2 diabetes mellitus without complications; M79.7 Fibromyalgia; K21.9 Gastro-esophageal reflux disease without esophagitis; E78.00 Pure hypercholesterolemia, unspecified; G25.81 Restless legs syndrome; I11.0 Hypertensive heart disease with heart failure; I50.20 Unspecified systolic (congestive) heart failure; J45.909 Unspecified asthma, uncomplicated; D64.9 Anemia, unspecified; Z96.653 Presence of artificial knee joint, bilateral; Z96.1 Presence of intraocular lens; Z98.42 Cataract extraction status, left eye; Z98.41 Cataract extraction status, right eye
CPT/HCPCS: 99213; G0463

== ENCOUNTER 2024-04-25 09:30 | Outpatient (CLI) | payer MEDICARE, OTHER, SELFPAY ==
--- NOTE | ~2024-04-25 | XR_ITS ---
XR abdomen/kub 1V 04/25/2024 09:45 INDICATION: Kidney stone TECHNIQUE: KUB COMPARISON: Comparison to multiple prior studies sequentially, with oldest reviewed study dated 05/2024. FINDINGS: Bowel gas pattern is normal. Moderate colonic fecal loading. There is no evidence of free a ir, mass, organomegaly, ascites or obstruction. No abnormal calculi are seen. The bones appear inta ct. There are cholecystectomy clips. There is dextroscoliosis. IMPRESSION: 1: No acute abdominal abnormality identified. Reviewed, dictated and finalized at location B.
== END 2024-04-25 09:31 ==
PROVIDERS: PCP Family Medicine; Visit Provider Urology
DX: Z09 Encounter for follow-up examination after completed treatment for conditions other than malignant neoplasm (principal); Z87.442 Personal history of urinary calculi
CPT/HCPCS: 74018

== ENCOUNTER 2024-11-03 08:37 | Emergency (ER) | payer MEDICARE, SELFPAY ==
--- NOTE | 2024-11-03 08:46 | ED.URI ---
HPI - URI/Sore Throat General Chief Complaint: Upper Respiratory Infection Stated Complaint: Congestion/Wheezing Time Seen by Provider: 11/03/24 08:50 Source: patient, RN notes reviewed and old records reviewed Mode of arrival: ambulatory Limitations: no limitations History of Present Illness HPI Narrative: Patient with multiple comorbidities presents with complaints of cough and wheezing for 10 days. She reports the cough is becoming increasingly productive, wheezing is worse at night when she is lying down. She has been using albuterol with moderate relief. She does not believe that she has been running a fever, and she has no shortness of breath. She states that she believes all of this began with some nasal congestion at the onset of her illness. She reports that is mostly gone, but the chest congestion has gotten much worse the past couple of days. Related Data Home Medications ?Medication ?Instructions ?Recorded ?Confirmed ?Last Taken ?Type ferrous sulfate 325 mg (65 mg 325 mg PO DAILY 07/25/19 08/28/24 04/10/23 History iron) tablet arginine HCl (L-arginine) 1,000 mg 1,000 mg PO BID 09/26/21 08/28/24 04/10/23 History tablet budesonide 200 mcg/actuation 200 mcg inhalation BID asthma 04/10/23 08/28/24 04/10/23 History breath activated powder inhaler nitroglycerin 0.1 mg/hr 0.1 mg transdermal PRN PRN Chest 04/10/23 08/28/24 Unknown History transdermal 24 hour patch Pain sacubitril 24 mg-valsartan 26 mg 1 tablet PO DAILY 04/10/23 08/28/24 04/10/23 History tablet (Entresto) carvedilol 12.5 mg tablet (Coreg) 12.5 mg PO BID 09/18/23 08/28/24 10/05/23 History vibegron 75 mg tablet (Gemtesa) 75 mg PO DAILY 11/14/23 08/28/24 Unknown History duloxetine 60 mg capsule,delayed 120 mg PO DAILY 01/30/24 08/28/24 Unknown History release ropinirole 2 mg tablet 1 mg PO TID 03/17/24 08/28/24 Unknown History amantadine HCl 100 mg tablet 100 mg PO BID 08/28/24 08/28/24 Unknown History cholecalciferol (vitamin D3) 1,250 1,250 mcg PO WEEKLY 08/28/24 08/28/24 Unknown History mcg (50,000 unit) capsule Allergies Allergy/AdvReac Type Severity Reaction Status Date / Time lisinopril AdvReac Intermediate Cough Verified 11/03/24 09:01 NSAIDS (Non-Steroidal AdvReac Kidney Verified 11/03/24 09:01 Anti-Inflamma damage Review of Systems Review of Systems: All systems reviewed & are unremarkable except as noted in HPI and below Constitutional: Constitutional: Reports no additional constitutional complaints and Reports lethargy ENT: Reports system reviewed and no additional complaints, except as documented Cardiovascular: Cardiovascular: Reports no additional cardiovascular complaints Respiratory: Respiratory: Reports no additional respiratory complaints, Reports change in phlegm color, Reports chest congestion, Reports cough and Reports wheezing Gastrointestinal: Gastrointestinal: Reports no additional gastrointestinal complaints [facility] Past Medical History Medical History Upper respiratory infection Kidney stones Left renal stone Recurrent nephrolithiasis Sepsis UTI (urinary tract infection) Calculus of proximal left ureter Right upper quadrant abdominal pain Nonischemic cardiomyopathy Cardiac catheterization 03/27/2021 with no evidence of coronary disease Cardiac MRI 2020 EF 45% Echocardiogram demonstrated LVH with grade 1 diastolic dysfunction last echo 2020 Abnormal urinalysis Acute UTI Acute pancreatitis Hematuria Fracture of femur, distal, left, closed Fracture of left femur Leg swelling Chronic back pain Obesity JENNIFER (obstructive sleep apnea) Not using CPAP since she is sleeping in recliner. Polysomnogram while sleeping in a recliner demonstrated index of 3.5 Asthma CAD (coronary artery disease) Change in bowel habit Decreased hearing Systolic heart failure ef 45% Fall Left ventricular hypertrophy Depression GERD (gastroesophageal reflux disease) Hypercholesterolemia Insomnia Anxiety Fibromyalgia Syncope Hypokalemia Hypertension Diabetes mellitus Currently diet controlled with A1c of 5.7% RLS (restless legs syndrome) B12 deficiency Surgical History Surgical History Status post cataract extraction of both eyes with insertion of intraocular lens History of total bilateral knee replacement Left September 2015 right December 2015 Status post open reduction with internal fixation of fracture (07/2022) Left femur fracture History of Lakisha-en-Y gastric bypass S/P implantation of urinary electronic stimulator device (~2007) Bladder stimulator placed in 2003 with subsequent removal 2014 History of cholecystectomy (~1986) History of hand surgery left hand 10/2019 H/O abdominal hysterectomy (~1994) Due to dysfunctional uterine bleeding H/O section X2 H/O elbow surgery right Nerve release Family History Family History Sibling Diabetes mellitus Cardiomyopathy Mother , 66 years old Hypertension COPD (chronic obstructive pulmonary disease) Father Cardiomyopathy Social History Social History Social History: She lives with her of 46 years. They raised 2 sons. They have 4 grandsons. She has been on disability due to her fibromyalgia since 2009. 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 She is a lifelong nonsmoker and only drinks small amounts of alcohol very rarely. She did has use marijuana for her fibromyalgia. Code status: Full code Surrogate decision maker: Smoking status: Never smoker Alcohol intake: current Alcohol use details: very rarely Substance use: current Substance use type: marijuana Other substance usage details: medical marijuana as needed Do You Feel Safe in your Home?: Yes Lack of Transportation: No Lack of Food: Never True Current Housing: I Have Housing Concerned About Future Housing: No Difficulty Paying Gas/Electric Bills: No Difficulty Paying for Meds: No Currently Unemployed: No Education: Bachelor's Degree Difficulty w/ Childcare or Family Care: No Living arrangements: with family Gender identity (if verbalized by the patient): Female Sexual Orientation (if Verbalized by the Patient): Straight or Heterosexual Spiritual care concerns: No Comments At the time of my signature, I reviewed and agree with the nursing past medical, surgical, social, and family history. There is no relevant family history pertinent to the patient complaint. Exam Narrative: Patient with complex medical history presents with complaints of productive cough. She is not in any distress, reassuring physical exam. Unable to do x-ray today, will treat with doxycycline, prednisone burst, refill 0 butyrate all. Emergency department precautions discussed. Discharge instructions reviewed with patient, as well as provided in writing per nursing staff. The instructions also include specific and strict return/GO TO THE ER as well as f/u information. All questions have been answered, and the patient deny any further questions with discharge and discharge plan. Some parts of this dictation were generated by voice recognition software and may contain typographical and/or grammatical inaccuracies. Const: General: cooperative, no acute distress, alert and awake Orientation/consciousness: oriented to person, oriented to place and oriented to time HENMT: Head: normal to inspection Resp: Effort & Inspection: normal respiratory effort and able to speak in complete sentences Auscultation: clear to auscultation bilaterally, no crackles, no rales, no rhonchi and no wheezes Cardio: Palpation: normal PMI Rate: regular rate Rhythm: regular rhythm Heart sounds: S1 normal heart sound present and S2 normal heart sound present Neuro: General: oriented to person, oriented to place and oriented to time Cranial nerves: Yes CN's II-XII intact bilaterally Psych: Appearance: grossly normal Thought process: Normal thought process present Insight: Good insight present (Psych) Judgement: Good judgement present (Psych) Course Course Level of Care: Express Care Visit Vital Signs Vital signs: Reviewed Discharge Plan Discharge Clinical Impression: Bronchitis Patient Disposition: Home, Self-Care Condition: Stable Instructions: Antibiotic Form, Acute Bronchitis (ED) Additional Instructions: Take medications as prescribed. Follow with primary care provider. Emergency department for new or worsening symptoms. Please monitor blood sugar carefully, prednisone will elevate blood glucose Patient Language: Angolan Prescriptions: New doxycycline hyclate 100 mg capsule 100 mg PO BID 10 Days Qty: 20 0RF prednisone 50 mg tablet 50 mg PO DAILY Qty: 5 0RF albuterol sulfate [Ventolin HFA] 90 mcg/actuation HFA aerosol inhaler 2 puff inhalation QID PRN (Reason: shortness of breath or wheezing) Qty: 8.5 0RF No Action arginine HCl (L-arginine) 1,000 mg tablet 1,000 mg PO BID albuterol sulfate [Ventolin HFA] 90 mcg/actuation HFA aerosol inhaler 2 puff INHALATION Q4-6H PRN (Reason: Shortness Of Breath) Qty: 8.5 0RF Gemtesa 75 mg tablet 75 mg PO DAILY ropinirole 2 mg tablet 1 mg PO TID cyanocobalamin (vitamin B-12) 1,000 mcg/mL solution 1,000 mcg IM .[id number] Qty: 25 1RF ferrous sulfate 325 mg (65 mg iron) tablet 325 mg PO DAILY duloxetine 60 mg capsule,delayed release(DR/EC) 120 mg PO DAILY cholecalciferol (vitamin D3) 1,250 mcg (50,000 unit) capsule 1,250 mcg PO WEEKLY amantadine HCl 100 mg tablet 100 mg PO BID carvedilol [Coreg] 12.5 mg tablet 12.5 mg PO BID Entresto 24-26 mg tablet 1 tablet PO DAILY nitroglycerin 0.1 mg/hr patch 24 hour 0.1 mg transdermal PRN PRN (Reason: Chest Pain) budesonide 200 mcg/actuation Aerosol Powdr Breath Activated 200 mcg INHALATION BID (DME) BD Integra Syringe 3 mL 25 gauge x 1 syringe See Rx Instructions .ROUTE .MEDSUPPLY Qty: 50 0RF Rx Instructions: Use to inject B12 once monthly atorvastatin 40 mg tablet 40 mg PO QHS Qty: 90 3RF eszopiclone [Lunesta] 2 mg tablet 2 mg PO QHS Qty: 30 5RF cyclobenzaprine 10 mg tablet See Rx Instructions .ROUTE .COMPLEX Qty: 180 1RF Dose Instruction: 10 MG ORALLY TWICE A DAY NEEDED FOR MUSCLE SPASM Rx Instructions: 10 MG ORALLY TWICE A DAY NEEDED FOR MUSCLE SPASM pantoprazole 40 mg tablet,delayed release (DR/EC) 40 mg PO QAM Qty: 90 1RF gabapentin 300 mg capsule 300 mg PO TID Qty: 270 1RF Follow-up/Referrals: Aminah Garay DO [Primary Care Provider] - Time of Disposition: 09:06
[2024-11-03 08:55] VITALS: BP 118/74; PULSE 89; RESP 20; TEMP 36.7; O2SAT 99
[2024-11-03 09:05] VITALS: PULSE 89; RESP 20; O2SAT 99
== END 2024-11-03 09:30 | disposition home or self-care (01) ==
PROVIDERS: Emergency Provider Nurse Practitioner Family; PCP Family Medicine
DX: J40 Bronchitis, not specified as acute or chronic (principal); F12.90 Cannabis use, unspecified, uncomplicated; I42.8 Other cardiomyopathies; I11.0 Hypertensive heart disease with heart failure; I50.20 Unspecified systolic (congestive) heart failure; E11.9 Type 2 diabetes mellitus without complications; I25.10 Atherosclerotic heart disease of native coronary artery without angina pectoris; G47.33 Obstructive sleep apnea (adult) (pediatric); J45.909 Unspecified asthma, uncomplicated; K21.9 Gastro-esophageal reflux disease without esophagitis; E78.00 Pure hypercholesterolemia, unspecified; M79.7 Fibromyalgia; G25.81 Restless legs syndrome; E53.8 Deficiency of other specified B group vitamins
CPT/HCPCS: 99213; G0463

== ENCOUNTER 2024-11-12 10:17 | Outpatient (CLI) | payer MEDICARE, OTHER, SELFPAY ==
--- NOTE | 2024-11-12 | ECG_ITS ---
Test Date: 2024-11-12 11:06:38 Measurements Intervals [place] Rate: 85 P: 240 UT: 234 QRS: -51 QRSD: 93 T: 57 QT: 347 QTc: 414 Interpretive Statements ELECTRONIC ATRIAL PACEMAKER LOW QRS VOLTAGE IN PRECORDIAL LEADS [QRS DEFLECTION < 1.0 mV IN CHEST LEADS] LEFT ANTERIOR FASCICULAR BLOCK [QRS AXIS <= -45, QR IN I, RS IN II] POSSIBLE ANTERIOR MYOCARDIAL INFARCTION , PROBABLY OLD [30 ms Q WAVE IN V3/V4, OR R < 0.2 mV IN V4] INFERIOR INFARCT, OLD No previous ECG available for comparison Electronically Signed On 11-12-2024 15:49:25 MAILROOM CLERK by Fay Langley M.D.
[2024-11-12 11:26] LABS: Basophils Absolute Auto 0.1 K/mm3 (0.0-0.1); Basophils Percent Auto 0.8 % (0.2-1.2); Eosinophils Absolute Auto 0.4 K/mm3 (0-0.3); Eosinophils Percent Auto 4.3 % (0-4.4); Hematocrit 38.3 % (37.0-47.0); Hemoglobin 12.1 g/dL (12.0-15.0); Immature Granulocyte Absolute 0.14 K/mm3 (0.00-0.031); Immature Granulocyte Percent A 1.5 % (0-0.5); Lymphocytes Absolute Auto 1.57 K/mm3 (0.9-3.2); Lymphocytes Percent Auto 16.9 % (18.3-44.2); Mean Corpuscular HGB Conc 31.6 g/dl (32-36); Mean Corpuscular Hemoglobin 28.6 pg (26-34); Mean Corpuscular Volume 90.5 fl (80-100); Mean Platelet Volume 10.2 fl (7.4-10.4); Monocytes Absolute Auto 0.6 K/mm3 (0.1-0.6); Neutrophils Absolute Auto 6.5 K/mm3 (1.3-6.7); Neutrophils Percent Auto 70.5 % (45.5-73.1); Platelet Count Result 240 k/mm3 (150-375); Red Blood Count 4.23 M/mm3 (4.2-5.4); Red Cell Distribution Width 13.4 % (11.5-14.5); White Blood Count 9.3 K/mm3 (4.5-10.0)
--- OUTSIDE RECORDS SUMMARY | 2024-11-12 11:35 | XMS_ITS ---
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 Social History Sex Assigned At : Social History Observation Description Sex Assigned At Female Encounters Encounter Location Date Provider Diagnosis [facility] [address] [facility] [address] [place] [address] 10/07/2024 Thena Charissa Plan Of Treatment Next Appt Details Provider Name:Kika westfall, 11/19/2024 01:45:00 PM, [address], [facility] [address], [place], [address], Progress Notes * QUANG SPIVEYDOB:1955 (69 yo F)Acc No.[id number]:10/07/2024 Patient: Michael QUANG GOODSON :1955 A ge:69 Y S ex:Female Address:[address], [place], [address] * true * Date: Generated for Nirmalai ng/Fajoelg/eTransmitting on: 0 11/12/2024 11:35 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
--- OUTSIDE RECORDS SUMMARY | 2024-11-12 11:36 | XMS_ITS | Clinical Summary ---
Author Organization [facility] Address [address] [place] [address] Care Team Providers Care Market Consultant Name Role Phone Radha Mejia MD Unavailable [phone] Onel Joseph MD Unavailable [phone] Juan Novak MD Unavailable [phone] Aminah Garay DO Primary Care Provider + Allergies Active Allergy Reactions Criticality Noted Date Comments Nsaids (Non-Steroidal Anti-Inflammatory Drug) Other (See comments) High 05/17/2021 Acute renal failure Medications cholecalcifero l (VITAMIN D-3) 2,000 unit tablet Take 1 tablet (2,000 Units total) by mouth daily before breakfast Active cyclobenzaprin e (FLEXERIL) 10 mg tablet Take 1 tablet (10 mg total) by mouth 3 (three) times a day as needed for muscle spasms Active gabapentin (NEURONTIN) 300 mg capsule Take 1 capsule (300 mg total) by mouth 3 (three) times a day 1 9 Active rOPINIRole (REQUIP) 2 mg tablet Take 1 tablet (2 mg total) by mouth 3 (three) times a day 0 9 Active acetaminophen (TYLENOL) 325 mg tablet Take 2 tablets (650 mg total) by mouth every 6 (six) hours as needed for pain Active sertraline (ZOLOFT) 100 mg tablet TAKE 1 TABLET BY MOUTH ONCE DAILY IN THE MORNING FOR 30 DAYS 1 Active nitroglycerin (NITRODUR) 0.2 mg/hr 1 patch As needed 2 Active aspirin 81 mg enteric coated tablet Take 1 tablet (81 mg total) by mouth 2 (two) times a day 2 Active atorvastatin (LIPITOR) 40 mg tablet 2 Active arginine HCl, L-arginine, 1,000 mg tablet 1,000 mg 1 Active cyanocobalamin (Vitamin B-12) 1,000 mcg/mL injection See Instructions, Injection, 0, 1 mL IntraMuscular [id number], Instructions Replace Required Details 1 Active ferrous fumarate 325 mg (106 mg iron) tablet 1 tablet (325 mg total) 1 Active BD Integra Syringe 3 mL 25 gauge x 1 syringe USE TO INJECT B12 ONCE MONTHLY 2 Active sertraline (ZOLOFT) 50 mg tablet TAKE 1 TABLET BY MOUTH EVERY DAY ALONGWITH 100MG TO EQUAL 150MG DAILY [address] (CYMBALTA) 30 mg capsule 3 Active eszopiclone (LUNESTA) 2 mg tablet 3 Active albuterol HFA (PROVENTIL HFA,VENTOLIN HFA,PROAIR HFA) 90 mcg/actuation inhaler 2 PUFF INHALED EVERY 4 - 6 HOURS NEEDED FOR SHORTNESS OF BREATH 3 Active budesonide (Pulmicort Flexhaler) 180 mcg/actuation inhaler 1 puff(s), Inhalation, bid, 1 each, Inhaler, 0 3 Active carvediloL (COREG) 12.5 mg tablet 3 Active ergocalciferol (DrisdoL) 50,000 unit capsule 50,000 unit(s), 1 capsule(s), Oral, q7days, 12 capsule(s), Capsule(s), [address] (PROTONIX) 40 mg EC tablet Take 1 tablet (40 mg total) by mouth every morning 3 Active sulfamethoxazo le-trimethopri m (BACTRIM DS) 800-160 mg per tablet Take 1 tablet by mouth 2 (two) times a day 3 Active Active Problems Problem Noted Date Diagnosed Date Cardiomyopathy 10/30/2023 Osteopenia of neck of femur 10/04/2023 Overview (10/04/2023): Images from the original note were not included. Bone Health Rima 09/2023 Had traumatic distal femur fracture Low FRAX Assessment & Plan (10/04/2023 1:47 PM INTERIOR BLOCK WIRER): Conservative Rx Calcium and D After the essential part of today's visit, I again reviewed the patient's total calcium intake. We discussed that optimum calcium intake for bone health is critical. The total amount to achieve via diet (preferred) and supplements is 1000-1200mg daily, not more than this. We discussed different foods and accessories to make that goal realized. I referenced the handout in our brochure. I discussed how to maintain adequate Vitamin D levels best, and that is via supplementation, especially from until . Exercise and balance While the focus of the visit has been on bone strength-promoting treatments, we reviewed how balance (proprioception) serves as our s ixth sense. Improving balance plus strength-building exercises are, in my opinion, as important as medications to reduce the risk of fracture. I discussed and provided some straightforward and safe one-foot balance promotion exercises and demonstrated how to do these. Chest pain 09/26/2022 Acute pain due to trauma 07/31/2022 ABLA (acute blood loss anemia) 07/31/2022 Depression with anxiety 07/31/2022 COVID 07/31/2022 Closed fracture of left femu r, unspecified fracture morphology, unspecified portion of femur, initial encounter 07/28/2022 Closed fracture of femur 07/27/2022 Overview (07/28/2022): Added automatically from request for surgery [id number] Diastolic dysfunction 03/24/2022 Primary hypertension 08/24/2021 Assessment & Plan (08/29/2021 3:01 PM INTERIOR BLOCK WIRER): -Will continue same antihypertensive medications at this time. Has immunity to COVID-19 virus 05/18/2021 Overview (09/18/2022): Pfizer vaccine x 3, Moderna booster. COVID Jun 2022 Assessment & Plan (09/18/2022 7:55 AM INTERIOR BLOCK WIRER): Fully vaccinated and Hx COVID Jun 2022 Assessment & Plan (02/26/2022 12:40 PM CDT): Fully vaccinated, eligible for booster. Assessment & Plan (11/11/2021 9:33 AM INTERIOR BLOCK WIRER): Fully vaccinated Arthritis of carpometacarpal (CMC) joint of righ t thumb 11/19/2020 Overview (11/19/2020): Added automatically from request for surgery [id number] Nephrolithiasis 09/10/2015 Overview (05/17/2021): passed some on own and lithotripsy. No recurrence since Assessment & Plan (09/20/2022 12:48 PM INTERIOR BLOCK WIRER): Needs careful monitoring of her vitamin-D status. Also on hydrochlorothiazide which helps to reduce her urinary calcium excretion Assessment & Plan (03/02/2022 11:31 AM CDT): No recent symptoms, maintaining adequate hydration Assessment & Plan (11/15/2021 8:35 AM INTERIOR BLOCK WIRER): No recent Sx. Assessment & Plan (05/19/2021 8:42 AM CDT): No recent symptoms or history of recurrence. Restless legs syndrome 06/04/2014 Overview (12/15/2016): Restless legs syndrome Type 2 diabetes mellitus, wi thout long-term current use of insulin Overview (05/18/2021): dxd fall 2018 Assessment & Plan (09/20/2022 12:45 PM INTERIOR BLOCK WIRER): Clinically doing very well with diet and lifestyle, so no need to add medication at this time Assessment & Plan (03/02/2022 11:31 AM CDT): Glucoses now well controlled, off medication, with significant benefits from diet and lifestyle Assessment & Plan (11/15/2021 8:35 AM INTERIOR BLOCK WIRER): She has not been testing glucoses, so needs to do so. Also needs f/u labs. Assessment & Plan (08/29/2021 3:02 PM INTERIOR BLOCK WIRER): -Currently taking metformin and Ozempic -A1C in May 2021 was 7.1% -Home glucose readings are checked periodically with readings in the low 100s. -She has lost 15 pounds and is planning to join [employer] after the first of the year. -Activity is currently limited due to episodes of tachycardia; having MRI of the heart next week. Before School is at [employer] [employer] [employer] [facility] [employer] [facility]. -Advised to call with any concerns/complaints regarding glucose readings -Eye exam is up to date Assessment & Plan (05/19/2021 8:42 AM CDT): Has some diarrhea from metformin, so will change to metformin ER to see if better tolerated. Also would benefit from SGLT-2 inhibitor therapy, which will also help with weight reduction as well as improve renal and cardiovascular risk. Cautioned about potential dehydration. Mixed hyperlipidemia Overview (05/17/2021): Treated with statin Assessment & Plan (09/20/2022 12:45 PM INTERIOR BLOCK WIRER): Continue statin, diet and lifestyle. Optimal glycemic control Assessment & Plan (03/02/2022 11:31 AM CDT): Continue statin, diet and lifestyle Assessment & Plan (11/15/2021 8:35 AM INTERIOR BLOCK WIRER): Continue statin, review diabetic control/labs. Assessment & Plan (08/29/2021 3:01 PM INTERIOR BLOCK WIRER): -Will continue statin as it is being tolerated without side effects Assessment & Plan (05/19/2021 8:43 AM CDT): Continue statin, optimize glycemic control DISH (diffuse idiopathic skeletal hyperostosis) Overview (09/18/2022): no meds Assessment & Plan (09/20/2022 12:46 PM INTERIOR BLOCK WIRER): Although this requires no medication, she has a history of fracture. His diagnoses may cause a false normalization of her measured bone density. Now, would check her vitamin-D with next scheduled lab work and consider referral to the bone health program Resolved Problems Problem Noted Date Diagnosed Date Resolved Date Arthritis of carpometacarpal (CMC) joint of left thumb 10/17/2019 05/18/2021 Overview (10/17/2019): Added automatically from request for surgery [id number] Immunizations Immunization Administration Dates Next Due DTaP 02/23/2022 Influenza, Quad, Adjuvantate d, Intramuscular 07/14/2022 Influenza, Quadrivalent, Spl it, Intramuscular 07/28/2020 Influenza, Quadrivalent, Spl it, Preservative Free, Intramuscular 09/12/2019,05/28/2018,06/13/2017,06/15 Influenza, Trivalent, IM (MDV) 07/10/2015,2013 Influenza, Unspecified 06/10/2021 Pfizer SARS-CoV-2 Monovalent Vaccination (12+ Yrs) PURPLE 12/04/2020,11/11/2020 Pneumococcal Conjugate PCV 13 06/15/2016 Pneumococcal Conjugate Pcv20 02/23/2022,02/24/20 22 Pneumococcal Polysaccharide PPV23 02/23/2022 Tdap 02/23/2022,09/11/2009 ZOSTER Recombinant 06/14/2022,03/21/2022 Surgical History Surgery Date Site/Laterality Comments GASTRIC BYPASS 09/10/2007 - 09/09/2008 REDUCTION MAMMOPLASTY 09/10/2004 - 09/09/2005 Bilateral HYSTERECTOMY 09/10/1994 - 09/09/1995 CHOLECYSTECTOMY 09/10/1996 - 09/09/1997 JOINT REPLACEMENT 09/2015 &12/2015 Bilateral knees CYSTOSCOPY W/ LASER LITHOTRIPSY 09/10/2011 - 09/09/2012 kidney stones: lithotripsy THUMB SURGERY 10/11/2019 - 11/08/2019 Left LITHOTRIPSY 09/10/2011 - 09/09/2012 ULNAR NERVE TRANSPOSITION 1989/1990/ 1991 Right ulnar and radial nerve releaseand tendon repair BLADDER SURGERY Early bladder incontinence (resolved): interstim stimulator placed. Battery now .& removed BLADDER SUSPENSION Late COLONOSCOPY Multiple-- Last ~2010 UPPER GASTROINTESTINAL ENDOSCOPY 09/10/2007 - 09/09/2008 MOHS SURGERY 10/11/2013 - 11/07/2013 Right ear Medical History Medical History Date Comments Adiposity obesity Primary fibromyalgia syndrome Dx d ~--well controlled with meds Insomnia well controlled with meds Restless legs syndrome well cont rolled with meds DISH (diffuse idiopathic ske letal hyperostosis) no meds Anxiety well controlled with meds B12 deficiency well controlled with meds, due to gastric bypass Hypertension well controlled with meds Hypercholesterolemia Treated wit h statin Depression well controlled with meds Anemia well controlled with meds Arthritis PONV (postoperative nausea and vomiting) Syncope 04/2019 secondary to deh ydration. cardiac w/u negative. Denies any recurrence OAB (overactive bladder) Morbid obesity (HCC) Motion sickness Occasional car s ickness Sleep apnea Stop using CPAP machine ~2008 after weight loss but never had repeat study done and has gained most of weight back History of basal cell carcinoma of skin Right ear s/p MOHS 10/2013 Family History Medical History Relation Name Comments Diabetes Brother Diabetes mellit us; Cancer Father Family history of malignant neoplasm - (Added by TW Conv) Colon cancer Father Cancer, colon; Arthritis Mother Family history of arthritis - (Added by TW Conv) Hypertension Mother Hypertension; / Family history of hypertension - (Added by TW Conv) Lung disease Mother Family history of lung disease - (Added by TW Conv) Mental illness Mother Chronic menta l illness - (Added by TW Conv) Other Other 1 No family histo ry of restless leg syndrome; Cancer Other 2 Family history of malignant neoplasm - (Added by TW Conv) Diabetes Other 3 Family history of diabetes mellitus - (Added by TW Conv) Diabetes type II Other 4 Maternal aunt Diabetes Sister 1 Family history of diabetes mellitus - (Added by TW Conv) Mental illness Sister 2 Chronic menta l illness - (Added by TW Conv) Alcohol abuse Son Family history of alcoholism - (Added by TW Conv) Anesthesia problems Neg Hx Relation Name Status Comments Brother Father Mother Other 1 Other 2 Other 3 Other 4 Maternal aunt Alive Sister 1 Sister 2 Son Social History Tobacco Use Types Packs/Day Years Used Date Smoking Tobacco: Never Smokeless Tobacco: Never Alcohol Use Standard Drinks/Week Comments Yes 0 (1 standard drink = 0.6 oz pur e alcohol) rare-1x/year AUDIT-C Answer Date Recorded Q1: How often do you have a drink containing alc ohol? Never 03/09/2021 Average Number of Drinks Not on file 021 Q3: How often do you have si x or more drinks on one occasion? Never 03/09/2021 Comments No Sex and Gender Information Value Date Recorded Sex Assigned at Not on file Legal Sex Female 1:19 AM INTERIOR BLOCK WIRER Gender Identity Female 08/24/2021 8:22 PM INTERIOR BLOCK WIRER Sexual Orientation Straight 08/24/2021 8: 22 PM INTERIOR BLOCK WIRER Obstetrics History Last Filed Vital Signs Vital Sign Reading Time Taken Comments Blood Pressure 117/76 09/18/2022 2:57 PM INTERIOR BLOCK WIRER Pulse 72 09/18/2022 2:57 PM INTERIOR BLOCK WIRER Temperature 36.6 C (97.8 F) 09/18/2022 2:57 PM INTERIOR BLOCK WIRER Respiratory Rate 18 09/15/2022 2:20 PM INTERIOR BLOCK WIRER S po2 100% Oxygen Saturation 100% 08/04/2022 11:44 AM INTERIOR BLOCK WIRER Inhaled Oxygen Concentration - - Weight 101.2 kg (223 lb) 10/30/2023 9:57 AM INTERIOR BLOCK WIRER Height 163.8 cm (5' 4.5 ) 10/30/2023 9:57 AM INTERIOR BLOCK WIRER Body Mass Index 37.69 10/30/2023 9:57 AM INTERIOR BLOCK WIRER Plan of Treatment Health Maintenance Due Date Last Done Comments Albumin Creatinine Ratio, Urine 1955 Breast Cancer Screening-Mammogram 1955 Colon Cancer Screening-Colonoscopy 1955 Depression Screening 1955 Hepatitis C Screening 1955 Dilated Eye Exam 1955 Foot Exam 1955 Lipid Panel 1955 Hepatitis B Screening 1974 Well Visit 65+ 2021 Hemoglobin A1C 03/18/2023 04/17/2024, 05/0 04/2024, 09/18/2022, Additional history exists eGFR 08/03/2023 08/03/2022, 07/12, 07/29/2022, Additional history exists Fall Risk Assessment 08/04/2023 08/04/2022 Covid-19 Vaccine (5 - 2023-2 5 season) 2024 07/13/2022, 05/18/2021, 12/04/2020, Additional history exists Influenza Vaccine (#1) 2024 , 06/10/2021, 07/28/2020, Additional history exists Osteoporosis Screening-Bone Density Scan 10/04/2025 10/04/2023 DTaP/Tdap/Td Vaccine (4 - Td or Tdap) 02/24/2032 02/23/2022, 02/23/2022, 09/11/2009 Pneumococcal vaccine 65+ Completed 022, 02/23/2022, 02/23/2022, Additional history exists Zoster Vaccine Completed 06/14/2022, 03/21/2022 Medical Devices Implanted Type Area Residence Supervisor Device Identifier Shelf Expiration Date Model / Serial / Lot [employer] Ar-8978-Cp Internalbrace Kit Hand Wrist Set Implant Ligament Augmentation - [id number] Implanted:Qty: 1 on 11/03/2019 by Anjel Vail MD at [facility] Left: Wrist [employer] 08/09/2024 AR-8978-CP / / [id number] [employer] Ar-8978-Cp Internalbrace Kit Hand Wrist Set Implant Ligament Augmentation - [id number] Implanted:Qty: 1 on 03/21/2021 by Anjel Vail MD at [facility] Right: Wrist [employer] 01/07/2026 AR-8978-CP / / [id number] Synthes 3.5mm 65mm Self Tap Lock Variable Angle Stardrive T15 Screw Bone 02.127.165 - [id number] Implanted:Qty: 2 on 07/28/2022 by Viola Baez MD at [facility] Left: Femur Synthes I 02.127.165 / / Screw Locking Im Nail 5mm 38mm - [id number] Implanted:Qty: 1 on 07/28/2022 by Viola Baez MD at [facility] Left: Femur Synthes I 04.045.038 / / Synthes Screw Locking Im Nail 5mm 34mm 04.045.034 - [id number] Implanted:Qty: 1 on 07/28/2022 by Viola Baez MD at [facility] Left: Femur Synthes I 04.045.034 / / Synthes Screw Locking Im Nail 5mm 30mm 04.045.030 - [id number] Implanted:Qty: 1 on 07/28/2022 by Viola Baez MD at [facility] Left: Femur Synthes I 04.045.030 / / Synthes Screw Locking Im Nail 5mm 32mm 04.045.032 - [id number] Implanted:Qty: 1 on 07/28/2022 by Viola Baez MD at [facility] Left: Femur Synthes I 04.045.032 / / Synthes Nail Retrograde Fem 10mm 380mm 5 Deg Bend Titanium Sterile 04.233.038s - [id number] Implanted:Qty: 1 on 07/28/2022 by Viola Baez MD at [facility] Left: Femur Synthes I 04.233.038 S / / Synthes Washer Left Lock Attachment 10d Ortho Rfna Strl 02.233.105s - [id number] Implanted:Qty: 1 on 07/28/2022 by Viola Baez MD at [facility] Left: Femur Synthes I 02.233.105 S / / Synthes Screw Locking Im Nail 5mm 68mm 04.045.068 - [id number] Implanted:Qty: 1 on 07/28/2022 by Viola Baez MD at [facility] Left: Femur Synthes I 04.045.068 / / Screw Locking Im Nail 5mm 56mm - [id number] Implanted:Qty: 1 on 07/28/2022 by Viola Baez MD at [facility] Left: Femur Synthes I 04.045.056 / / Synthes Screw Bone 5mm [address] Opt[address] Varangl Strdrv 42.231.255 - [id number] Implanted:Qty: 1 on 07/28/2022 by Viola Baez MD at [facility] Left: Femur Synthes I 42.231.255 / / Screw Bone 5.0mm 80mm Optilink Tm - [id number] Implanted:Qty: 1 on 07/28/2022 by Viola Baez MD at [facility] Left: Femur Synthes I 42.231.280 / / Synthes Screw 3.5mm 58mm Bone Stainless Steel T15 Strdrv Rces Lkng 158 - [id number] Implanted:Qty: 1 on 07/28/2022 by Viola Baez MD at [facility] Left: Femur Synthes I 158 / / Procedures Procedure Name Priority Date/Time Associated Diagnosis Comments DEXA TBS AXIAL SKELETON BONE DENSITY 1 OR MORE SITES Schedule Routine, Read Routine (OP Routine) 10/04/2023 12:49 PM INTERIOR BLOCK WIRER Osteoporosis, unspecified osteoporosis type, unspecified pathological fracture presence POCT HEMOGLOBIN A1C Routine 09/18/2022 3:03 PM INTERIOR BLOCK WIRER Type 2 diabetes mellitus without complication, without long-term current use of insulin (HCC) EGFR Routine 08/03/2022 5:56 AM INTERIOR BLOCK WIRER from Last 3 Months or Most Recently Relevant to Health Maintenance Results * Dexa TBS Axial Skeleton Bone Density 1 or more sites (10/04/2023 12:49 PM INTERIOR BLOCK WIRER) Anatomical Region Laterality Modality Wrist, Body N/A Radiographic Grisel ging Narrative 10/10/2023 12:09 PM INTERIOR BLOCK WIRER Patient Name: La Spivey Date of : 1955 Date of scan: 10/04/2023 Bone mineral density was performed on a [employer] Discovery Densitometer. Based on machine cross-calibration and precision studies the least significant changes of this densitometer is 0.024 g/cm2 at the spine, 0.020 g/cm2 at the total proximal femur, and 0.014g/cm2 at the forearm. HISTORY: This is a 68 y.o. postmenopausal female with a history of asthma and vitamin D deficiency. She reports that she has never smoked. She has never used smokeless tobacco. previously treated with diuretics and current complaint of back pain and neck pain. INDICATIONS: Menopause status and vitamin D deficiency. FINDINGS: BONE MINERAL DENSITY OF THE LUMBAR SPINE Bone Mineral Density (BMD) of the lumbar spine was measured from L1-L4 and the average density was calculated to be 1.316 gm/cm2. This corresponds to a T-score (standard deviations from the mean of young adults) of 2.4. There is no previous study available for comparison. BONE MINERAL DENSITY OF THE PROXIMAL FEMUR Bone Mineral Density (BMD) of the right hip total was found to be 0.897 gm/cm2. This corresponds to a T-score standard deviations from the mean of young adults of -0.4. Femoral neck is 0.665 gm/cm2 with a T-score (standard deviations from the mean of young adults) of -1.7. There is no previous study available for comparison. SUMMARY: Bone mineral density shows evidence of low bone mass at the proximal femur and moderately increased fracture risk (Osteopenia). The lumbar spine Trabecular Bone Score is 1.178 which suggests degraded bone microarchitecture compared to the general population. Final decisions regarding diagnostic or therapeutic recommendations should include BMD, TBS, additional clinical risk factors as well the clinical context of the patient. Please see attached TBS results for further details. ADDITIONAL COMMENTS: Postmenopausal Women and Men Over 50: Diagnostic criteria: Osteoporosis: BMD at or below -2.5 T-score; Osteopenia (low bone mass): BMD between -1.0 and -2.5 T-score. If the patient has a history of a fragility fracture, a fracture that occurred with trauma equivalent to a fall from a standing position or less, then the diagnosis is osteoporosis regardless of bone density. The history and data sections of the bone mineral density scan were prepared by Latricia Kee) MAHAD who is accredited by the International Society of Clinical Densitometry. The overall patient assessment and scan interpretation were performed by George Witt M.D. who is certified by the International Society of Clinical Densitometry. [id number] us George Witt MD IMG DXA PROCEDURES Final Resul t * POCT hemoglobin A1c (09/18/2022 3:03 PM INTERIOR BLOCK WIRER) Hemoglobin A1C, POC 5.4 Blood 09/18/2022 3:03 PM INTERIOR BLOCK WIRER us Radha Mejia MD POINT OF CARE TEST ORDERABL ES Final Result * (ABNORMAL) eGFR (08/03/2022 5:56 AM INTERIOR BLOCK WIRER) eGFR 67(L) 90 - 130 mL/min/1. 73 m2 [facility] Comment: Interpretive Data Reference Interval Normal >/= 90 mL/min/1.73m2 Mildly decreased* 60 - 89 mL/min/1.73m2 Mildly to moderately decreased 45 - 59 mL/min/1.73m2 Moderately to severely decreased 30 - 44 mL/min/1.73m2 Severely decreased 15 - 29 mL/min/1.73m2 Kidney Failure < 15 mL/min/1.73m2 *Relative to young adult level Estimated glomerular filtration rate is determined by the 2020 CKD-EPI equation recommended by the National Kidney Foundation (A Unifying Approach to GFR Estimation: Recommendations of the NKF-ASK Task Force on Reassessing the Inclusion of Race in Diagnosing Kidney Disease, JASN 2020). The CKD-EPI equation should not be used for patients with unstable renal function and has not been validated in children and those over 70. Current interpretive data was last reviewed 2021. Blood 08/03/2022 5:56 AM INTERIOR BLOCK WIRER 08/03/2022 6:11 AM INTERIOR BLOCK WIRER us Magda Resendez NP LAB BLOOD ORDERABLES Final Res ult [facility] Department [place] [address] from Last 3 Months or Most Recently Relevant to Health Maintenance Insurance MEDICARE [facility] [place] [address] MEDICARE [facility] MEDICARE [facility] Advance Directives For more information, please contact: [phone] * Full Code (Latest Code Status on File) Date Activated Date Inactivated Comments 07/28/2022 5:37 PM 08/04/2022 7:55 PM * Full Code Date Activated Date Inactivated Comments 07/28/2022 5:36 PM 07/28/2022 5:37 PM Care Teams Market Consultant Relationship Specialty Start Date End Date Aminah Garay DO [address] [place] [address] [address] [place] [address] PCP - General Family Medicine 02/28/22 Radha Mejia MD Referring Physician Endocrinology Diabetes & Metabolism 05/17/21 Onel Joseph MD [address] [facility] [address] [place] [address] Consulting Physician Urology 05/17/21 Juan Novak MD [address] [address] [address] [place] [address] Referring Physician Cardiovascular Disease 11/15/21
--- OUTSIDE RECORDS SUMMARY | 2024-11-12 11:36 | XMS_ITS | Referral Summary ---
Author Organization [facility] Address [address] [place] [address] Care Team Providers Care Paper Stripper Name Role Phone Radha Mejia MD Unavailable [phone] Onel Joseph MD Unavailable [phone] Juan Novak MD Unavailable Aminah Garay DO Primary Care Provider + [...] See Instructions, Injection, 0, 1 mL IntraMuscular [id number], Instructions Replace Required Details 1 Active ferrous [...] FRAX Assessment & Plan (10/04/2023 1:47 PM [employer] MERCHANDISER): Conservative Rx Calcium and D After the [...] (07/28/2022): Added automatically from request for surgery [id number] Diastolic dysfunction 03/24/2022 Primary hypertension 08/24/2021 Assessment & Plan (08/29/2021 3:01 PM [employer] MERCHANDISER): -Will continue same antihypertensive medications at this time. Has immunity to COVID-19 virus 05/18/2021 Overview (09/18/2022): Pfizer vaccine x 3, Moderna booster. COVID Jun 2022 Assessment & Plan (09/18/2022 7:55 AM [employer] SERVICE MERCHANDISER): Fully vaccinated and Hx COVID Jun 2022 Assessment & Plan (02/26/2022 12:40 PM CDT): Fully vaccinated, eligible for booster. Assessment & Plan (11/11/2021 9:33 AM [employer] SERVICE MERCHANDISER): Fully vaccinated Arthritis of carpometacarpal (CMC) joint of righ t thumb 11/19/2020 Overview (11/19/2020): Added automatically from request for surgery [id number] Nephrolithiasis 09/10/2015 Overview (05/17/2021): passed some on own and lithotripsy. No recurrence since Assessment & Plan (09/20/2022 12:48 PM [employer]ICE MERCHANDISER): Needs careful monitoring of her vitamin-D status. Also on hydrochlorothiazide which helps to reduce her urinary calcium excretion Assessment & Plan (03/02/2022 11:31 AM CDT): No recent symptoms, maintaining adequate hydration Assessment & Plan (11/15/2021 8:35 AM [employer] MERCHANDISER): No recent Sx. Assessment & Plan (05/19/2021 8:42 AM CDT): No recent symptoms or history of recurrence. Restless legs syndrome 06/04/2014 Overview (12/15/2016): Restless legs syndrome Type 2 diabetes mellitus, wi thout long-term current use of insulin Overview (05/18/2021): dxd fall 2018 Assessment & Plan (09/20/2022 12:45 PM [employer] MERCHANDISER): Clinically doing very well with diet and lifestyle, so no need to add medication at this time Assessment & Plan (03/02/2022 11:31 AM CDT): Glucoses now well controlled, off medication, with significant benefits from diet and lifestyle Assessment & Plan (11/15/2021 8:35 AM [employer] MERCHANDISER): She has not been testing glucoses, so needs to do so. Also needs f/u labs. Assessment & Plan (08/29/2021 3:02 PM [employer] SERVICE MERCHANDISER): -Currently taking metformin and Ozempic -A1C in May 2021 was 7.1% -Home glucose readings are checked periodically with readings in the low 100s. -She has lost 15 pounds and is planning to join [employer] after the first of the year. -Activity is currently limited due to episodes of tachycardia; having MRI of the heart next week. 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 -Advised to call with any concerns/complaints regarding [...] statin Assessment & Plan (09/20/2022 12:45 PM [employer]ICE MERCHANDISER): Continue statin, diet and lifestyle. Optimal glycemic control Assessment & Plan (03/02/2022 11:31 AM CDT): Continue statin, diet and lifestyle Assessment & Plan (11/15/2021 8:35 AM [employer] SERVICE MERCHANDISER): Continue statin, review diabetic control/labs. Assessment & Plan (08/29/2021 3:01 PM [employer] SERVICE MERCHANDISER): -Will continue statin as it is being tolerated without side effects Assessment & Plan (05/19/2021 8:43 AM CDT): Continue statin, optimize glycemic control DISH (diffuse idiopathic skeletal hyperostosis) Overview (09/18/2022): no meds Assessment & Plan (09/20/2022 12:46 PM [employer] SERVICE MERCHANDISER): Although this requires no medication, she has [...] (10/17/2019): Added automatically from request for surgery [id number] Immunizations Immunization Administration Dates Next Due DTaP 02/23/2022 Influenza, Quad, Adjuvantate d, Intramuscular 07/14/2022 Influenza, Quadrivalent, Spl it, Intramuscular 07/28/2020 Influenza, Quadrivalent, Spl it, Preservative Free, Intramuscular 09/12/2019,05/28/2018,06/13/2017,06/15 Influenza, Trivalent, IM (MDV) 07/10/2015,2013 Influenza, Unspecified 06/10/2021 Pfizer SARS-CoV-2 Monovalent Vaccination (12+ Yrs) PURPLE 12/04/2020,11/11/2020 Pneumococcal Conjugate PCV 13 06/15/2016 Pneumococcal Conjugate Pcv20 02/23/2022,02/24/20 22 Pneumococcal Polysaccharide PPV23 02/23/2022 Tdap 02/23/2022,09/11/2009 ZOSTER Recombinant 06/14/2022,03/21/2022 Social History Tobacco Use Types Packs/Day Years [...] on file Legal Sex Female 1:19 AM [employer] MERCHAND[employer]ER Gender Identity Female 08/24/2021 8:22 PM [employer] MERCHAND[employer]ER Sexual Orientation Straight 08/24/2021 8: 22 PM [employer] MERCHANDISER Last Filed Vital Signs Vital Sign Reading Time Taken Comments Blood Pressure 117/76 09/18/2022 2:57 PM [employer] MERCHAND[employer]ER Pulse 72 09/18/2022 2:57 PM [employer] MERCHANDISER Temperature 36.6 C (97.8 F) 09/18/2022 2:57 PM [employer]ICE MERCHANDISER Respiratory Rate 18 09/15/2022 2:20 PM [employer]ICE MERCHANDISER S po2 100% Oxygen Saturation 100% 08/04/2022 11:44 AM [employer]ICE MERCHANDISER Inhaled Oxygen Concentration - - Weight 101.2 kg (223 lb) 10/30/2023 9:57 AM [employer] MERCHANDISER Height 163.8 cm (5' 4.5 ) 10/30/2023 9:57 AM [employer] MERCHAND[employer]ER Body Mass Index 37.69 10/30/2023 9:57 AM [employer]ICE MERCHANDISER Plan of Treatment Not on file Medical Devices Implanted Type Area Airborne Operations Device Identifier Shelf Expiration Date Model / Serial / Lot [employer] Ar-8978-Cp Internalbrace Kit Hand Wrist Set Implant Ligament Augmentation - [id number] Implanted:Qty: 1 on 11/03/2019 by Anjel Vail MD at [facility] Left: Wrist [employer] 08/09/2024 AR-8978-CP / / [id number] [employer] Ar-8978-Cp Internalbrace Kit Hand Wrist Set Implant Ligament Augmentation - [id number] Implanted:Qty: 1 on 03/21/2021 by Anjel Vail MD at [facility] Right: Wrist [employer] 01/07/2026 AR-8978-CP / / [id number] Synthes 3.5mm 65mm Self Tap Lock Variable Angle Stardrive T15 Screw Bone 02.127.165 - [id number] Implanted:Qty: 2 on 07/28/2022 by Viola Baez MD at [facility] Left: Femur Synthes I 02.127.165 / / Screw Locking Im Nail 5mm 38mm - [id number] Implanted:Qty: 1 on 07/28/2022 by Viola Baez MD at [facility] Left: Femur Synthes I 04.045.038 / / Synthes Screw Locking Im Nail 5mm 34mm 04.045.034 - [id number] Implanted:Qty: 1 on 07/28/2022 by Viola Baez MD at [facility] Left: Femur Synthes I 04.045.034 / / Synthes Screw Locking Im Nail 5mm 30mm 04.045.030 - [id number] Implanted:Qty: 1 on 07/28/2022 by Viola Baez MD at [facility] Left: Femur Synthes I 04.045.030 / / Synthes Screw Locking Im Nail 5mm 32mm 04.045.032 - [id number] Implanted:Qty: 1 on 07/28/2022 by Viola Baez MD at [facility] Left: Femur Synthes I 04.045.032 / / Synthes Nail Retrograde Fem 10mm 380mm 5 Deg Bend Titanium Sterile 04.233.038s - [id number] Implanted:Qty: 1 on 07/28/2022 by Viola Baez MD at [facility] Left: Femur Synthes I 04.233.038 S / / Synthes Washer Left Lock Attachment 10d Ortho Rfna Strl 02.233.105s - [id number] Implanted:Qty: 1 on 07/28/2022 by Viola Baez MD at [facility] Left: Femur Synthes I 02.233.105 S / / Synthes Screw Locking Im Nail 5mm 68mm 04.045.068 - [id number] Implanted:Qty: 1 on 07/28/2022 by Viola Baez MD at [facility] Left: Femur Synthes I 04.045.068 / / Screw Locking Im Nail 5mm 56mm - [id number] Implanted:Qty: 1 on 07/28/2022 by Viola Baez MD at [facility] Left: Femur Synthes I 04.045.056 / / Synthes Screw Bone 5mm 55mm Optil[address] St Varangl Strdrv 42.231.255 - [id number] Implanted:Qty: 1 on 07/28/2022 by Viola Baez MD at [facility] Left: Femur Synthes I 42.231.255 / / Screw Bone 5.0mm 80mm Optilink Tm - [id number] Implanted:Qty: 1 on 07/28/2022 by Viola Baez MD at [facility] Left: Femur Synthes I 42.231.280 / / Synthes Screw 3.5mm 58mm Bone Stainless Steel T15 Strdrv Rces Lkng 158 - [id number] Implanted:Qty: 1 on 07/28/2022 by Viola Baez MD at [facility] Left: Femur Synthes I / / Procedures Procedure Name Priority Date/Time Associated Diagnosis Comments DEXA TBS AXIAL SKELETON BONE DENSITY 1 OR MORE SITES Schedule Routine, Read Routine (OP Routine) 10/04/2023 12:49 PM [employer]ICE MERCHANDISER Osteoporosis, unspecified osteoporosis type, unspecified pathological fracture presence POCT HEMOGLOBIN A1C Routine 09/18/2022 3:03 PM [employer] SERVICE MERCHANDISER Type 2 diabetes mellitus without complication, without long-term current use of insulin (HCC) EGFR Routine 08/03/2022 5:56 AM [employer]AIL SERVICE MERCHANDISER from Last 3 Months or Most Recently Relevant to Health Maintenance Results * Dexa TBS Axial Skeleton Bone Density 1 or more sites (10/04/2023 12:49 PM [employer] RETAIL SERVICE MERCHANDISER) Anatomical Region Laterality Modality Wrist, Body N/A Radiographic Grisel ging Narrative 10/10/2023 12:09 PM [employer] SERVICE MERCHANDISER Patient Name: La Heck Date of : 1955 Date of scan: 10/04/2023 Bone mineral density was performed on a Assembly Discovery Densitometer. Based on machine cross-calibration and [...] by the International Society of Clinical Densitometry. [id number] us George iWtt MD IMG DXA PROCEDURES Final Resul t * POCT hemoglobin A1c (09/18/2022 3:03 PM [employer] RET[employer] SERVICE MERCHANDISER) Hemoglobin A1C, POC 5.4 Blood 09/18/2022 3:03 PM [employer] SERVICE MERCHANDISER us Radha Mejia MD POINT OF CARE TEST ORDERABL ES Final Result * (ABNORMAL) eGFR (08/03/2022 5:56 AM [employer] RETAIL SERVICE MERCHANDISER) eGFR 67(L) 90 - 130 mL/min/1. 73 m2 [facility] Comment: Interpretive Data Reference Interval Normal [...] last reviewed 2021. Blood 08/03/2022 5:56 AM IMP[employer] RETAIL SERVICE MERCHANDISER 08/03/2022 6:11 AM [employer] RET[employer] SERVICE MERCHANDISER us Magda Resendez NP LAB BLOOD ORDERABLES Final Res ult [facility] Department [place] [address] from Last 3 Months or Most Recently Relevant to Health Maintenance Insurance MEDICARE [employer] [address] MEDICARE [employer] MEDICARE [facility] Advance Directives For more information, please contact: [phone] * Full Code (Latest Code Status on File) Date Activated Date Inactivated Comments 07/28/2022 5:37 PM 08/04/2022 7:55 PM * Full Code Date Activated Date Inactivated Comments 07/28/2022 5:36 PM 07/28/2022 5:37 PM Care Teams Paper Stripper Relationship Specialty Start Date End Date Aminah Garay DO [address] [place] [address] [address] [place] [address] PCP - General Family Medicine 02/28/22 Radha Mejia MD Referring Physician Endocrinology Diabetes & Metabolism 05/17/21 Onel Joseph MD [address] [facility] [address] [place] [address] 86 Consulting Physician Urology 05/17/21 Juan Novak MD [address] [place] [address] [address] [place] [address] Referring Physician Cardiovascular Disease 11/15/21
--- OUTSIDE RECORDS SUMMARY | 2024-11-12 11:36 | XMS_ITS | Referral Summary ---
Author Organization [facility] Address [address] [place] [address] Care Team Providers Care School Health Assistant Name Role Phone Aminah Garya DO Primary Care Provider [phone] Source Comments [facility],non-owned Affiliates and Associated Physician Practices is amultiple site organization consisting of ambulatory clinics and hospital sitesin [place], [place], [place] and [place]. This disclosure is being madepursuant to the Care Everywhere program and may not contain all information available regarding this patient. Last updated 18.[facility] Allergies Active Allergy Reactions Criticality Noted Date Comments Nsaids Other High 05/17/2021 Acute renal failure Medications * Be aware that medications may not be up to date on this document. Alwaysverify current medications with the patient. Medication Sig Dispensed Refills Start Date End Date Status albuterol HFA (Proventil; Ventolin; Proair) 108 (90 Base) MCG/ACT inhaler 2 PUFF INHALED EVERY 4 - 6 HOURS NEEDED FOR SHORTNESS OF BREATH 02/22/2023 Active atorvastatin (Lipitor) 40 MG tablet Take 1 (one) tablet by mouth at bedtime 12/15/2023 Active budesonide (Pulmicort Flexhaler) 180 MCG/ACT inhaler 1 puff(s), Inhalation, bid, 1 each, Inhaler, 0 03/27/2023 Active Cyanocobalamin (Physicians EZ Use B-12) 1000 MCG/ML 1,000 mcg by Injection route every 14 days Sunday or Sunday Active cyclobenzaprine (Flexeril) 10 MG tablet 10 MG ORALLY TWICE A DAY NEEDED FOR MUSCLE SPASM 12/21/2023 Active DULoxetine (Cymbalta) 60 MG capsule Take 1 (one) capsule by mouth 2 times daily 09/28/2023 Active eszopiclone (Lunesta) 2 MG tablet 2 MG ORALLY EVERY DAY AT BEDTIME 11/20/2023 Active ferrous sulfate 325 (65 FE) MG tablet Take 1 (one) tablet by mouth once daily Active gabapentin (Neurontin) 300 MG capsule 300 MG ORALLY THREE TIMES A DAY 12/25/2023 Active pantoprazole EC (Protonix) 40 MG tablet Take 1 (one) tablet by mouth every morning 11/05/2023 Active rOPINIRole (Requip) 2 MG tablet 2 MG ORALLY THREE TIMES A DAY 11/15/2023 Active BD Integra Syringe 25G X 1 3 ML MISC USE TO INJECT B12 ONCE MONTHLY 11/15/2023 Active sacubitril-valsart an (Entresto) 24-26 MG tablet Take 1 (one) tablet by mouth once daily Active vitamin D, ergocalciferol, (Drisdol) 1.25 MG (63626 UT) capsule Take 1 (one) capsule by mouth every 7 days Sunday or Sunday Active L-Arginine 1000 MG Take 1,000 mg by mouth 2 times daily Active nitroGLYCERIN (Nitrodur) 0.2 MG/HR patch Apply 1 (one) patch to skin as needed (for chest pain) Active amantadine (Symmetrel) 100 MG capsule Take 1 (one) capsule by mouth 2 times daily 04/16/2024 Active acetaminophen (Tylenol) 500 MG capsule Take 2 (two) capsules by mouth 3 times daily Take 3x/day for 10 days, then as needed for pain 05/29/2024 Active aspirin EC (Ecotrin) 81 MG tablet Take 1 (one) tablet by mouth 2 times daily for 42 days Take for blood clot prevention for 6 weeks 84 tablet 05/29/2024 Active carvedilol (Coreg) 25 MG tablet Take 0.5 (one-half) tablet by mouth 2 times daily with morning and evening meal 05/30/2024 05/30/2025 Active Active Problems Problem Noted Date Diagnosed Date Presence of both artificial knee joints 01/19/20 24 Cardiomyopathy 10/30/2023 01/09/2024 Osteopenia of neck of femur 10/04/2023 05/0 09/2023 Overview (01/09/2024): Images from the original note were not included. Bone Health Rima 09/2023 Had traumatic distal femur fracture Low FRAX Last Assessment & Plan: Conservative Rx Calcium and D After the [...] exercises and demonstrated how to do these. Immunizations Name Administration Dates Next Due INFLUENZA VACCINE, ADJUVANTE D, QUADR. (FLUAD QUADRIVALENT; 65Y+) (AIIV4) 05/30/2024 Social History Tobacco Use Types Packs/Day Years Used Date Smoking Tobacco: Never Smokeless Tobacco: Never Tobacco Cessation:Counseling Given: Not Answered Alcohol Use Standard Drinks/Week Comments Never 0 (1 standard drink = 0.6 oz pur e alcohol) OASIS D0700: Social Isolation Answer Da te Recorded Frequency of experiencing loneliness or isolatio n Never 03/05/2024 OASIS A1250: Transportation Answer Date Recorded Lack of Transportation (Medical) No 03/05/2024 Lack of Transportation (Non-Medical) No 03/05/2024 Patient Unable or Declines to Respond No 03/05/2024 OASIS B1300: Health Literacy Answer Moe e Recorded Frequency of needing help to read materials from doctor or pharmacy Never 03/05/2024 AUDIT-C Answer Date Recorded Q1: How often do you have a drink containing alcohol? Never 05/29/2024 Q2: How many drinks containi ng alcohol do you have on a typical day when you are drinking? Patient does not drink Q3: How often do you have si x or more drinks on one occasion? Never 05/29/2024 Overall Financial Resource Strain (CARDIA) Answe r Date Recorded How hard is it for you to pa y for the very basics like food, housing, medical care, and heating? Not hard at all 05/29/2024 PHQ-2 Answer Date Recorded Patient Health Questionnaire-2 Score 2 07/14/2024 [facility] - Occupational Stress Questionnaire Answer Date Recorded Do you feel stress - tense, restless, nervous, or anxious, or unable to sleep at night because your mind is troubled all the time - these days? Only a little 05/29/2024 Hunger Vital Sign Answer Date Recorded Within the past 12 months, y ou worried that your food would run out before you got the money to buy more. Never true 05/29/20 24 Within the past 12 months, t he food you bought just didn't last and you didn't have money to get more. Never true 05/29/2024 PRAPARE - Transportation Answer Date Re corded In the past 12 months, has l ack of transportation kept you from medical appointments or from getting medications? No 05/11 In the past 12 months, has l ack of transportation kept you from meetings, work, or from getting things needed for daily living? No 05/29/2024 Housing Stability Vital Sign Answer Moe e Recorded In the last 12 months, was t here a time when you were not able to pay the mortgage or rent on time? No 05/29/2024 In the last 12 months, how many places have you lived? 1 05/29/2024 In the last 12 months, was t here a time when you did not have a steady place to sleep or slept in a correction (including now)? No 05/29/2024 Sex and Gender Information Value Date Recorded Sex Assigned at Not on file Gender Identity Not on file Sexual Orientation Not on file Last Filed Vital Signs Vital Sign Reading Time Taken Comments Blood Pressure 146/126 05/30/2024 9:50 AM CDT Pulse 65 05/30/2024 9:50 AM CDT Temperature 36.6 C (97.9 F) 05/30/2024 7:44 AM CDT Respiratory Rate 18 05/29/2024 1:10 PM CDT Oxygen Saturation 97% 05/30/2024 9:50 AM CDT Inhaled Oxygen Concentration - - Weight 107.6 kg (237 lb 3.2 oz) 05/29/2024 8:52 AM CDT Height 162.6 cm (5' 4 ) 05/29/2024 8:52 AM CDT Body Mass Index 40.72 05/29/2024 8:52 AM CDT Functional Status Functional Status Response Date of Assess ment Is person deaf or have serious hearing difficult y? No 05/29/2024 Is person blind or have serious difficulty seein g? No 05/29/2024 Does person have serious dif ficulty walking/climbing stairs? Yes 05/29/2024 Does person have difficulty dressing/bathing? No 05/29/2024 Does person have difficulty doing errands alone? Yes 05/29/2024 Cognitive Status Response Date of Assessm ent Does person have difficulty concentrating/remembering/making decisions? No 05/29/2024 Plan of Treatment Not on file Goals Goal Patient Goal Type Associated Problems Recent Progress Patient-Stated? Author Help patient manage total joint replacement - knee General No Lis Dickey, RN Note: D/C return home alone with [facility]; Spouse will provide transportation at D/C. Medical Devices Implanted Type Area Center Rep Device Identifier Shelf Expiration Date Model / Serial / Lot Cmnt Bone Plc R 40gm Grn Implanted:Qty: 1 on 02/14/2024 by Anders Patterson MD at [facility] Right: Knee [employer] 06/09/2026 [id number] / / [id number] Cmpnt Ptlr Std 28mm 3 Pg Kn Ser A Implanted:Qty: 1 on 02/14/2024 by Anders Patterson MD at [facility] Right: Knee [employer] 12/05/2028 [id number] / / [id number] Ins Tib 3-4 11mm Kn Xlpe Dsh Legion Implanted:Qty: 1 on 02/14/2024 by Anders Patterson MD at [facility] Right: Knee [employer] 12/30/2033 [id number] / / [id number] Cmnt Bone Plc R 40gm Grn Implanted:Qty: 1 on 05/29/2024 by Anders Patterson MD at [facility] [employer] 09/09/2026 [id number] / / [id number] Ins Tib 3-4 13mm Kn Xlpe Dsh Legion Implanted:Qty: 1 on 05/29/2024 by Anders Patterson MD at [facility] [employer] 03/17/2033 [id number] / / [id number] Cmpnt Ptlr Std 28mm 3 Pg Kn Ser A Implanted:Qty: 1 on 05/29/2024 by Anders Patterson MD at [facility] [employer] 04/07/2029 [id number] / / [id number] Procedures Procedure Name Priority Date/Time Associated Diagnosis Comments GLUCOSE - POINT OF CARE Routine 05/30/2024 7:42 AM CDT from Last 3 Months or Most Recently Relevant to Health Maintenance Results * (ABNORMAL) GLUCOSE - POINT OF CARE (05/30/2024 7:42 AM CDT) [facility] Glucose WB/POC 188(H) 70 - 106 mg/dL 05/30/2024 7:47 AM CDT [facility] Specimen Type Cap Fingerstick 2023 7:47 AM CDT [facility] Blood BLOOD SPECIMEN / Unknown 05/30/2024 7:42 AM CDT 05/30/2024 7:47 AM CDT Anders Patterson MD LAB - POINT OF CARE ORDERABLES [facility] [address] [place] [address] from Last 3 Months or Most Recently Relevant to Health Maintenance Advance Directives * Full Code (Latest Code Status on File) Date Activated Date Inactivated Comments 05/29/2024 12:39 PM 05/30/2024 2:13 PM * Full Code Date Activated Date Inactivated Comments 02/14/2024 4:06 PM 02/15/2024 6:16 PM Care Teams School Health Assistant Relationship Specialty Start Date End Date Aminah Garay DO [address] [place] [address] PCP - General Family Medicine 01/16/24
--- OUTSIDE RECORDS SUMMARY | 2024-11-12 11:36 | XMS_ITS ---
Author Organization [facility] Address [facility] [facility] [address] [place] [address] Care Team Providers Care Abstracter Name Role Phone Aminah DOUGLAS DO Primary Care Provider Wanda Carrington, Thena Unavailable [phone] REASON FOR VISIT RE: Important Update Regarding Your Care Provider Social History Sex Assigned At : Social History Observation Description Sex Assigned At Female Encounters Encounter Location Date Provider Diagnosis [facility] [employer] [place] [address] [facility] [address] [place] [address] 10/06/2024 Thena Charissa Plan Of Treatment Next Appt Details Provider Name:Kika westfall, 11/19/2024 01:45:00 PM, 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
--- OUTSIDE RECORDS SUMMARY | 2024-11-12 11:36 | XMS_ITS | Clinical Summary ---
Author Organization [facility] Address [address] [facility] [place] [address] Phone Care Team Providers Care Table Games Dealer Name Role Phone Jose Elias Abdul DO Primary Care Provider Allergies No known active allergies Medications oxyCODONE (OXYCONTIN) 10 mg Controlled Release 12 hour tablet Take 10 mg by mouth every 12 hours. Active pregabalin (LYRICA) 150 mg Capsule Take 150 mg by mouth 2 times daily. Active rosuvastatin (CRESTOR) 10 mg tablet Take 10 mg by mouth daily at bedtime. Active DULoxetine (CYMBALTA) 60 mg Capsule, Delayed Release(E.C.) Take 60 mg by mouth daily. Active cyanocobalamin, vitamin B-12, 1,000 mcg/mL Kit 1,000 mcg by Injection route every 2 weeks. Active ferrous sulfate (IRON) 325 mg (65 mg iron) tablet Take 325 mg by mouth daily. Active CALCIUM PHOSPHATE DIBAS/VIT D3 (VITAMIN D, WITH CALCIUM, ORAL) Take by mouth daily. Active rOPINIRole (REQUIP XL) 2 mg Extended Release 24 hour tablet Take 2 mg by mouth 3 times daily. Active chlorthalidone (HYGROTON) 25 mg tablet Take 12.5 mg by mouth daily. Active Active Problems Problem Noted Date Diagnosed Date Chest pain 04/29/2014 Obese 04/29/2014 Family History Medical History Relation Name Comments Cancer Father Asthma Mother Depression Mother High Cholesterol Mother Hypertension Mother Migraines Mother Diabetes Sister 1 Hypertension Sister 1 Anemia Sister 2 Asthma Sister 3 Depression Sister 4 Diabetes Sister 5 High Cholesterol Sister 6 Relation Name Status Comments Father Mother Sister 1 Alive Sister 2 Sister 3 Sister 4 Sister 5 Sister 6 Social History Tobacco Use Types Packs/Day Years Used Date Smoking Tobacco: Never Smokeless Tobacco: Never Alcohol Use Standard Drinks/Week Comments No 0 (1 standard drink = 0.6 oz pur e alcohol) Comments No Sex and Gender Information Value Date Recorded Sex Assigned at Not on file Legal Sex Female 1:52 PM CDT Gender Identity Not on file Sexual Orientation Not on file Occupation Industry Job Start Date Job End Date disability Not on file Not on file Not on file Not on file Not on file Not on file Not on file Not on file Not on file Not on file Not on file Last Filed Vital Signs Vital Sign Reading Time Taken Comments Blood Pressure 120/86 10/27/2016 10:03 AM CHAIN HOIST OPERATOR Pulse 88 10/27/2016 10:03 AM CHAIN HOIST OPERATOR Temperature 36.6 C (97.8 F) 07/22/2014 1:06 PM CHAIN HOIST OPERATOR Respiratory Rate 16 07/22/2014 1:06 PM CHAIN HOIST OPERATOR Oxygen Saturation 97% 07/22/2014 1:06 PM CHAIN HOIST OPERATOR Inhaled Oxygen Concentration - - Weight 113.4 kg (250 lb) 10/27/2016 10:03 AM CHAIN HOIST OPERATOR Height 167.6 cm (5' 6 ) 10/27/2016 10:03 AM CHAIN HOIST OPERATOR Body Mass Index 40.35 10/27/2016 10:03 AM CHAIN HOIST OPERATOR Plan of Treatment Health Maintenance Due Date Last Done Comments DTAP/TDAP/TD VACCINES (1 - Tdap) 1975 BREAST CANCER SCREENING 1996 COLORECTAL SCREENING 2001 Colorectal Cancer Screening 2001 FIT-DNA Q 3 years 2001 FIT/FOBT Q 1 year 2001 Flex Sig/CT Colonography Q 5 years 2001 PNEUMOCOCCAL VACCINE 50+ YEARS (1 of 1 - PCV) 07/06/20 06 ZOSTER VACCINE (1 of 2) 2006 OSTEOPOROSIS SCREENING 2021 INFLUENZA VACCINE (#1) 2024 RSV VACCINE (60+ or ) (1 - 1-dose 75+ series) 2031 Insurance MEDICARE PART A AND B [facility] [place] [address] Advance Directives For more information, please contact: [phone] * Full Code (Latest Code Status on File) Date Activated Date Inactivated Comments 07/22/2014 11:02 AM 07/22/2014 3:44 PM Care Teams Table Games Dealer Relationship Specialty Start Date End Date Jose Elias Abdul DO PCP - General 08/26/15
--- OUTSIDE RECORDS SUMMARY | 2024-11-12 11:36 | XMS_ITS ---
Author Organization [facility] [employer] [facility] Address [address] [facility] [address] [place] [address] Care Team Providers Care Contact Center Professional Name Role Phone Aminah DOUGLAS DO Primary Care Provider Wanda jamil CharissaAllison Unavailable [phone] Allergies Allergen (clinical drug ingredient) Drug/Non Drug Allergy documented on EMR Reaction Allergy Type Onset Date Status Non-steroidal anti-inflammatory agent (FN) NSAIDS (NON-STEROIDAL ANTI-INFLAMMATORY DRUG) (uncoded) Unknown Allergy 01/11/2024 Active REASON FOR VISIT follow-up depression, Depression screening positive, anxiety, restless legs, akathisia, insomnia, PSYCHOTHERAPY W/PATIENT W/E M Medications Medication SIG (Take, Route, Frequency, Duration) Notes Start Date End Date Status Amantadine HCl 100 MG 2 capsules each morning and one capsule every night for 90 days Active Propranolol HCl 20 MG 1 tablet Orally Tw ice a day for 30 days Active rOPINIRole HCl 2 MG 1 tablet Orally thre e times daily for 90 days Active DULoxetine HCl 60 MG 1 capsule Oral Once a day for 90 days every evening Active Eszopiclone 2 MG 1 tablet Oral Once a day for 30 days As needed for insomnia 09/25/2024 Active Gabapentin 300 MG Oral for 90 Days Active Entresto 49-51 MG Oral for 90 Days Active Atorvastatin Calcium 40 MG Oral for 90 Days Active Cyanocobalamin 1000 MCG/ML INJECT 1 VIAL (1000MCG) INTRAMUSCULARLY EVERY 2 WEEKS Injection for 84 Days Active Cyclobenzaprine HCl 10 MG Oral for 90 Days Active L-Arginine 1,000 mg Oral *Pick strength-form from Civo for eRX* 01/11/2024 Active Acetaminophen 325 MG Oral 01/11/2024 Active Pantoprazole Sodium 40 MG Oral for 90 Days Active ProAir HFA 108 (90 Base) MCG/ACT Inhalation 01/11/2024 Active BD Integra Syringe 25G X 1 3 ML USE TO INJECT B12 ONCE MONTHLY for 90 Days Active Cyanocobalamin 1000 MCG/ML Injection 01/11/2024 Active Nitroglycerin 0.2 MG/HR Transdermal 01/11/2024 Active Pantoprazole Sodium 40 MG Oral 01/11/2024 Active Ferrous Sulfate 325 (65 Fe) MG Oral 01/11/2024 Active Carvedilol 12.5 MG Oral 01/11/2024 Active DULoxetine HCl 30 MG 1 capsule Orally On ce a day for 90 days Active CHOLECALCIFEROL (VITAMIN D3) 50 MCG (2,000 UNIT) TABLET *Reorder from Civo for eRx and Interaction Alerts* 01/11/2024 Active INTEGRA SYRINGE 3 mL 25 gauge x 1 MISCELLANEOUS *Reorder from [employer] for eRx and Interaction Alerts* 01/11/2024 Active Social History Tobacco Use: Social History Observation Description Date Details (start date - stop date) Never Smoker NA - NA Sex Assigned At : Social History Observation Description Sex Assigned At Female Tobacco Control (Standard) Question Answer Notes Tobacco use: Nonsmoker AUDIT-C (Standard) Question Answer Notes Did you have a drink containing alcohol in the p ast year? No Vital Signs Blood pressure systolic 123 mm Hg 10/24/19 25 Blood pressure diastolic 82 mm Hg 025 Heart Rate 88 /min 10/24/2024 Weight 243 lbs 10/24/2024 Weight-kg 110.22 kg 10/24/2024 Height 65.00 in 10/24/2024 Height-cm 165.10 cm 10/24/2024 BMI 40.43 kg/m2 10/24/2024 Encounters Encounter Location Date Provider Diagnosis [facility] [employer] [facility] [address] [address] 10/24/2024 Allison Lou Major depressive disorder, recurrent severe without psychotic features F33.2 ; Generalized anxiety disorder F41.1 ; Restless legs syndrome G25.81 and Akathisia G25.71 Assessments Encounter Date Diagnosis (ICD Code) Assessment Notes Treatment Notes Treatment Clinical Notes Section Notes 10/24/2024 Major depressive disorder, recurrent severe without psychotic features (ICD-10 - F33.2) 10/24/2024 Generalized anxiety disorder (ICD-10 - F41.1) 10/24/2024 Restless legs syndrome (ICD-10 - G25.81) 10/24/2024 Akathisia (ICD-10 - G25.71) Plan Of Treatment Medication Medication Name Sig Start Date Stop Date Notes Amantadine HCl 100 MG 2 capsules each mo rning and one capsule every night for 90 days 01/22/2025 rOPINIRole HCl 2 MG 1 tablet Orally thre e times daily for 90 days DULoxetine HCl 60 MG 1 capsule Oral Once a day for 90 days DULoxetine HCl 30 MG 1 capsule Orally On ce a day for 90 days Amantadine HCl 100 MG 2 capsules each mo rning and one capsule every night Orally Next Appt Details Follow Up: 4 Weeks, Reason: depression,restless legs,insomnia,akathisia Provider Name:Kika westfall, 11/19/2024 01:45:00 PM, [facility] [address], [facility] [address], [place], [address], Progress Notes * MARYANNEJOSEQUANGDOB:1955 (69 yo F)Acc No.[id number]:10/24/2024 Patient: QUANG MAYA Provider: Esa LOU MD :1955 A ge:69 Y S ex:Female Date:10/24/2024 Address:[address] [place] [address] Pcp:Aminah DOUGLAS DO Subjective: * Chief Complaints: * 1 . Follow-up depression. 2. Depression screening positive. 3. Anxiety. 4. Restless legs. 5. Akathisia. 6. Insomnia. 7. PSYCHOTHERAPY W/PATIENT W/E M. * HPI: D epression Screening: SARKIS-7 (2018 Edition) F eeling nervous, anxious, or on edge?Several days, N ot being able to stop or control worrying S everal days, W orrying too much about different things S everal days, T rouble relaxing S everal days, B eing so restless that it is hard to sit still N ot at all, B ecoming easily annoyed or irritable M ore than half the days, F eeling afraid as if something awful might happen S everal . [place]-Suicide Severity Rating Scale: Suicide Risk (CSRS-screener) i n the past one month Have you wished you were or wished you could go to sleep and not wake up? N o, i n the past one month Have you actually had any thoughts of killing yourself? N o, H ave you ever done anything, started to do anything, or prepared to do anything to end your life? N o. D epression screening: PHQ-9 L ittle interest or pleasure in doing things S ever, F eeling down, depressed, or hopeless S ever, T rouble falling or staying asleep, or sleeping too much M ore than half the days, F eeling tired or having little energy M ore than half the days, P oor appetite or overeating N early every day, F eeling bad about yourself or that you are a failure, or have let yourself or your family down M ore than half the days, T rouble concentrating on things, such as reading the newspaper or watching television N ot at all, M oving or speaking so slowly that other people could have noticed; or the opposite, being so fidgety or restless that you have been moving around a lot more than usual N ot at all, T houghts that you would be better off or of hurting yourself in some way N ot at all, T otal Score 1 1, I nterpretation M oderate Depression. I ntervention D epression Screening Findings P ositve, F ollow-Up for Depression M ental health treatment assessment, Patient follow-up to return when and if necessary, Psychiatric follow-up, Psychotherapy, S uicide Risk Assessment Performed 0 10/24/2024, A dditional Evaluation for Depression P sychiatric interview and evaluation, N jaycee of the standardized tool used for adult depression screening: P atient Health Questionnaire (PHQ-9). F unctional Status: has been getting only a few hours of sleep at night in her recliner, then maybe an additional hour during the day; back pain interferes with sleep, discussed transition of care to new provider since I am leaving private practice. P sychotherapy with Med eval: Therapy with Med eval P sychotherapy with Medication management Y es, P sychotherapy done Time Spent Minute 1 6 Min, T ype of therapy done S upportive Therapy. * ROS: P erformance Met: N ormal blood pressure reading documented, follow-up not required ( G8783). * Medical History: P roblems: Acute urinary tract infection, Anxiety, Arthritis of first carpometacarpal joint of right hand, Bronchitis, Cataract, Chest pain, Chronic kidney disease stage 3, Cough, Cramp, Depressive disorder, Diabetes mellitus, Diastolic dysfunction, Essential hypertension, Fall, Fibromyalgia, Finding of immune status, Generalized anxiety disorder, Hip pain, History of bariatric surgical procedure, Hypercholesterolemia, Hyperlipidemia, Hypertensive disorder, Insomnia disorder related to another mental disorder, Kidney stone, Left ventricular hypertrophy, Long-term drug therapy, Mixed hyperlipidemia, Morbid obesity, Obstructive sleep apnea syndrome, Patient encounter status, Persistent depressive disorder, Primary insomnia, Restless legs, Severe recurrent major depression without psychotic features, Sinusitis, Tachycardia, Type 2 diabetes mellitus, Type II diabetes mellitus uncontrolled, Vitamin D deficiency, ,, Past Psychiatric History: Anxiety Disorder, abdominal aortic aneurysm: No, atrial fibrillation: No, chronic fatigue syndrome: No, essential tremor: No, hyperlipidemia: No, hypertension: Yes, Parkinson's disease: No, restless leg syndrome: No, stroke: No, subdural hematoma: No, type 1 diabetes mellitus: No, type 2 diabetes mellitus: Yes, vitamin B12 deficiency: Yes, vitamin D deficiency: Yes, restless leg syndrome: Yes, vitamin D deficiency: No. * Social History: T obacco Use: T obacco Control (Standard) T obacco use: N onsmoker. M igrated Social History: M igrated Social History: Alcohol Intake: None 06/03/2021,Tobacco Years: Never smoker 06/03/2021. D rug/Alcohol: D rugs H ave you used drugs other than those for medical reasons in the past 12 months??No. D o you smoke marijuana?: Denies. Do you drink alcohol?: No. AUDIT-C (Standard) D id you have a drink containing alcohol in the past year? N o. M iscellaneous: O ccupation: Retired. Safety issues A re there any firearms in the house? N o. A dvance Care Planning A re you your own decision-maker Y es, D o you have Power of Word Processing Operator for Health or Medical? N o. S ocial History: H melquiades Hurst arital Status: M arried, N umber of Adults in household: 2 , N umber of Children in Household: 0 , L evel of Education: F in[employer]. * Medications: T aking INTEGRA SYRINGE 3 mL 25 gauge x 1 SYRINGE, EMPTY DISPOSABLE MISCELLANEOUS , Notes to Pharmacist: *Reorder from Civo for eRx and Interaction Alerts*, Taking CHOLECALCIFEROL (VITAMIN D3) 50 MCG (2,000 UNIT) TABLET , Notes to Pharmacist: *Reorder from Civo for eRx and Interaction Alerts*, Taking Pantoprazole Sodium 40 MG Tablet Delayed Release Oral , Taking Nitroglycerin 0.2 MG/HR Patch 24 Hour Transdermal , Taking Carvedilol 12.5 MG Tablet Oral , Taking Ferrous Sulfate 325 (65 Fe) MG Tablet Oral , Taking Cyanocobalamin 1000 MCG/ML Solution Injection , Taking L-Arginine 1,000 mg Tablet Oral , Notes to Pharmacist: *Pick strength-form from Civo for eRX*, Taking Acetaminophen 325 MG Tablet Oral , Taking ProAir HFA 108 (90 Base) MCG/ACT Aerosol Solution Inhalation , Taking Pantoprazole Sodium 40 MG Tablet Delayed Release Oral , Taking BD Integra Syringe 25G X 1 3 ML Miscellaneous USE TO INJECT B12 ONCE MONTHLY , Taking Gabapentin 300 MG Capsule Oral , Taking Atorvastatin Calcium 40 MG Tablet Oral , Taking Entresto 49-51 MG Tablet Oral , Taking Cyclobenzaprine HCl 10 MG Tablet Oral , Taking Cyanocobalamin 1000 MCG/ML Solution INJECT 1 VIAL (1000MCG) INTRAMUSCULARLY EVERY 2 WEEKS Injection , Taking Eszopiclone 2 MG Tablet 1 tablet Oral Once a day As needed for insomnia, Taking Propranolol HCl 20 MG Tablet 1 tablet Orally Twice a day , Taking rOPINIRole HCl 2 MG Tablet 1 tablet Orally three times daily , Taking DULoxetine HCl 60 MG Capsule Delayed Release Particles 1 capsule Oral Once a day every evening, Notes to Pharmacist: do not fill until pt requests, Taking DULoxetine HCl 30 MG Capsule Delayed Release Particles 1 capsule Orally Once a day , Taking Amantadine HCl 100 MG Capsule 2 capsules each morning and one capsule every night Orally , Medication List reviewed and reconciled with the patient * Allergies: N SAIDS (NON-STEROIDAL ANTI-INFLAMMATORY DRUG): Allergy - Onset Date 01/11/2024. Objective: * Vitals: B P:123/82mm Hg, HR:88/min, Wt:243lbs, Wt-k.22 kg, Ht: 65.00 in, Ht-cm: 165.10 cm, BMI:40.43Index, Body Surface Area: 2.25. * Examination: P sychiatry: Appearance: w ell-groomed, well-nourished, , appears stated age. Affect / mood: a ppropriate, full range, anxious. Attention: g ood. Attitude: c ooperative. Suicidal ideation: n one. Memory status: n o impairment noted. Degree of awareness of surroundings: w ithin normal limits.? Delusions: n o. Hallucinations: n o. Insight: g ood. Intellectual functioning: n o impairment noted. Judgement: g ood. Orientation: a wake, alert and oriented x 3. Perceptual disorders: n o perceptual disorder noted. Psychomotor activity: w ithin normal range. Speech / language: a ppropriate pitch/modulation, clear and coherent, normal rate, volume, and articulation (RVR), proper grammar used. Thought content: a ppropriate. Thought process: i ntact. Assessment: * Assessment: 1. M ajor depressive disorder, recurrent severe without psychotic features - F33.2 (Primary)? 2. G eneralized anxiety disorder - F41.1 3 . R estless legs syndrome - G25.81 4 . A kathisia - G25.71 Plan: * Treatment: 2. R estless legs syndrome Refill rOPINIRole HCl Tablet, 2 MG, 1 tablet, Orally, three times daily, 90 days, 270, Refills 0.? 3. A kathisia Stop Amantadine HCl Capsule, 100 MG, 2 capsules each morning and one capsule every night, Orally;?Refill Amantadine HCl Capsule, 100 MG, 2 capsules each morning and one capsule every night, 90 days, 270, Refills 0. * Procedure Codes: G 8783 NORMAL BP READING DOC F/U NOT RQR, 53513 BEHAV ASSMT W/SCORE & DOCD/STAND INSTRUMENT, 16355 PSYCHOTHERAPY W/PATIENT W/E&M SRVCS 30 MIN, G8431 CLIN DEPRESSION SCREEN DOC, G8752 MOST RECENT SYSTOLIC BP < 140MM HG, G8754 MOST RECENT DIASTOLIC BP < 90MM HG * Follow Up: 4 Weeks (Reason: depression,restless legs,insomnia,akathisia) * Billing Information: * Visit Code: 83223 OFFICE OUTPATIENT VISIT 25 MINUTES DETAILED HISTORY AND EXAM/MODERATE MEDICAL DECISION MAKING. * Procedure Codes: G8783 NORMAL BP READING DOC F/U NOT RQR. 02238 BEHAV ASSMT W/SCORE & DOCD/STAND INSTRUMENT. 98284 PSYCHOTHERAPY W/PATIENT W/E&M SRVCS 30 MIN. G8431 CLIN DEPRESSION SCREEN DOC. G8752 MOST RECENT SYSTOLIC BP < 140MM HG. G8754 MOST RECENT DIASTOLIC BP < 90MM HG. * P PROCESSOR Sign off status: Completed true * Provider: Esa LOU MD Date: 0 10/24/2024 Generated for Melissa baugh/Matias/eTransmitting on: 0 11/12/2024 11:35 AM SKELP PROCESSOR History and Physical Notes * HPI (History of Present Illness) Category Sub-Category Detail Notes Category Not es Depression screening PHQ-9 Little inte rest or pleasure in doing things: Several days Feeling down, depressed, or hopeless: Se veral days Trouble falling or staying a sleep, or sleeping too much: More than half the days Feeling tired or having little energy: M ore than half the days Poor appetite or overeating: Nearly ever y day Feeling bad about yourself o r that you are a failure, or have let yourself or your family down: More than half the days Trouble concentrating on thi ngs, such as reading the newspaper or watching television: Not at all Moving or speaking so slowly that other people could have noticed; or the opposite, being so fidgety or restless that you have been moving around a lot more than usual: Not at all Thoughts that you would be b bala off or of hurting yourself in some way: Not at all Total Score: 11 Interpretation: Moderate Depression Intervention Depression Screening Findings: P ositve Follow-Up for Depression: [facility] treatment assessment, Patient follow-up to return when and if necessary, Psychiatric follow-up, Psychotherapy Suicide Risk Assessment Performed: 10/24 Additional Evaluation for Depression: Ps ychiatric interview and evaluation Name of the standardized too l used for adult depression screening:: Patient Health Questionnaire (PHQ-9) Functional Status has been getting only a few hours of sleep at night in her recliner, then maybe an additional hour during the day; back pain interferes with sleep, discussed transition of care to new provider since I am leaving private practice Depression Screening SARKIS-7 (2018 Edition) Feeling nervous, anxious, or on edge: Several days Not being able to stop or control worryi ng: Several days Worrying too much about different things : Several days Trouble relaxing: Several days Being so restless that it is hard to sit still: Not at all Becoming easily annoyed or irritable: Mo re than half the days Feeling afraid as if something awful zaheer ht happen: Several days Psychotherapy with Med eval Therapy with Med paul l Psychotherapy with Medication management: Yes Psychotherapy done Time Spent Minute: 16 Min Type of therapy done: Supportive Therapy [place]-Suicide Severity Rating Scale Suicide Risk (CSRS-screener) in the past one month Have you wished you were or wished you could go to sleep and not wake up?: No in the past one month Have y ou actually had any thoughts of killing yourself?: No Have you ever done anything, started to do anything, or prepared to do anything to end your life?: No Examination Category Sub-Category Detail Notes Category Not es Psychiatry Appearance: well-groomed, we ll-nourished, , appears stated age Attitude: cooperative Psychomotor activity: within normal rang e Attention: good Degree of awareness of surroundings: wit hin normal limits Orientation: awake, alert and devika ented x 3 Affect / mood: appropriate, full ra nge, anxious Speech / language: appropriate pitch/mo dulation, clear and coherent, normal rate, volume, and articulation (RVR), proper grammar used Insight: good Judgement: good Thought process: intact Thought content: appropriate Perceptual disorders: no perceptual diso rder noted Suicidal ideation: none Intellectual functioning: no impairment noted Memory status: no impairment noted Delusions: no Hallucinations: no
--- OUTSIDE RECORDS SUMMARY | 2024-11-12 11:36 | XMS_ITS | Clinical Summary ---
Author Organization [facility] [email or web address] Address [address] [place] [address] Care Team Providers Care Emt/Paramedic Name Role Phone Aminah Garay DO Primary Care Provider [phone] Source Comments [facility] [email or web address],non-owned Affiliates and Associated Physician Practices is amultiple site organization consisting of ambulatory clinics and hospital sitesin [place], [place], [place] and [place]. This disclosure is being madepursuant to the Care Everywhere program and may not contain all information available regarding this patient. Last updated 18.[facility] [email or web address] Allergies Active Allergy Reactions Criticality Noted Date [...] Active vitamin D, ergocalciferol, (Drisdol) 1.25 MG (59079 UT) capsule Take 1 (one) capsule by [...] Recorded Patient Health Questionnaire-2 Score 2 07/14/2024 [facility] - Occupational Stress [...] place to sleep or slept in a nursing home (including now)? No 05/29/2024 Sex and Gender [...] Mass Index 40.72 05/29/2024 8:52 AM CDT Plan of Treatment Health Maintenance Due Date Last Done Comments BONE DENSITY TESTING 1955 COLOGUARD (AGES 45-75) - COLON CA SCREENING 1956 COLON MONITORING 1956 COLONOSCOPY - COLON CA SCREENING 1956 CT COLONOGRAPHY - COLON CA SCREENING 1956 Colorectal Cancer Screening 1956 FIT - COLON CA SCREENING 1956 FLEX SIG - COLON CA SCREENING 1956 MAMMOGRAM 1956 MEDICARE AWV 12 MONTHS 1956 HEPATITIS C SCREENING 07/02/1974 DTAP/TDAP/TD VACCINES (1 - Tdap) 1975 PNEUMOCOCCAL VACCINE 50+ (1 of 2 - PCV) 1975 ZOSTER VACCINE (1 of 2) 2006 Respiratory Syncytial Virus (RSV) Vaccine Pt: or over 60 yrs (1 - Risk 60-74 years 1-dose series) 2016 COVID-19 VACCINE (3 - season) 2024 12/04/2020, 11/11/2020 DEPRESSION SCREENING 09/10/2024 06/19/2024 SCREENING FOR DIABETES 05/30/2027 4, 05/30/2024, 05/29/2024, Additional history exists INFLUENZA VACCINE Completed 05/30/2024, , 07/28/2020, Additional history exists HEPATITIS B VACCINE Aged Out No longe r eligible based on patient's age to complete this topic HIB VACCINE Aged Out No longer eligi ble based on patient's age to complete this topic HPV VACCINE Aged Out No longer eligi ble based on patient's age to complete this topic MENINGOCOCCAL (Group B) VACCINE Aged Out No longer eligible based on patient's age to complete this topic MENINGOCOCCAL VACCINE Aged Out No morgan gracie eligible based on patient's age to complete this topic Goals Goal Patient Goal Type Associated Problems Recent Progress Patient-Stated? 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 Shelf Expiration Date Model / Serial / Lot Cmnt Bone Plc R 40gm Grn Implanted:Qty: 1 on 02/14/2024 by Anders Patterson MD at [facility] Right: Knee [employer] 06/09/2026 [id number] / / [id number] Cmpnt Ptlr Std 28mm 3 Pg Kn Ser A Implanted:Qty: 1 on 02/14/2024 by Anders Patterson MD at [facility] Right: Knee [employer] 12/05/2028 [id number] / / [id number] Ins Tib 3-4 11mm Kn Xlpe Dsh Legion Implanted:Qty: 1 on 02/14/2024 by Anders Patterson MD at [facility] Right: Knee [employer] 12/30/2033 [id number] / / [id number] Cmnt Bone Plc R 40gm Grn Implanted:Qty: 1 on 05/29/2024 by Anders Patterson MD at [facility] [employer] 09/09/2026 [id number] / / [id number] Ins Tib 3-4 13mm Kn Xlpe Dsh Legion Implanted:Qty: 1 on 05/29/2024 by Anders Patterson MD at [facility] [employer] 03/17/2033 [id number] / / [id number] Cmpnt Ptlr Std 28mm 3 Pg Kn Ser A Implanted:Qty: 1 on 05/29/2024 by Anders Patterson MD at [facility] [employer] 04/07/2029 [id number] / / [id number] Procedures Procedure Name Priority Date/Time Associated Diagnosis Comments GLUCOSE - POINT OF CARE Routine 05/30/2024 7:42 AM CDT from Last 3 Months or Most Recently Relevant to Health Maintenance Results * (ABNORMAL) GLUCOSE - POINT OF CARE (05/30/2024 7:42 AM CDT) Glucose WB/POC 188(H) 70 - 106 mg/dL 05/30/2024 7:47 AM CDT [facility] Specimen Type Cap Fingerstick 2023 7:47 AM CDT [facility] Blood BLOOD SPECIMEN / Unknown 05/30/2024 7:42 AM CDT 05/30/2024 7:47 AM CDT Anders Patterson MD LAB - POINT OF CARE ORDERABLES [facility] [address] [place] [address] from Last 3 Months or Most Recently Relevant to Health Maintenance Advance Directives * Full Code (Latest Code Status on File) Date Activated Date Inactivated Comments 05/29/2024 12:39 PM 05/30/2024 2:13 PM * Full Code Date Activated Date Inactivated Comments 02/14/2024 4:06 PM 02/15/2024 6:16 PM Care Teams Emt/Paramedic Relationship Specialty Start Date End Date Aminah Garay DO [address] [facility] [address] [place] [id number] PCP - General Family Medicine 01/16/24
--- OUTSIDE RECORDS SUMMARY | 2024-11-12 11:36 | XMS_ITS | Patient Health Summary ---
Author Organization [facility] Address [address] [address] Care Team Providers Care Rim Technician Name Role Phone Aminah Garay DO Primary Care Provider [phone] Note from [facility],non-owned Affiliates and Associated Physician Practices is amultiple site organization consisting of ambulatory clinics and hospital sitesin [place], [place], [place] and [place]. This disclosure is being madepursuant to the Care Everywhere program and may not contain all informatio navailable regarding this patient. Last updated 18.[facility] Allergies * Nsaids(Other) -High Criticality Medications * Be aware that medications may not be up to date on this document. Alwaysverify current medications with the patient. * albuterol HFA (Proventil; Ventolin; Proair) 108 (90 Base) MCG/ACT inhaler (Started 02/22/2023) 2 PUFF INHALED EVERY 4 - 6 HOURS NEEDED FOR SHORTNESS OF BREATH * atorvastatin (Lipitor) 40 MG tablet(Started 12/15/2023) Take 1 (one) tablet by mouth at bedtime * budesonide (Pulmicort Flexhaler) 180 MCG/ACT inhaler(Started 03/27/2023) 1 puff(s), Inhalation, bid, 1 each, Inhaler, 0 * Cyanocobalamin (Physicians EZ Use B-12) 1000 MCG/ML 1,000 mcg by Injection route every 14 days Sunday or Sunday * cyclobenzaprine (Flexeril) 10 MG tablet(Started 12/21/2023) 10 MG ORALLY TWICE A DAY NEEDED FOR MUSCLE SPASM * DULoxetine (Cymbalta) 60 MG capsule(Started 09/28/2023) Take 1 (one) capsule by mouth 2 times daily * eszopiclone (Lunesta) 2 MG tablet(Started 11/20/2023) 2 MG ORALLY EVERY DAY AT BEDTIME * ferrous sulfate 325 (65 FE) MG tablet Take 1 (one) tablet by mouth once daily * gabapentin (Neurontin) 300 MG capsule(Started 12/25/2023) 300 MG ORALLY THREE TIMES A DAY * pantoprazole EC (Protonix) 40 MG tablet(Started 11/05/2023) Take 1 (one) tablet by mouth every morning * rOPINIRole (Requip) 2 MG tablet(Started 11/15/2023) 2 MG ORALLY THREE TIMES A DAY * BD Integra Syringe 25G X 1 3 ML MISC(Started 11/15/2023) USE TO INJECT B12 ONCE MONTHLY * sacubitril-valsartan (Entresto) 24-26 MG tablet Take 1 (one) tablet by mouth once daily * vitamin D, ergocalciferol, (Drisdol) 1.25 MG (02903 UT) capsule Take 1 (one) capsule by mouth every 7 days Sunday or Sunday * L-Arginine 1000 MG Take 1,000 mg by mouth 2 times daily * nitroGLYCERIN (Nitrodur) 0.2 MG/HR patch Apply 1 (one) patch to skin as needed (for chest pain) * amantadine (Symmetrel) 100 MG capsule(Started 04/16/2024) Take 1 (one) capsule by mouth 2 times daily * acetaminophen (Tylenol) 500 MG capsule(Started 05/29/2024) Take 2 (two) capsules by mouth 3 times daily Take 3x/day for 10 days, then as needed for pain * aspirin EC (Ecotrin) 81 MG tablet(Started 05/29/2024) Take 1 (one) tablet by mouth 2 times daily for 42 days Take for blood clot prevention for 6 weeks * carvedilol (Coreg) 25 MG tablet(Started 05/30/2024) Take 0.5 (one-half) tablet by mouth 2 times daily with morning and evening meal Active Problems Problem Noted Date Diagnosed Date Presence of both artificial knee joints 01/19/20 24 Cardiomyopathy 10/30/2023 01/09/2024 Osteopenia of neck of femur 10/04/2023 05/0 09/2023 Immunizations * INFLUENZA VACCINE, ADJUVANTED, QUADR. (FLUAD QUADRIVALENT; 65Y+) (AIIV4)(Given 05/30/2024) Social History Tobacco Use Types Packs/Day Years [...] Recorded Patient Health Questionnaire-2 Score 2 07/14/2024 [facility] Occup[facility] ional [facility] - Occupational Stress [...] place to sleep or slept in a assisted (including now)? 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 Device Identifier Shelf Expiration Date Model / Serial / Lot Cmnt Bone Plc R 40gm Grn Implanted:Qty: 1 on 02/14/2024 by Anders Patterson MD at [facility] Right: Knee [employer] 06/09/2026 [id number] / / [id number] Cmpnt Ptlr Std 28mm 3 Pg Kn Ser A Implanted:Qty: 1 on 02/14/2024 by Anders Patterson MD at [facility] Right: Knee [employer] 12/05/2028 [id number] / / [id number] Ins Tib 3-4 11mm Kn Xlpe Dsh Legion Implanted:Qty: 1 on 02/14/2024 by Anders Patterson MD at [facility] Right: Knee [employer] 12/30/2033 [id number] / / [id number] Cmnt Bone Plc R 40gm Grn Implanted:Qty: 1 on 05/29/2024 by Anders Patterson MD at [facility] [employer] 09/09/2026 [id number] / / [id number] Ins Tib 3-4 13mm Kn Xlpe Dsh Legion Implanted:Qty: 1 on 05/29/2024 by Anders Patterson MD at [facility] [employer] 03/17/2033 [id number] / / [id number] Cmpnt Ptlr Std 28mm 3 Pg Kn Ser A Implanted:Qty: 1 on 05/29/2024 by Anders Patterson MD at [facility] [employer] 04/07/2029 [id number] / / [id number] Procedures * XR KNEE LEFT 3VW(Performed 07/14/2024) Performed for Aftercare following left knee joint replacement surgery * APHERESIS/TRANSFUSION ORDER(Performed 06/03/2024) * GLUCOSE - POINT OF CARE(Performed 05/30/2024) * GLUCOSE - POINT OF CARE(Performed 05/30/2024) * GLUCOSE - POINT OF CARE(Performed 05/29/2024) * GLUCOSE - POINT OF CARE(Performed 05/29/2024) * GLUCOSE - POINT OF CARE(Performed 05/29/2024) * MI REVISE KNEE JOINT REPLACE,1 PART(Performed 05/29/2024) * TYPE + SCREEN PANEL(Performed 05/29/2024) Performed for Preop testing * ERYTHROCYTE SEDIMENTATION RATE(Performed 05/14/2024) Performed for Chronic pain of right knee, Presence of right artificial knee joint * C-REACTIVE PROTEIN(Performed 05/14/2024) Performed for Chronic pain of right knee, Presence of right artificial knee joint * HEMOGLOBIN A1C(Performed 04/17/2024) Performed for Preop testing, Type 2 diabetes mellitus without complication, unspecified whether group home insulin use (HCC) * COMPREHENSIVE METABOLIC PANEL(Performed 04/17/2024) Performed for Preop testing * CBC W AUTO DIFFERENTIAL(Performed 04/17/2024) Performed for Preop testing * XR KNEE RIGHT 3VW(Performed 03/27/2024) Performed for Aftercare following right knee joint replacement surgery * CARDIAC RHYTHM STRIP ORDER(Performed 02/18/2024) * APHERESIS/TRANSFUSION ORDER(Performed 02/18/2024) * EKG 12-LEAD(Performed 02/15/2024) Performed for Cardiomyopathy (HCC), PVC (premature ventricular contraction) * EKG 12-LEAD(Performed 02/14/2024) Performed for Cardiomyopathy (HCC) * GLUCOSE - POINT OF CARE(Performed 02/14/2024) * NEURAXIAL BLOCK(Performed 02/14/2024) * MI REVISE KNEE JOINT REPLACE,1 PART(Performed 02/14/2024) * BLOOD TYPE VERIFICATION(Performed 02/14/2024) * GLUCOSE - POINT OF CARE(Performed 02/14/2024) * TYPE + SCREEN PANEL(Performed 02/14/2024) * HEMOGLOBIN A1C(Performed 01/16/2024) Performed for Pre-op evaluation, Type 2 diabetes mellitus without complication, unspecified whetherlong term insulin use (HCC) * COMPREHENSIVE METABOLIC PANEL(Performed 01/16/2024) Performed for Pre-op evaluation * XR KNEE BILAT 3VW(Performed 01/08/2024) Performed for Chronic pain of both knees * DERMATOPATHOLOGY(Performed 06/17/2013) * GROSS + MICRO EXAM(Performed 02/20/2002) Results * XR Knee Left 3Vw (07/14/2024 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 [address] - 07/14/2024 3:31 PM PARK WORKER Please see progress note in Epic for results. Anders Patterson MD DIAGNOSTIC IMAGING O RDERABLES [facility] [address] * APHERESIS/TRANSFUSION ORDER (06/03/2024 3:27 AM CDT) Only the most recent of2 resultswithin the time period is included. Narrative 06/03/2024 3:27 AM CDT Ordered by an unspecified provider. Scanned Document NURSING - VITAL SIGN S AND ASSESSMENT * (ABNORMAL) GLUCOSE - POINT OF CARE (05/30/2024 10:49 AM CDT) Only the most recent of7 resultswithin the time period is included. Pathologist [facility] Glucose WB/POC 152(H) 70 - 106 mg/dL 05/30/2024 12:09 PM CDT [facility] Specimen Type Cap Fingerstick 2023 12:09 PM CDT [facility] Blood BLOOD SPECIMEN / Unknown 05/30/2024 10:49 AM CDT 05/30/2024 12:09 PM CDT Anders Patterson MD LAB - POINT OF CARE ORDERABLES Performing Organization Address [facility] Co de Phone Number [facility] [address] [place] [address] * TYPE + SCREEN PANEL (05/29/2024 8:54 AM CDT) Only the most recent of2 resultswithin the time period is included. [facility] ABO Rh O POS 05/29/2024 9:41 AM CDT [facility] Comment:History checked. Antibody Screen NEG 9:41 AM CDT [facility] Blood Bank BLOOD SPECIMEN / Unknown Venipuncture / Unknown 05/29/2024 8:54 AM CDT 05/29/2024 9:01 AM CDT Gerri Boyd DO LAB - BLOOD BANK ORD ERABLES Performing Organization Address City/[facility]/ZIP Co de Phone Number [facility] [address] [place] [address], [facility] [phone] * C-REACTIVE PROTEIN (05/14/2024 9:55 AM CDT) [facility] C-Reactive Protein 4.1 <8.0 mg/L [facility] Comment: Test Performed at: [facility] [place] [address] [place] [address] RANGEL ABARCA MD Blood BLOOD SPECIMEN / Unknown 05/14/2024 9:55 AM CDT 05/14/2024 9:55 AM CDT Anders Patterson MD LAB - CHEMISTRY REGAN GARIBAY Performing Organization Address [facility]/ZIP Co de Phone Number [address] [address] * (ABNORMAL) ERYTHROCYTE SEDIMENTATION RATE (05/14/2024 9:55 AM CDT) Erythrocyte Sedimentation Rate Westergren 32(H) < OR = 30 mm/h [facility] Comment: Test Performed at: [facility] [address] RANGEL ABARCA MD Blood BLOOD SPECIMEN / Unknown 05/14/2024 9:55 AM CDT 05/14/2024 9:55 AM CDT Anders Patterson MD LAB - HEMATOLOGY KUMAR MILLER Performing Organization Address [facility] Co de Phone Number [address] [address] * (ABNORMAL) HEMOGLOBIN A1C (04/17/2024 9:07 AM CDT) Only the most recent of2 resultswithin the time period is included. Hemoglobin A1c 6.5(H) <5.7 % 04/17/2024 9:22 AM CDT [facility] Estimated Average Glucose 140 mg/dL 04/17/2024 9:22 AM CDT [facility] Blood BLOOD SPECIMEN / Unknown Venipuncture / Unknown 04/17/2024 9:07 AM CDT 04/17/2024 9:13 AM CDT Narrative [facility] - 04/17/2024 9:22 AM CDT HbA1c Interpretation: Normal: < 5.7% Pre-diabetes: 5.7-6.4% Diabetes: Equal to or greater than 6.5% Test results diagnostic of diabetes should be repeated for confirmation. Treatment target values recommended by ADA and other clinical organizations should be used to evaluate metabolic control in patients. This test should not replace glucose testing for patients with Type 1 diabetes, pediatric patients, or women. Falsely low HbA1c results may be observed in patients with clinical conditions that shorten erythrocyte life span or decrease mean erythrocyte age such as the presence of unstable hemoglobin variants, elevated hemoglobin F level or other causes of hemolytic anemia. HbA1c may not accurately reflect glycemic control when clinical conditions that affect erythrocyte survival are present. Severe Iron deficiency anemia may yield falsely high results. Hemoglobin A1c assay should not be used to diagnose or monitor diabetes in patients with malignancy, recent blood transfusion, chronic kidney or liver disease. This method may yield falsely low results when hemoglobin (HbF) exceeds 5% in the specimen. The [place] Alinity assay for the measurement of HbA1c is a National Glycohemoglobin Standardization Program (NGSP) certified method. Janna Wharton [facility] LAB - CHEMI STRY ORDERABLES [facility] [address] [place] [address] * (ABNORMAL) CBC W AUTO DIFFERENTIAL (04/17/2024 9:07 AM CDT) Pathologist [facility] WBC 8.8 4.0 - 10.7 x10E9/L 04/17/2024 9:16 AM CDT [facility] RBC Count 4.02 3.90 - 5.20 x10E12/L 04/17/2024 9:16 AM CDT [facility] Hemoglobin 11.4(L) 11.9 - 15.8 g/dL 04/17/2024 9:16 AM CDT [facility] Hematocrit 36.4 34.8 - 46.1 % 04/17/2024 9:16 AM CDT [facility] MCV 90.5 80.0 - 98.0 fL 04/17/2024 9:16 AM CDT [facility] MCH 28.4 26.7 - 33.6 pg 04/17/2024 9:16 AM CDT [facility] MCHC 31.3(L) 31.7 - 36.3 g/dL 04/17/2024 9:16 AM CDT [facility] RDW-CV 12.5 11.3 - 14.8 % 04/17/2024 9:16 AM CDT [facility] Platelet Count 259 150 - 420 x10E9/L 04/17/2024 9:16 AM CDT [facility] MPV 9.5 7.8 - 11.4 fL 04/17/2024 9:16 AM CDT [facility] Neutrophil % 68.6 41.0 - 74.0 % 04/17/2024 9:16 AM CDT [facility] Lymphocyte % 18.2 17.0 - 47.0 % 04/17/2024 9:16 AM CDT [facility] Monocyte % 8.4 3.0 - 11.0 % 04/17/2024 9:16 AM CDT [facility] Eosinophil % 3.2 0.0 - 7.0 % 04/17/2024 9:16 AM CDT [facility] Basophil % 1.0 0.0 - 1.6 % 04/17/2024 9:16 AM CDT [facility] Immature Granulocytes % 0.6 0.0 - 1.0 % 04/17/2024 9:16 AM CDT [facility] Neutrophil Absolute 6.02 1.60 - 7.50 x10E9/L 04/17/2024 9:16 AM CDT [facility] Lymphocyte Absolute 1.60 1.00 - 4.40 x10E9/L 04/17/2024 9:16 AM CDT [facility] Monocyte Absolute 0.74 0.15 - 1.00 x10E9/L 04/17/2024 9:16 AM CDT [facility] Eosinophil Absolute 0.28 0.00 - 0.60 x10E9/L 04/17/2024 9:16 AM CDT [facility] Basophil Absolute 0.09 0.00 - 0.13 x10E9/L 04/17/2024 9:16 AM CDT [facility] Blood BLOOD SPECIMEN / Unknown Venipuncture / Unknown 04/17/2024 9:07 AM CDT 04/17/2024 9:13 AM CDT Janna Wharton [employer] LAB - HEMAT OLOGY ORDERABLES [facility] [address] [place] [address] * (ABNORMAL) COMPREHENSIVE METABOLIC PANEL (04/17/2024 9:07 AM CDT) Only the most recent of2 resultswithin the time period is included. Glucose 131(H) 70 - 105 mg/dL 04/17/2024 9:28 AM [facility] Sodium 139 136 - 145 mmol/L 04/17/2024 9:28 AM [facility] Potassium 4.7 3.5 - 5.1 mmol/L 04/17/2024 9:28 AM [facility] Chloride 105 98 - 107 mmol/L 04/17/2024 9:28 AM [facility] CO2 23 22 - 29 mmol/L 04/17/2024 9:28 AM [facility] Calcium 9.4 8.4 - 10.4 mg/dL 04/17/2024 9:28 AM [facility] Anion Gap 11 6 - 16 mmol/L 04/17/2024 9:28 AM [facility] BUN 20 7 - 26 mg/dL 04/17/2024 9:28 AM [facility] Creatinine 1.07 0.57 - 1.11 mg/dL 04/17/2024 9:28 AM [facility] Alkaline Phosphatase 149 40 - 150 U/L 04/17/2024 9:28 AM [facility] ALT 15 0 - 55 U/L 04/17/2024 9:28 AM [facility] AST 14 5 - 34 U/L 04/17/2024 9:28 AM [facility] Protein Total 6.9 6.4 - 8.3 gm/dL 04/17/2024 9:28 AM [facility] Albumin 3.6 3.4 - 5.0 gm/dL 04/17/2024 9:28 AM [facility] Bilirubin Total 0.2 0.2 - 1.2 mg/dL 04/17/2024 9:28 AM [facility] eGFR by CKD-EPI 57(L) >=90 mL/min/1.7 3 m2 04/17/2024 9:28 AM [facility] Blood BLOOD SPECIMEN / Unknown Venipuncture / Unknown 04/17/2024 9:07 AM CDT 04/17/2024 9:13 AM CDT Janna Richardsbala [employer] LAB - CHEMI STRY ORDERABLES [facility] [address] [place] [address] * XR KNEE RIGHT 3VW (03/27/2024 5:01 PM CDT) Narrative [facility] [address] - 03/27/2024 5:01 PM CDT Please see progress note in Epic for results. Anders Patterson MD DIAGNOSTIC IMAGING O RDERABLES [facility] [address] * CARDIAC RHYTHM STRIP ORDER (02/18/2024 9:56 PM CDT) Narrative 02/18/2024 9:56 PM CDT Ordered by an unspecified provider. Scanned Document CARDIAC SERVICES ORD ERABLES * EKG 12-LEAD (02/15/2024 12:31 PM CDT) Only the most recent of2 resultswithin the time period is included. Ventricular Rate 78 BPM [facility] Atrial Rate 78 BPM [facility] P-R Interval 144 ms [facility] QRS Duration ms 86 ms [facility] Q-T Interval ms 370 ms [facility] QTC Calculation (Bezet) 421 ms [facility] Calculated P [place] 44 degrees [facility] Calculated R [place] -50 degrees [facility] Calculated T [place] 39 degrees [facility] Interpretation EKG Sinus rhythm with marked sinus arrhythmia with Premature atrial complexes Low voltage QRS Left anterior fascicular block Cannot rule out Anterior infarct (cited on or before 14-FEB-2024) Abnormal ECG When compared with ECG of 14-FEB-2024 19:57, Left anterior fascicular block is now Present Questionable change in initial forces of Lateral leads T wave inversion no longer evident in Inferior leads Nonspecific T wave abnormality, improved in Lateral leads Confirmed by ISABELLA LATHAM, JANI SKINNER ([id number]) on 02/20/2024 11:11:59 AM [facility] 02/15/2024 12:3 1 PM CDT 02/20/2024 11:11 AM CDT Tanika Fu MD ECG ORDERABLES [facility] * Neuraxial Block (02/14/2024 12:40 PM CDT) Narrative George Fitzgerald APRN-CRNA - 02/14/2024 12:40 PM CDT George Fitzgerald APRN-CRNA 02/14/2024 12:41 PM Neuraxial Block Note Pre-Procedure: Procedure Name: Neuraxial Block Patient Location: OR Indications: surgical anesthesia Pre-Anesthetic Checklist: Patient identified, IV Checked, Risks and benefits discussed, Surgical consent verified, Monitors and equipment, Site examined, Pre-op evaluation done, Informed consent obtained, Questions answered/anesthesia questions answered and Allergies reviewed Anticoagulation/ Anti-thrombosis status confirmed? Yes Supplemental O2: room air Monitors: BP and continuous pluse ox Patient Condition: sedated, meaningful contact maintained throughout procedure Patient Sedated? Nursing sedation administration Sedation Type: mild Sedation Agents (manual): versed fentanyl mL Procedure: Block Type: Spinal Prep: Betadine Sterile Field: mask, sterile established, sterile gloves and cap/hat Approach: midline Skin was localized? Nursing documentation on [facility] Skin localized with: Lidocaine 1% and 3 mL Spinal Block: Needle Type: spinal needle Needle Gauge: 22 Needle Length: 127 mm Placement Site: L3-4 Number of Attempts: 3 CSF: free flow, aspiration before injection Local anesthetics used? Nursing documentation on the [facility] Spinal Local Anesthetic: Bupivacaine: 0.75% in dextrose 2 mL Degree of difficulty: moderate Procedure Tolerance: tolerated well performed while the patient was sedated Sensory Level: lower level Motor Blockade: Yes Position post procedure: supine Vital Signs: Vital signs monitored and stable throughout. See anesthesia record for details. Start Time: 02/14/2024 12:00 PM End Time: 02/14/2024 12:12 PM Total Time: 12 Staff: Anesthesia Provider: George Fitzgerald APRN-CRNA - performed the procedure Estrella Marion MD GENERAL ANESTHESI A ORDERABLES * BLOOD TYPE VERIFICATION (02/14/2024 10:16 AM CDT) ABO Rh O POS 02/14/2024 10:45 AM CDT [facility] Blood Bank BLOOD SPECIMEN / Unknown Venipuncture / Unknown 02/14/2024 10:16 AM CDT 02/14/2024 10:20 AM CDT Anders Patterson MD LAB - BLOOD BANK ORD ERABLES Performing Organization Address City/[facility] Co de Phone Number [facility] [address] [phone] * XR KNEE BILAT 3VW (01/08/2024 1:07 PM CDT) Narrative [facility] [address] - 01/08/2024 1:08 PM CDT Please see progress note in Epic for results. Anders Patterson MD DIAGNOSTIC IMAGING O RDERABLES Performing Organization Address [facility] Co de Phone Number [facility] [address] * PATHOLOGY TISSUE FOR DERMATOLOGY (06/17/2013 12:00 AM CDT) Result CASE: [id number] PATIENT: LA SPIVEY PATHOLOGIC DIAGNOSIS: R helix, inferior: BASAL CELL CARCINOMA, NODULAR TYPE, ERODED CLINICAL DATA: R/O BCC. GROSS DESCRIPTION: Received is one formalin filled container labeled with the patient's name and designated right helix inferior. The specimen consists of a shave measuring [id number], [id number], 3x2x1 mm. Jar 0. MICROSCOPIC DESCRIPTION: Within the dermis there are aggregates of basaloid cells with a high nuclear to cytoplasmic ratio and peripheral palisading. The epidermis is eroded. Electronically signed out by Jovanna Morse M.D., PhD. 06/19/2013 10:34:36AM [facility] Comment: Performed at: Dermatopathology Laboratory [facility] - Department of Dermatology [address] [place] [address] Phone number: [phone] Toll Free: [phone] FAX: [phone] 06/17/2013 06/18/2013 Sandra Provider LAB - PATHOLOGY/C YTOLOGY ORDERABLES [facility] [address] [facility]. [address] [place] [address], [facility] [phone] * GROSS + MICRO EXAM (02/20/2002 6:24 PM CDT) Result CASE NUMBER [id number] Comment: ORDERING PHYSICIAN JENNI SIMS SPECIMEN TYPE Lesion-lt upper breast Date 02/20/2002 Physician Mirza Sims Gross Description The tissue is submitted in four containers, the first of which is labeled lesion, left upper breast . Received is a cutaneous ellipse measuring 9 mm. in length x 6 mm. in width x 3 mm. in thickness. The fragment is characterized by a wrinkled brownish-clemons epithelium bearing at its center a slightly elevated, dome-shaped lesion measuring 4 mm. in greatest dimensions. No evidence of ulceration is seen. The margins of resection are stained with Kateryna ink and the specimen will be submitted in entirety along with the tips and labeled A. The second container is labeled lesion, left lower leg . Received is a cutaneous ellipse measuring 9 mm. in length x 4 mm. in width x up to 3 mm. in thickness. This fragment also exhibits a pale brownish-clemons epithelium which is wrinkled exhibiting at its center a raised, non- ulcerated dome-shaped lesion measuring approximately 3 mm. in greatest dimensions. The margins of resection are stained with Kateryna ink. The specimen will be submitted in entirety for sectioning and labeled B. The third container is labeled lesion, left upper gluteal . Received is a cutaneous ellipse measuring 7 mm. in length x 5 mm. in width x approximately 2.5 mm. in thickness. The fragment is characterized by a yellow-clemons epithelium and exhibiting in a slightly eccentric position, a raised, dome-shaped lesion measuring up to 3 mm. in greatest dimensions. The margins of resection are stained with Kateryna ink. The entire specimen will be submitted for microscopic examination and labeled C. The last specimen is labeled lesion, midline L3 . Received is a cutaneous ellipse measuring 7 mm. in length x 3 mm. in width x 2 mm. in thickness. The specimen is characterized by a pale clemons epithelium bearing at its center a dark brown lesion measuring approximately 2 mm. in greatest dimensions. The margins of resection are stained with Kateryna ink and the entire specimen is submitted in cassette labeled D. RT/bk Microscopic Exam Microscopic examination of sections labeled A reveal fragments of cutaneous tissue surfaced by a squamous epithelium that in part shows normal maturation. Centrally the lesion shows the presence of marked acanthosis. This overlies an ovoid dermal lesion that disrupts the usual construction management instructor pattern of collagen bundles. The lesion is composed of fusiform fibrocytes that at the margins infiltrate and separate the dermal collagen bands. The fibrocytes are fairly uniform in appearance and show no evidence of atypia or malignancy. Scattered histiocytic elements are noted. No evidence of giant cells or significant pigmentation is seen. The lesion is focally present at the lateral margin of resection. Sections labeled B also reveal fragments of cutaneous tissue surfaced by a squamous epithelium that in part shows normal maturation. Centrally, it again shows the changes of acanthosis. The underlying dermis once again shows a similar fibrous lesion that focally shows pigmentation. Once again, there is disruption of the usual construction management instructor pattern of the dermal collagen, but not to the degree seen in A. The lesion focally is present at the lateral margins of resection. No malignancy is seen. Sections labeled C reveal fragments of tissue surfaced by squamous epithelium that shows normal maturation. Focally, there is a dermal lesion consisting of multiple nests and sheets of bland uniform appearing nevus cells that shows little evidence of pigmentation. No evidence of host response is seen. No evidence of significant junctional activity is seen. Sections labeled D reveal fragments of cutaneous tissue surfaced by squamous epithelium that in part shows normal maturation. Centrally there is a pigmented lesion characterized by elongation of the rete pegs with hyperpigmentation of the basilar layer. Scattered melanocytes are seen, but these are not atypical. No evidence of host response is seen. No evidence of outward migration is seen. RPT/ Diagnosis I. Cutaneous tissue from the left upper breast A. Fibrous histiocytoma, incompletely excised II. Cutaneous tissue left lower leg A. Fibrous histiocytoma, incompletely excised. III. Cutaneous tissue left upper gluteal A. Intradermal nevus IV. Cutaneous tissue, mid line L3 A. Lentigo simplex Note Fibrous histiocytomas, although histologically and biologically benign may recur if incompletely excised. RPT/ Printing Worker Supervisor [facility] [place] [facility] Danny Walker M.D. [place]. 02/21/2002 1203 <4> CPT code 90925 x4 MISCELLANEOUS SAMPLES / Unknown 02/20/2002 6:24 PM CDT 02/20/2002 6:24 PM CDT Historical Provider MD LAB - PATHOLOGY/C YTOLOGY ORDERABLES Care Teams Rim Technician Relationship Specialty Start Date End Date Aminah Garay DO [address] [place] [id number] PCP - General Family Medicine 01/16/24
[2024-11-12 11:44] LABS: Anion Gap 6 mmol/L (4-12); Blood Urea Nitrogen 15 mg/dL (7-17); CRP 0.7 mg/dL (<1.0); Calcium 8.8 mg/dL (8.4-10.2); Carbon Dioxide 28 mmol/L (22-30); Chloride 106 mmol/L (98-107); Estimated Glomerular Filt Rate > 60; Glucose 119 mg/dL (65-110); Potassium 4.5 mmol/L (3.4-5.0); Sodium 140 mmol/L (137-145)
[2024-11-12 11:45] LABS: Add Urine Microscopic? YES; Appearance Urine Cloudy (Clear); Bacteria Urine None Seen /hpf; Bilirubin Urine Negative (Negative); Blood Urine Negative (Negative); Color Urine Yellow (Yellow); Glucose Urine UA Trace mg/dL (Negative); Ketones Urine Trace mg/dL (Negative); Leukocyte Esterase Ur Negative LEU/UL (Negative); Nitrate Urine Negative (Negative); Non Pathogenic Casts 0-2; Protein Urine 1+ mg/dL (Negative); RBC Urine 0-2 /hpf (0-2); Specific Grav Ur 1.025 (1.001-1.035); Squamous Epithelial Cell Urine Few /hpf (Few); Urobilinogen Urine 0.2 mg/dL (<2.0); WBC Urine 0-5 /hpf (0-3); pH Urine 5.5 (5.0-9.0)
[2024-11-12 13:55] LABS: Erythrocyte Sedimentation Rate 38 mm/hr (0-20)
== END 2024-11-12 10:18 | disposition home or self-care (01) ==
LOC: ANHLAB 10:21
PROVIDERS: PCP Family Medicine; Visit Provider Nurse Practitioner Family
DX: Z01.818 Encounter for other preprocedural examination (principal); Z79.899 Other long term (current) drug therapy
CPT/HCPCS: 36415; 80048; 81001; 85025; 85652; 86140; 93005

== ENCOUNTER 2025-04-29 10:21 | Outpatient (CLI) | payer MEDICARE, OTHER, SELFPAY ==
--- NOTE | ~2025-04-29 | XR_ITS ---
XR abdomen/kub 1V 04/29/2025 10:35 Indication: History of kidney stones Procedure: KUB Comparison: 04/25/2024 Findings: Bowel gas pattern is nonspecific. Moderate colonic fecal loading. There is a transsacral stimulator lead present. There is severe lumbar spondylosis with bridging osteophytes at most levels. There are surgical changes in the left mid abdomen. There are cholecystectomy clips. No renal stones are identified. Impression: 1: Nonspecific bowel gas pattern. No renal stones identified. Reviewed, dictated and finalized at location A. Impression: 1: Nonspecific bowel gas pattern. No renal stones identified.
== END 2025-04-29 10:22 | disposition home or self-care (01) ==
LOC: MICIMG 10:23
PROVIDERS: PCP Family Medicine; Visit Provider Urology
DX: Z87.442 Personal history of urinary calculi (principal)
CPT/HCPCS: 74018